=== PATIENT | male | born 1930 | race Caucasian/White ===

== ENCOUNTER 2016-08-16 12:51 | Emergency (ER) | payer MEDICARE, OTHER ==
[~2016-08-16] VITALS: Ht 188 cm; Wt 74.0 kg
[~2016-08-16 12:51] MED LIST: ADVA250A INH; ALBU17I INH; MONT5CHW2 CHEW; NEXI40CA PO; PROS5TAB2 PO; TAB-TAB; TAMS0.4C67 PO; WARF2.5 PO; ZOCO40TA PO
[2016-08-16 12:53] VITALS: BP 125/59; PULSE 72; RESP 16; TEMP 97.8; O2SAT 98
--- NOTE | 2016-08-16 14:02 | PD ---
HPI Chief Complaint: Fall Time Seen by Provider: 13:57 Travel History International Travel<30 days: No Contact w/Intl Traveler<30days: No Traveled to known affect area: No History of Present Illness HPI Patient is a 86-year-old male presenting to emergency for evaluation of head, neck, and left hip pain. Patient fell on the seventh floor just prior to arrival while he was visiting his . Patient states that he was carrying lunch and one hand and walking with his cane and the other when he tripped and fell. Patient states he fell onto his left hip hitting his head on her bed. He denies any loss of consciousness. He reports feeling dizzy after the fall. But denies any shortness of breath, chest pain, nausea, vomiting prior to or after the fall. He states the pain in his left hip is radiating down his left leg. He reports the pain as a 5 out of 10. Patient's past medical history is significant for atrial fibrillation, currently on Coumadin, pacemaker, asthma. PFSH Past Medical History Hx Anticoagulant Therapy: Yes (Coumadin) Arthritis: Yes Asthma: Yes Atrial Fibrillation: Yes (PACEMAKER, PLACED FOR THIS) Autoimmune Disease: No Cancer: Yes (skin) Chemotherapy: No Chest Pain: Yes Congestive Heart Failure: No COPD: No Diabetes: No Diminished Hearing: No Endocrine: No GERD: Yes Glaucoma: No Genitourinary: Yes (BLADDER RESECTION ) Hepatitis: No Hiatal Hernia: Yes Hypertension: No Immune Disorder: No Kidney Stones: No Neurologic: No Psychiatric: No Reproductive: No Myocardial Infarction: No Radiation Therapy: No Renal Failure: No Sickle Cell Disease: No Sleep Apnea: No Thyroid Disease: No Ulcer: No Past Surgical History Abdominal Surgery: Yes (umbilical hernia repair inquinal hernia repair) AICD: No Appendectomy: No Arteriovenous Shunt: No Cholecystectomy: No Ear Surgery: No Endocrine Surgery: No Eye Surgery: No Genitourinary Surgery: Yes (BLADDER RESECTION) Gynecologic Surgery: No Insulin Pump: No Joint Replacement: No Pacemaker: Yes Other Surgery: Yes Social History Alcohol Use: Yes (daily 3-4 oz) Tobacco Use: No Substance Use: No Allergies-Medications (Allergen,Severity, Reaction): Coded Allergies: Sulfa (Verified Allergy, Severe, RASH, 08/16/16) Aspirin (Verified Adverse Reaction, Severe, STIOMACH PAIN, 08/16/16) Morphine (Verified Adverse Reaction, Severe, Hallucinations, 08/16/16) Reported Meds & Prescriptions Reported Meds & Active Scripts Active Reported Proscar (Finasteride) 5 Mg Tab 5 Mg PO DAILY Flomax (Tamsulosin HCl) 0.4 Mg Cap 0.4 Mg PO DAILY Coumadin (Warfarin Sodium) 2.5 Mg Tab 2.5 Mg PO DAILY pt takes 2.5 mg daily except 5 mg once per week Zocor (Simvastatin) 40 Mg Tab 20 Mg PO HS Singulair (Montelukast Sodium) 5 Mg Chew 5 Mg CHEW HS Nexium (Esomeprazole) 40 Mg Cap 40 Mg PO DAILY Advair Diskus 250/50 (Salmeterol Xinafoate/Fluticasone) 250 Mcg/50 Mcg Inhp 1 Puff INH BID Multivitamin (Multivitamins) 1 Tab Tab Proventil Mdi (Albuterol Sulfate) 17 Gm Aero 2 Puff INH Q4-6HPRN Review of Systems Except as stated in HPI: all other systems reviewed are Neg HENT: No: Headaches, Lightheadedness Cardiovascular: No: Chest Pain or Discomfort Respiratory: No: Shortness of Breath Gastrointestinal: No: Nausea, Vomiting, Abdominal Pain Musculoskeletal: Positive: Myalgias, Pain Neurologic: Positive: Dizziness, No: Focal Abnormalities, Change in Mentation , Slurred Speech Physical Exam Narrative GENERAL: Well-developed, well-nourished, alert elderly gentleman. Resting comfortably in no acute distress. SKIN: Warm and dry. HEAD: Atraumatic. Normocephalic. EYES: Pupils equal and round. No scleral icterus. No injection or drainage. ENT: No nasal bleeding or discharge. Mucous membranes pink and moist. NECK: Trachea midline. No JVD. CARDIOVASCULAR: Irregularly irregular. No murmur appreciated. RESPIRATORY: No accessory muscle use. Clear to auscultation. Breath sounds equal bilaterally. GASTROINTESTINAL: Abdomen soft, non-tender, nondistended. Hepatic and splenic margins not palpable. MUSCULOSKELETAL: No obvious deformities. No clubbing. No cyanosis. No edema. NEUROLOGICAL: Awake and alert. No obvious cranial nerve deficits. Motor grossly within normal limits. Normal speech. PSYCHIATRIC: Appropriate mood and affect; insight and judgment normal. Data Data Last Documented VS Vital Signs Date Time Temp Pulse Resp B/P Pulse Ox O2 Delivery O2 Flow Rate FiO2 08/16/16 12:53 97.8 72 16 125/59 98 Orders Complete Blood Count With Diff (08/16/16 13:43) Basic Metabolic Panel (Bmp) (08/16/16 13:43) Act Partial Throm Time (Ptt) (08/16/16 13:43) Prothrombin Time / Inr (Pt) (08/16/16 13:43) Ct Brain W/O Iv Contrast(Rout) (08/16/16 ) Ct Cerv Spine W/O Contrast (08/16/16 ) Hip, Uni(Ap&Lat) W Ap Pelvis (08/16/16 ) Spine, Lumbar - Ltd (Ap & Lat) (08/16/16 ) Acetaminophen (Tylenol) (08/16/16 15:30) Collar [place] (08/16/16 ) Labs Laboratory Tests Test 08/16/16 14:45 White Blood Count 6.6 TH/MM3 Red Blood Count 3.73 MIL/MM3 Hemoglobin 12.1 GM/DL Hematocrit 34.6 % Mean Corpuscular Volume 92.6 FL Mean Corpuscular Hemoglobin 32.5 PG Mean Corpuscular Hemoglobin 35.1 % Concent Red Cell Distribution Width 15.3 % Platelet Count 207 TH/MM3 Mean Platelet Volume 8.4 FL Neutrophils (%) (Auto) 71.2 % Lymphocytes (%) (Auto) 16.1 % Monocytes (%) (Auto) 10.4 % Eosinophils (%) (Auto) 1.1 % Basophils (%) (Auto) 1.2 % Neutrophils # (Auto) 4.7 TH/MM3 Lymphocytes # (Auto) 1.1 TH/MM3 Monocytes # (Auto) 0.7 TH/MM3 Eosinophils # (Auto) 0.1 TH/MM3 Basophils # (Auto) 0.1 TH/MM3 CBC Comment DIFF FINAL Differential Comment Prothrombin Time 21.4 SEC Prothromb Time International 1.9 RATIO Ratio Activated Partial 34.7 SEC Thromboplast Time Sodium Level 139 MEQ/L Potassium Level 4.1 MEQ/L Chloride Level 103 MEQ/L Carbon Dioxide Level 27.1 MEQ/L Anion Gap 9 MEQ/L Blood Urea Nitrogen 34 MG/DL Creatinine 1.26 MG/DL Estimat Glomerular Filtration 54 ML/MIN Rate Random Glucose 89 MG/DL Calcium Level 9.5 MG/DL MDM Medical Decision Making Medical Screen Exam Complete: Yes Emergency Medical Condition: Yes Interpretation(s) Vital Signs Date Time Temp Pulse Resp B/P Pulse Ox O2 Delivery O2 Flow Rate FiO2 08/16/16 12:53 97.8 72 16 125/59 98 Differential Diagnosis Fracture versus dislocation versus contusion versus hemorrhage versus concussion versus other Narrative Course Patient is an 86-year-old male presenting to emergency Department for evaluation after fall. Patient is currently anticoagulated on Coumadin. Labs and imaging ordered and pending. Workup initiated triage, care patient will be transferred to a provider when a medical bed is available. Rachel Goldman Aug 16, 2016 14:02
--- NOTE | 2016-08-16 14:20 | RADRPT ---
EXAM DATE/TIME: 08/16/2016 14:01 [facility] COMPARISON: No previous studies available for comparison. INDICATIONS : Fall today. RADIATION DOSE: 35.57 CTDIvol (mGy) MEDICAL HISTORY : Cardiovascular disease. Hernia, hiatal. SURGICAL HISTORY : None. ENCOUNTER: Initial ACUITY: 1 day PAIN SCALE: 7/10 LOCATION: cranial TECHNIQUE: Multiple contiguous axial images were obtained of the head. Using automated exposure control and adj ustment of the mA and/or kV according to patient size, radiation dose was kept as low as reasonably a chievable to obtain optimal diagnostic quality images. FINDINGS: CEREBRUM: The ventricles are normal for age. No evidence of midline shift, mass lesion, hemorrhage or acute in farction. No extra-axial fluid collections are seen. POSTERIOR FOSSA: The cerebellum and brainstem are intact. The 4th ventricle is midline. The cerebellopontine angle i s unremarkable. EXTRACRANIAL: The visualized portion of the orbits is intact. SKULL: The calvaria is intact. No evidence of skull fracture. CONCLUSION: No acute intracranial disease. Per Vivar MD on August 16, 2016 at 14:17 Board Certified Radiologist. This report was verified electronically.
--- NOTE | 2016-08-16 14:46 | RADRPT ---
EXAM DATE/TIME: 08/16/2016 14:01 [facility] COMPARISON: No previous studies available for comparison. INDICATIONS : Fall today RADIATION DOSE: 21.60 CTDIvol (mGy) MEDICAL HISTORY : Cardiovascular disease. Hernia, hiatal. SURGICAL HISTORY : None. ENCOUNTER: Initial ACUITY: 1 day PAIN SCALE: 7/10 LOCATION: Neck TECHNIQUE: Volumetric scanning of the cervical spine was performed. Multiplanar reconstructions i n the sagittal, coronal and oblique axial planes were performed. Using automated exposure control a nd adjustment of the mA and/or kV according to patient size, radiation dose was kept as low as reason ably achievable to obtain optimal diagnostic quality images. FINDINGS: VERTEBRAE: Normal vertebral body height. ALIGNMENT: No evidence of subluxation. C2-C3: The bony spinal canal is normal in size. No evidence of disc bulge or herniation. The neura l foramina are bilaterally patent. There is mild facet hypertrophy. C3-C4: There is minimal asymmetric disc bulge being worse on the right with mild osteophytic ridging . There is facet uncovertebral hypertrophy being worse on the right causing some narrowing at the ri ght neural foramina. The left neural foramina appears intact. C4-C5: Disc space is narrowed. A significant impression on the thecal sac is not seen. There is mil d uncovertebral and facet hypertrophy. There is some narrowing at the neural foramina. C5-C6: Disc space is narrowed. There is a vacuum phenomenon. There is some mild posterior osteophyt ic ridging. There is uncovertebral hypertrophy particularly on the left. There is minimal narrowing of the left neural foramina. The right neural foramina appears intact. C6-C7: Disc space is narrowed. There is a vacuum phenomenon. A significant impression on the thecal sac is not seen. The neural foramina are grossly normal. C7-T1: The bony spinal canal is normal in size. No evidence of disc bulge or herniation. The neura l foramina are bilaterally patent. There is mild facet hypertrophy. CONCLUSION: Degenerative changes throughout the cervical spine. An acute bony abnormality is not seen. Raymond Mathew MD on August 16, 2016 at 14:27 Board Certified Radiologist. This report was verified electronically.
--- NOTE | 2016-08-16 14:49 | RADRPT ---
EXAM DATE/TIME: 08/16/2016 14:14 [facility] COMPARISON: No previous studies available for comparison. INDICATIONS : Fell today at the hospital MEDICAL HISTORY : None. SURGICAL HISTORY : None. ENCOUNTER: Initial ACUITY: 1 day PAIN SCORE: 6/10 LOCATION: Bilateral lumbar spine FINDINGS: Two view examination was performed. There are five non-rib bearing vertebral bodies. Mild degenerati ve changes. No fracture or subluxation. The pedicles are intact. Bony mineralization is normal. No fracture is identified. CONCLUSION: Mild degenerative changes without fracture. Per Vivar MD on August 16, 2016 at 14:47 Board Certified Radiologist. This report was verified electronically.
--- NOTE | 2016-08-16 14:50 | RADRPT ---
EXAM DATE/TIME: 08/16/2016 14:14 [facility] COMPARISON: No previous studies available for comparison. INDICATIONS : Fell today at the hospital. MEDICAL HISTORY : None. SURGICAL HISTORY : abdomen surgery for large diverticulum ENCOUNTER: Initial ACUITY: 1 day PAIN SCORE: 8/10 LOCATION: Left hip and pelvis FINDINGS: Examination of the left hip was performed with AP Pelvis. The primary and secondary trabecular patte rn of the femoral neck is intact. The hip joint is of normal width without significant sclerosis or bony hypertrophy. The acetabulum is grossly intact. Surgical clips left pelvis. CONCLUSION: No acute fracture. Per Vivar MD on August 16, 2016 at 14:48 Board Certified Radiologist. This report was verified electronically.
[2016-08-16 15:07] LABS: AUTOMATED NEUTROPHIL # 4.7 TH/MM3 (1.8-7.7); BASOPHIL # 0.1 TH/MM3 (0-0.2); BASOPHIL % 1.2 % (0.0-2.0); EOSINOPHIL # 0.1 TH/MM3 (0-0.4); EOSINOPHIL % 1.1 % (0.0-4.0); HEMATOCRIT 34.6 % (39.0-51.0); HEMO FLAGS DIFF FINAL; LYMPH % 16.1 % (9.0-44.0); LYMPHOCYTE # 1.1 TH/MM3 (1.0-4.8); MEAN CELL VOLUME 92.6 FL (80.0-100.0); MEAN CORPUSCULAR HEMOGLOBIN 32.5 PG (27.0-34.0); MEAN CORPUSCULAR HGB CONC 35.1 % (32.0-36.0); MONO % 10.4 % (0.0-8.0); NEUT % 71.2 % (16.0-70.0); PLATELET COUNT 207 TH/MM3 (150-450); RED BLOOD COUNT 3.73 MIL/MM3 (4.50-5.90); RED CELL DISTRIBUTION WIDTH 15.3 % (11.6-17.2); WHITE BLOOD COUNT 6.6 TH/MM3 (4.0-11.0)
[2016-08-16 15:29] LABS: APTT (PATIENT) 34.7 SEC (24.3-30.1); BICARBONATE 27.1 MEQ/L (21.0-32.0); INTERNATIONAL NORMALIZED RATIO 1.9 RATIO; POTASSIUM 4.1 MEQ/L (3.5-5.1); PROTHROMBIN TIME - PATIENT 21.4 SEC (9.8-11.6)
[2016-08-16] MEDS ORDERED: ACETAMINOPHEN 500 MG CPLT PO ONE (15:30)
--- NOTE | 2016-08-16 15:40 | PD ---
Data Data Last Documented VS Vital Signs Date Time Temp Pulse Resp B/P Pulse Ox O2 Delivery O2 Flow Rate FiO2 08/16/16 12:53 97.8 72 16 125/59 98 Orders Complete Blood Count With Diff (08/16/16 13:43) Basic Metabolic Panel (Bmp) (08/16/16 13:43) Act Partial Throm Time (Ptt) (08/16/16 13:43) Prothrombin Time / Inr (Pt) (08/16/16 13:43) Ct Brain W/O Iv Contrast(Rout) (08/16/16 ) Ct Cerv Spine W/O Contrast (08/16/16 ) Hip, Uni(Ap&Lat) W Ap Pelvis (08/16/16 ) Spine, Lumbar - Ltd (Ap & Lat) (08/16/16 ) Acetaminophen (Tylenol) (08/16/16 15:30) Labs Laboratory Tests Test 08/16/16 14:45 White Blood Count 6.6 TH/MM3 Red Blood Count 3.73 MIL/MM3 Hemoglobin 12.1 GM/DL Hematocrit 34.6 % Mean Corpuscular Volume 92.6 FL Mean Corpuscular Hemoglobin 32.5 PG Mean Corpuscular Hemoglobin 35.1 % Concent Red Cell Distribution Width 15.3 % Platelet Count 207 TH/MM3 Mean Platelet Volume 8.4 FL Neutrophils (%) (Auto) 71.2 % Lymphocytes (%) (Auto) 16.1 % Monocytes (%) (Auto) 10.4 % Eosinophils (%) (Auto) 1.1 % Basophils (%) (Auto) 1.2 % Neutrophils # (Auto) 4.7 TH/MM3 Lymphocytes # (Auto) 1.1 TH/MM3 Monocytes # (Auto) 0.7 TH/MM3 Eosinophils # (Auto) 0.1 TH/MM3 Basophils # (Auto) 0.1 TH/MM3 CBC Comment DIFF FINAL Differential Comment Prothrombin Time 21.4 SEC Prothromb Time International 1.9 RATIO Ratio Activated Partial 34.7 SEC Thromboplast Time Sodium Level 139 MEQ/L Potassium Level 4.1 MEQ/L Chloride Level 103 MEQ/L Carbon Dioxide Level 27.1 MEQ/L Anion Gap 9 MEQ/L Blood Urea Nitrogen 34 MG/DL Creatinine 1.26 MG/DL Estimat Glomerular Filtration 54 ML/MIN Rate Random Glucose 89 MG/DL Calcium Level 9.5 MG/DL [facility] Supervised Visit with TORSTEN: Yes Narrative Course I, Dr. Powers, have reviewed the advance practice practioner's documentation and am in agreement, met with the patient face to face, made the diagnosis, and the medical decision making was done by me. *My assessment and Findings: 86-year-old male here with complaint of pain after a trip and fall. Patient was visiting his who is impatient here. States he tripped, falling and landing on his buttock/left hip and then hit his head on the bed rail. No LOC. Patient was able to ambulate without any significant pain to the left hip. Concern is he takes Coumadin for history of atrial fibrillation. On exam, GCS 15. No evidence of external head trauma, no midline tenderness to palpation of the thoracic or lumbar spine on my evaluation. Rate which and left hip is full. CT of the head, neck and x-rays of the left hip, lumbar spine were negative. Laboratory workup unremarkable and patient was reassured and discharged. Given Tylenol for discomfort. Able to inflate without difficulty. Diagnosis Primary Impression: Contusion of left hip Qualified Code: S70.02XA - Contusion of left hip, initial encounter Additional Impressions: Closed head injury Qualified Code: S09.90XA - Closed head injury, initial encounter Fall Qualified Code: W19.XXXA - Fall, initial encounter Referrals: Primary Care Physician as needed Additional Instruction: Tylenol as needed for pain. Return to the emergency department for the warning signs discussed. Med/Other Pt SpecificInfo: No Change to Meds Disposition: 01 DISCHARGE HOME Condition: Stable Becky Powers MD Aug 16, 2016 15:40
== END 2016-08-16 16:10 | disposition home or self-care (01) ==
LOC: NEPE 12:51
DX: S70.02XA Contusion of left hip, initial encounter (principal); R42 Dizziness and giddiness; J45.909 Unspecified asthma, uncomplicated; I48.91 Unspecified atrial fibrillation; S09.90XA Unspecified injury of head, initial encounter; W01.190A Fall on same level from slipping, tripping and stumbling with subsequent striking against furniture, initial encounter; Y93.01 Activity, walking, marching and hiking; Y92.230 Patient room in hospital as the place of occurrence of the external cause; Z79.01 Long term (current) use of anticoagulants
CPT/HCPCS: 70450; 72100; 72125; 73502; 80048; 85025; 85610; 85730; 99284; L0150

== ENCOUNTER 2017-03-27 21:51 | Observation (INO) | payer MEDICARE, OTHER ==
[~2017-03-27] VITALS: Ht 188 cm; Wt 80.0 kg
[2017-03-27 22:02] VITALS: BP 226/95; PULSE 104; RESP 22; TEMP 99.5; O2SAT 96
[2017-03-27 22:08] VITALS: BP 159/76; PULSE 71; RESP 20; TEMP 97.7; O2SAT 100
--- NOTE | 2017-03-27 22:09 | PD ---
HPI Chief Complaint: Respiratory Distress Time Seen by Provider: 22:08 Travel History International Travel<30 days: No Contact w/Intl Traveler<30days: No Traveled to known affect area: No History of Present Illness HPI 86-year-old male with history of CAD, A. fib, pacemaker placement, asthma, presents to emergency department for evaluation. Patient states earlier this evening after dinner he had a fall. He states he has unsteady balance and while walking he became off balance and fell, landing on his buttocks. Did not strike his head or lose consciousness. He states since that incident he has had a chest discomfort, pressure, substernal in nature does not radiate anywhere. It has been accompanied by shortness of breath. Patient states he went home and tried to relax. He had to change his clothes because he was very diaphoretic following the fall. He continued to have shortness of breath. He contacted his son who then contacted [facility]. Patient was reported breathing 40 times per minute when [facility] arrived. Oxygen was placed in the patient states this helped alleviate his symptoms mildly but he continues to still feel shortness of breath. Denies any nausea or vomiting. Denies any focal deficits or weakness. He is having no pain. He has no other symptoms to report. PFSH Past Medical History Hx Anticoagulant Therapy: Yes (Coumadin) Arthritis: Yes Asthma: Yes Atrial Fibrillation: Yes (PACEMAKER, PLACED FOR THIS) Autoimmune Disease: No Cancer: Yes (skin) Chemotherapy: No Chest Pain: Yes Congestive Heart Failure: No COPD: No Diabetes: No Diminished Hearing: No Endocrine: No GERD: Yes Glaucoma: No Genitourinary: Yes (BLADDER RESECTION ) Hepatitis: No Hiatal Hernia: Yes Hypertension: No Immune Disorder: No Kidney Stones: No Neurologic: No Psychiatric: No Reproductive: No Myocardial Infarction: No Radiation Therapy: No Renal Failure: No Sickle Cell Disease: No Sleep Apnea: No Thyroid Disease: No Ulcer: No Past Surgical History Abdominal Surgery: Yes (umbilical hernia repair inquinal hernia repair) AICD: No Appendectomy: No Arteriovenous Shunt: No Cholecystectomy: No Ear Surgery: No Endocrine Surgery: No Eye Surgery: No Genitourinary Surgery: Yes (BLADDER RESECTION) Gynecologic Surgery: No Insulin Pump: No Joint Replacement: No Pacemaker: Yes Other Surgery: Yes Social History Alcohol Use: Yes (daily 3-4 oz) Tobacco Use: No Substance Use: No Allergies-Medications (Allergen,Severity, Reaction): Coded Allergies: Sulfa (Sulfonamide Antibiotics) (Verified Allergy, Severe, RASH, 03/27/17) aspirin (Verified Adverse Reaction, Severe, STIOMACH PAIN, 03/27/17) morphine (Verified Adverse Reaction, Severe, Hallucinations, 03/27/17) Reported Meds & Prescriptions Reported Meds & Active Scripts Active Reported Proscar (Finasteride) 5 Mg Tab 5 Mg PO DAILY Flomax (Tamsulosin HCl) 0.4 Mg Cap 0.4 Mg PO DAILY Coumadin (Warfarin Sodium) 2.5 Mg Tab 2.5 Mg PO DAILY pt takes 2.5 mg daily except 5 mg once per week Zocor (Simvastatin) 40 Mg Tab 20 Mg PO HS Singulair (Montelukast Sodium) 5 Mg Chew 5 Mg CHEW HS Nexium (Esomeprazole) 40 Mg Cap 40 Mg PO DAILY Advair Diskus 250/50 (Salmeterol Xinafoate/Fluticasone) 250 Mcg/50 Mcg Inhp 1 Puff INH BID Multivitamin (Multivitamins) 1 Tab Tab Proventil Mdi (Albuterol Sulfate) 17 Gm Aero 2 Puff INH Q4-6HPRN Review of Systems Except as stated in HPI: all other systems reviewed are Neg Physical Exam Narrative GENERAL: Well-nourished male patient, sitting up in bed, seemingly anxious, in no acute distress. SKIN: Focused skin assessment warm/dry. HEAD: Atraumatic. Normocephalic. EYES: Pupils equal and round. No scleral icterus. No injection or drainage. ENT: No nasal bleeding or discharge. Mucous membranes pink and moist. NECK: Trachea midline. No JVD. CARDIOVASCULAR: Regular rate and paced rhythm. No murmur appreciated. RESPIRATORY: Tachypneic. No accessory muscle use. Diminished bases, otherwise clear to auscultation. Breath sounds equal bilaterally. GASTROINTESTINAL: Abdomen soft, non-tender, nondistended. Hepatic and splenic margins not palpable. MUSCULOSKELETAL: No obvious deformities. No clubbing. No cyanosis. No edema. NEUROLOGICAL: Awake and alert. No obvious cranial nerve deficits. Motor grossly within normal limits. Normal speech. PSYCHIATRIC: Appropriate mood and affect; insight and judgment normal. Data Data Last Documented VS Vital Signs Date Time Temp Pulse Resp B/P (MAP) Pulse Ox O2 Delivery O2 Flow Rate FiO2 03/27/17 22:27 77 20 145/76 (99) 99 Nasal Cannula 2.00 139/74 (95) 03/27/17 22:08 97.7 Orders Orders Electrocardiogram (03/27/17 22:08) Basic Metabolic Panel (Bmp) (03/27/17 22:08) B-Type Natriuretic Peptide (03/27/17 22:08) Ckmb (Isoenzyme) Profile (03/27/17 22:08) Complete Blood Count With Diff (03/27/17:) D-Dimer (03/27/17 22:08) Magnesium (Mg) (03/27/17 22:08) Prothrombin Time / Inr (Pt) (03/27/17:08) Act Partial Throm Time (Ptt) (03/27/17:) Troponin I (03/27/17 22:08) Chest, Single Ap (03/27/17 22:08) Ecg Monitoring (03/27/17 22:08) Bilateral Bp Monitoring (03/27/17:08) Iv Access Insert/Monitor (03/27/17:) Oximetry (03/27/17 22:08) Oxygen Administration (03/27/17 22:08) Sodium Chloride 0.9% Flush (Ns Flush) (03/27/17 22:15) Sodium Chlorid 0.9% 500 Ml Inj (Ns 500 M (03/27/17 22:15) Hip, Uni(Ap&Lat) W Ap Pelvis (03/27/17 ) MDM Medical Decision Making Medical Screen Exam Complete: Yes Emergency Medical Condition: Yes Medical Record Reviewed: Yes Differential Diagnosis Asthma exacerbation versus ACS versus anginal equivalent versus PE versus anxiety Narrative Course 86-year-old male presents to the emergency department for evaluation of shortness of breath. Patient appears tachypneic. He is moderately anxious. EKG is with a paced rhythm, reviewed by my attending physician. Workup is initiated. 2300 Pt is signed out to my attending. She will assume care at this time. Condition: Stable Jessica Barksdale YOSELIN Mar 27, 2017 22:09
[2017-03-27] MEDS ORDERED: SODIUM CHLORIDE 0.9% FLUSH 10 ML FLUSH IVF PRN (22:15)
[2017-03-27] MEDS ORDERED: SODIUM CHLORID 0.9% 500 ML INJ 500 ML IV ONE (22:15)
[2017-03-27 22:27] VITALS: BP_SYST 139; BP_SYST 145; BP_DIAS 74; BP_DIAS 76; PULSE 77; RESP 20; O2SAT 99
--- NOTE | 2017-03-27 22:32 | RADRPT ---
EXAM DATE/TIME: 03/27/2017 22:12 [facility] COMPARISON: No previous studies available for comparison. INDICATIONS : Chest pain MEDICAL HISTORY : Cardiovascular disease. Hernia, hiatal. SURGICAL HISTORY : Pacemaker. ENCOUNTER: Initial ACUITY: 1 day PAIN SCORE: 0/10 LOCATION: chest FINDINGS: Pacemaker device is noted with control pack over the left chest. Lungs are focally clear. Heart size is upper limits of normal. Mediastinal contours are satisfactory for technique and projection. CONCLUSION: No acute disease. Raymond Uriostegui MD on March 27, 2017 at 22:30 Board Certified Radiologist. This report was verified electronically.
[2017-03-27 22:43] LABS: AUTOMATED NEUTROPHIL # 3.5 TH/MM3 (1.8-7.7); BASOPHIL # 0.1 TH/MM3 (0-0.2); BASOPHIL % 1.2 % (0.0-2.0); EOSINOPHIL # 0.1 TH/MM3 (0-0.4); EOSINOPHIL % 2.1 % (0.0-4.0); HEMATOCRIT 29.8 % (39.0-51.0); HEMO FLAGS DIFF FINAL; LYMPH % 30.1 % (9.0-44.0); LYMPHOCYTE # 1.8 TH/MM3 (1.0-4.8); MEAN CELL VOLUME 94.7 FL (80.0-100.0); MEAN CORPUSCULAR HEMOGLOBIN 33.7 PG (27.0-34.0); MEAN CORPUSCULAR HGB CONC 35.6 % (32.0-36.0); MONO % 9.9 % (0.0-8.0); NEUT % 56.7 % (16.0-70.0); PLATELET COUNT 211 TH/MM3 (150-450); RED BLOOD COUNT 3.14 MIL/MM3 (4.50-5.90); RED CELL DISTRIBUTION WIDTH 14.9 % (11.6-17.2); WHITE BLOOD COUNT 6.1 TH/MM3 (4.0-11.0)
[2017-03-27] MEDS ORDERED: LORazepam 2 MG/ML VIAL IV PUSH ONE (22:45)
[2017-03-27 23:00] LABS: ANION GAP 11 MEQ/L (5-15); BICARBONATE 21.4 MEQ/L (21.0-32.0); BLOOD UREA NITROGEN 33 MG/DL (7-18); CHLORIDE 106 MEQ/L (98-107); GLOMERULAR FILTRATION RATE 50 ML/MIN (>89); MAGNESIUM 1.9 MG/DL (1.5-2.5); POTASSIUM 3.7 MEQ/L (3.5-5.1); SODIUM (NA) 138 MEQ/L (136-145)
[2017-03-27 23:02] LABS: APTT (PATIENT) 26.1 SEC (24.3-30.1); INTERNATIONAL NORMALIZED RATIO 1.6 RATIO; PROTHROMBIN TIME - PATIENT 17.9 SEC (9.8-11.6)
[2017-03-27 23:04] LABS: CREATINE KINASE 236 U/L (39-308)
--- NOTE | 2017-03-27 23:04 | RADRPT ---
EXAM DATE/TIME: 03/27/2017 22:40 [facility] COMPARISON: No previous studies available for comparison. INDICATIONS : Right hip pain, fell MEDICAL HISTORY : Cardiovascular disease. Hernia, hiatal SURGICAL HISTORY : Pacemaker ENCOUNTER: Initial ACUITY: 1 day PAIN SCORE: 2/10 LOCATION: Right Hip FINDINGS: Examination of the right hip was performed with AP Pelvis. Mild degenerative changes of each hip. No fracture seen. Postsurgical changes left pelvis and lower abdomen on the right. The acetabulum is gr ossly intact. CONCLUSION: 1. Mild degenerative changes of the right hip without fracture. Per Vivar MD on March 27, 2017 at 23:02 Board Certified Radiologist. This report was verified electronically.
[2017-03-27 23:16] LABS: CKMB 9.7 NG/ML (0.5-3.6)
[2017-03-28] VITALS (7 sets, daily range): BP systolic 108–142; BP diastolic 61–71; PULSE 68–75; RESP 16–18; TEMP 97.6–98.3; O2SAT 97–99
--- NOTE | 2017-03-28 01:17 | PD ---
Data Data Last Documented VS Vital Signs Date Time Temp Pulse Resp B/P (MAP) Pulse Ox O2 Delivery O2 Flow Rate FiO2 03/28/17 01:00 68 18 142/71 (94) 99 Room Air 03/27/17 22:27 2.00 03/27/17 22:08 97.7 Orders Orders Electrocardiogram (03/27/17 22:08) Basic Metabolic Panel (Bmp) (03/27/17 22:08) B-Type Natriuretic Peptide (03/27/17 22:08) Ckmb (Isoenzyme) Profile (03/27/17 22:08) Complete Blood Count With Diff (03/27/17 22:08) D-Dimer (03/27/17 22:08) Magnesium (Mg) (03/27/17 22:08) Prothrombin Time / Inr (Pt) (03/27/17 22:08) Act Partial Throm Time (Ptt) (03/27/17 22:08) Troponin I (03/27/17 22:08) Chest, Single Ap (03/27/17 22:08) Ecg Monitoring (03/27/17 22:08) Bilateral Bp Monitoring (03/27/17 22:08) Iv Access Insert/Monitor (03/27/17 22:08) Oximetry (03/27/17 22:08) Oxygen Administration (03/27/17 22:08) Sodium Chloride 0.9% Flush (Ns Flush) (03/27/17 22:15) Sodium Chlorid 0.9% 500 Ml Inj (Ns 500 M (03/27/17 22:15) Hip, Uni(Ap&Lat) W Ap Pelvis (03/27/17 ) Lorazepam Inj (Ativan Inj) (03/27/17 22:45) CKMB (03/27/17 22:10) CKMB% (03/27/17 22:10) Ct Pulmonary Angiogram (03/27/17 23:46) Nitroglycerin 2% Oint (Nitroglycerin 2% (03/28/17 01:30) Iohexol 350 Inj (Omnipaque 350 Inj) (03/28/17 03:11) Admit Order (Ed Use Only) (03/28/17 03:31) Labs Laboratory Tests Test 03/27/17 22:10 White Blood Count 6.1 TH/MM3 Red Blood Count 3.14 MIL/MM3 Hemoglobin 10.6 GM/DL Hematocrit 29.8 % Mean Corpuscular Volume 94.7 FL Mean Corpuscular Hemoglobin 33.7 PG Mean Corpuscular Hemoglobin Concent 35.6 % Red Cell Distribution Width 14.9 % Platelet Count 211 TH/MM3 Mean Platelet Volume 8.7 FL Neutrophils (%) (Auto) 56.7 % Lymphocytes (%) (Auto) 30.1 % Monocytes (%) (Auto) 9.9 % Eosinophils (%) (Auto) 2.1 % Basophils (%) (Auto) 1.2 % Neutrophils # (Auto) 3.5 TH/MM3 Lymphocytes # (Auto) 1.8 TH/MM3 Monocytes # (Auto) 0.6 TH/MM3 Eosinophils # (Auto) 0.1 TH/MM3 Basophils # (Auto) 0.1 TH/MM3 CBC Comment DIFF FINAL Differential Comment Prothrombin Time 17.9 SEC Prothromb Time International Ratio 1.6 RATIO Activated Partial Thromboplast Time 26.1 SEC D-Dimer Quantitative (PE/DVT) 3.01 MG/L FEU Blood Urea Nitrogen 33 MG/DL Creatinine 1.34 MG/DL Random Glucose 93 MG/DL Calcium Level 9.4 MG/DL Magnesium Level 1.9 MG/DL Sodium Level 138 MEQ/L Potassium Level 3.7 MEQ/L Chloride Level 106 MEQ/L Carbon Dioxide Level 21.4 MEQ/L Anion Gap 11 MEQ/L Estimat Glomerular Filtration Rate 50 ML/MIN Total Creatine Kinase 236 U/L Creatine Kinase MB 9.7 NG/ML Troponin I 0.02 NG/ML B-Type Natriuretic Peptide 145 PG/ML [place] Medical Record Reviewed: Yes Supervised Visit with TORSTEN: Yes Interpretation(s) Last Impressions Myocardial Perfusion Scan Nuc Med 03/28/17 0000 Signed Impressions: Service Date/Time: Tuesday, March 28, 2017 12:51 - CONCLUSION: 1. No evidence of stress-induced ischemia. 2. Intact wall motion with a 61%% ejection fraction. RISK CATEGORY: Low (<1%% Annual Mortality Rate) Mayito Tellez MD CT Angiography 03/27/17 2346 Signed Impressions: Service Date/Time: Tuesday, March 28, 2017 03:10 - CONCLUSION: 1. No evidence for pulmonary embolism. 2. Minimal bibasilar patchy infiltrates. 3. Cardiomegaly minimal coronary artery calcifications. Per Vivar MD Chest X-Ray 03/27/17 2208 Signed Impressions: Service Date/Time: Monday, March 27, 2017 22:12 - CONCLUSION: No acute disease. Raymond Uriostegui MD Hip and Pelvis X-Ray 03/27/17 0000 Signed Impressions: Service Date/Time: Monday, March 27, 2017 22:40 - CONCLUSION: 1. Mild degenerative changes of the right hip without fracture. Per Vivar MD Differential Diagnosis Acute coronary syndrome, versus pulmonary embolism, versus COPD exacerbation, versus new-onset congestive heart failure Narrative Course I, Dr. Casarez, have reviewed the advance practice practitioner's documentation and am in agreement, met with the patient face to face, made the diagnosis, and the medical decision making was done by me. The patient was initially evaluated by Jessica. Please see her complete history and physical. *My assessment and Findings: The patient is an 86-year-old male who presents to [facility] emergency Department with a history of reported chest pain and shortness of breath that began earlier today. He During the course of the patients emergency department visit, the patients history, examination, and differential diagnosis were reviewed with the patient. The patient was placed on a tenant selector with oximetry and frequent blood pressure monitoring. The patient had IV access obtained and blood work sent for analysis. The patient was initially provided normal saline a 500 mL bolus, Ativan for anxiety, nitroglycerin 1 inch paste the chest wall. The patient was not provided aspirin due to his aspirin allergy. The patients laboratory studies were reviewed and remarkable for [white count of 6.1, hemoglobin 10.6, platelets 211 with 9.9 monocytes, basic metabolic profile is remarkable for BUN of 33, creatinine 1.34, CPK 236, troponin I 0.02, BNP 145, PT 17.9, INR 1.6, d-dimer 3.01. The CTA to rule out PE was ordered. Radiology studies were reviewed and remarkable for a chest x-ray and a pelvis/ hip x-ray that showed no acute abnormality. CTA to rule out PE showed no evidence of pulmonary embolism. The patients results were discussed with the patient, including the plan of care. I explained that further testing and/ or monitoring is indicated based on the patients history, examination, and/ or laboratory findings. Therefore, I recommended admission for additional evaluation. The patient expressed understanding and was agreeable with this plan. The patient was admitted to the hospital in stable condition and sent to a bed under the care of the chest pain center. Diagnosis Primary Impression: Atypical chest pain Additional Impression: Shortness of breath Admitting Information Admitting Physician Requests: Observation Condition: Stable Lula Casarez MD Mar 28, 2017 01:17
[2017-03-28] MEDS ORDERED: NITROGLYCERIN 2% OINT 1 GM PACKET TOPICAL ONE (01:30)
[2017-03-28] MEDS ORDERED: IOHEXOL 350 MG/ML 10 ML VIAL (for RAD DIAG) IVCONTRAST ONE (03:11)
--- NOTE | 2017-03-28 03:25 | RADRPT ---
EXAM DATE/TIME: 03/28/2017 03:10 [facility] COMPARISON: No previous studies available for comparison. INDICATIONS : Shortness of breath. IV CONTRAST: 70 cc Omnipaque 350 (iohexol) IV RADIATION DOSE: 23.38 CTDIvol (mGy) MEDICAL HISTORY : Cardiovascular disease. Hernia, hiatal. Gastroesophageal reflux disease. SURGICAL HISTORY : Pacemaker. ENCOUNTER: Initial ACUITY: 1 day PAIN SCALE: 0/10 LOCATION: Bilateral chest TECHNIQUE: Volumetric scanning of the chest was performed using a pulmonary embolism protocol MIP images were re constructed. Using automated exposure control and adjustment of the mA and/or kV according to patien t size, radiation dose was kept as low as reasonably achievable to obtain optimal diagnostic quality images. DICOM format image data is available electronically for review and comparison. Follow-up recommendations for detected pulmonary nodules are based at a minimum on nodule size and pa tient risk factors according to Fleischner Society Guidelines. FINDINGS: PULMONARY ARTERIES: No filling defects are seen in the pulmonary arteries through the segmental level. LUNGS: Minimal patchy densities lower lobes There is no pneumothorax . No concerning pulmonary nodule is vi sualized. PLEURAE: There is no pleural thickening or pleural effusion. MEDIASTINUM: There is good visualization of the great vessels of the middle mediastinum. No evidence of mediastin al or hilar adenopathy/mass. Cardiomegaly. Coronary artery calcifications. MUSCULOSKELETAL: Within normal limits for patient age. MISCELLANEOUS: The visualized upper abdominal organs demonstrate no acute abnormality. Cholecystectomy clips. CONCLUSION: 1. No evidence for pulmonary embolism. 2. Minimal bibasilar patchy infiltrates. 3. Cardiomegaly minimal coronary artery calcifications. Per Vivar MD on March 28, 2017 at 3:22 Board Certified Radiologist. This report was verified electronically.
[2017-03-28] MEDS ORDERED: SODIUM CHLORIDE 0.9% FLUSH 10 ML FLUSH IV FLUSH PRN (04:30)
[2017-03-28] MEDS ORDERED: ACETAMINOPHEN 500 MG CPLT PO PRN ×2 (04:30→10:00)
[2017-03-28 05:56] LABS: CREATINE KINASE 172 U/L (39-308)
[2017-03-28 06:10] LABS: CKMB 7.7 NG/ML (0.5-3.6)
--- NOTE | 2017-03-28 08:01 | HHI.HP ---
HPI Primary Care Physician Steven Milton DO Chief Complaint Chest pressure History of Present Illness 86-year-old male with history of A. fib, pacemaker, and asthma presents to emergency room for further evaluation of chest pressure. States after leaving a restaurant last evening he lost his footing and fell onto his buttocks. Denies loss of consciousness, near syncope, dizziness, or hitting his head. Reports falling 2 times this week. Proceeded home, changed his clothing ( raining out during his fall), and sat down to watch TV. Reports a gradual onset of shortness of breath, heart racing, dizziness, and substernal chest pressure. Onset 8pm. No radiation of pain. Duration one hour. No associated symptoms of nausea, vomiting, or diaphoresis. No known precipitating or relieving factors. His son called EMS. Since arrival to ED reports intermittent chest pressure lasting "a few minutes." Denies any current chest pressure. Review of Systems General: No fatigue,weakness, fever, chills, recent illness, or change in appetite. His a few months ago. Has been in his general state of health. Had pacemaker interrogated yesterday morning. HEENT: No BOOTH, no vision changes CV: As stated above. No current chest pain or pressure. History of afib, on warfarin, INR checks monthly with his PCP. Feeling of heart racing and dizziness has resolved. RESP: No SOB, cough, or recent URI. No home oxygen. History of asthma. GI: No nausea, vomiting, or bowel changes. No unintentional weight gain or weight loss. : No dysuria, urgency, or frequency EXT: No lower leg edema, no paraesthesias MS: No discomfort, change in ROM, injury, or trauma. Fell x2 this week onto buttocks. Reports "losing my footing." Ambulated with a walker. NEURO: No change in memory, LOC, motor/sensory deficits PSYCH: No anxiety or depression. Endorses recent situational stress after the of his . SKIN: No rashes, no concerning lesions Past Family Social History Allergies: Coded Allergies: Sulfa (Sulfonamide Antibiotics) (Verified Allergy, Severe, RASH, 03/27/17) aspirin (Verified Adverse Reaction, Severe, STIOMACH PAIN, 03/27/17) morphine (Verified Adverse Reaction, Severe, Hallucinations, 03/27/17) Past Medical History A. fib, asthma, arthritis, GERD Past Surgical History Umbilical hernia repair, inguinal Garcia repair, pacemaker placement, bladder resection Reported Medications Reported Meds & Active Scripts Active Reported Proscar (Finasteride) 5 Mg Tab 5 Mg PO DAILY Flomax (Tamsulosin HCl) 0.4 Mg Cap 0.4 Mg PO DAILY Coumadin (Warfarin Sodium) 2.5 Mg Tab 2.5 Mg PO DAILY pt takes 2.5 mg daily except 5 mg once per week Zocor (Simvastatin) 40 Mg Tab 20 Mg PO HS Singulair (Montelukast Sodium) 5 Mg Chew 5 Mg CHEW HS Nexium (Esomeprazole) 40 Mg Cap 40 Mg PO DAILY Advair Diskus 250/50 (Salmeterol Xinafoate/Fluticasone) 250 Mcg/50 Mcg Inhp 1 Puff INH BID Multivitamin (Multivitamins) 1 Tab Tab Proventil Mdi (Albuterol Sulfate) 17 Gm Aero 2 Puff INH Q4-6HPRN Active Ordered Medications Current Medications Medications (Trade) Dose Ordered Sig/Jose Antonio Route Start Time Stop Time Status Last Admin (NS Flush) 2 ml UNSCH PRN IVF 03/27/17 22:15 (NS Flush) 2 ml UNSCH PRN IV FLUSH 03/28/17 04:30 (NS Flush) 2 ml BID IV FLUSH 03/28/17 09:00 (Tylenol) 500 mg Q4H PRN PO 03/28/17 04:30 03/28/17 06:02 Social History No known coronary artery disease, hypertension, or diabetes. Known hyperlipidemia. Former smoker, quit 50 years ago. Endorses daily alcohol of 3-4 ounces daily. Denies any illegal drug use. Ambulates with a walker. Lives independently. Past Cardiac Testing 2010 SPECT (Dr. Galvez office)-fixed defect, normal LVH. Dr. Galvez also provided information patient has mild aortic stenosis and aortic insufficiency. Cardiac catheterization (Dr. Galicia)-Conclusions: 1. Angiographically minimal one vessel CAD in the right dominant system with systolic kinking of the mid to distal left anterior descending, no definite luminal obstruction however. 2. Normal LVSF, EF 55% with left ventricular end-diastolic pressure equal to 10. Physical Exam Vital Signs Vital Signs Date Time Temp Pulse Resp B/P (MAP) Pulse Ox O2 Delivery O2 Flow Rate FiO2 03/28/17 07:23 98.3 75 16 113/61 (78) 97 03/28/17 05:44 03/28/17 05:00 69 18 119/66 (83) 98 Nasal Cannula 2.00 03/28/17 04:39 98 Nasal Cannula 2.00 03/28/17 01:00 68 18 142/71 (94) 99 Room Air 03/27/17 22:27 77 20 145/76 (99) 99 Nasal Cannula 2.00 139/74 (95) 03/27/17 22:25 99 Nasal Cannula 2.00 03/27/17 22:08 97.7 71 20 159/76 (103) 100 Physical Exam GENERAL: Alert WN, WD, NAD, pleasant, elderly, male HEAD: NC, AT NECK: Supple, no masses, trachea midline CV: RRR, 3/6 systolic murmur, no rub, no gallop, no JVD, S1-S2 no S3-S4. RESP: Clear lungs throughout bilateral, no crackles, wheeze, rhonchi, symmetrical chest rise, nonlabored, able to speak in full sentences ABD: Soft, NT, ND, no masses, positive bowel tones EXT: Pulses +24, no dependent edema MS: Normal tone 4 extremities, nontender, no obvious deformities, full range of motion NEURO: CN II through CN XII grossly intact, motor strength 5/5 PSYCH: A+O 3, pleasant affect, appropriate speech, appropriate mood and affect , insight and judgment SKIN: Normal turgor, normal texture Laboratory Laboratory Tests Test 03/27/17 22:10 03/28/17 04:45 White Blood Count 6.1 Red Blood Count 3.14 Hemoglobin 10.6 Hematocrit 29.8 Mean Corpuscular Volume 94.7 Mean Corpuscular Hemoglobin 33.7 Mean Corpuscular Hemoglobin Concent 35.6 Red Cell Distribution Width 14.9 Platelet Count 211 Mean Platelet Volume 8.7 Neutrophils (%) (Auto) 56.7 Lymphocytes (%) (Auto) 30.1 Monocytes (%) (Auto) 9.9 Eosinophils (%) (Auto) 2.1 Basophils (%) (Auto) 1.2 Neutrophils # (Auto) 3.5 Lymphocytes # (Auto) 1.8 Monocytes # (Auto) 0.6 Eosinophils # (Auto) 0.1 Basophils # (Auto) 0.1 CBC Comment DIFF FINAL Differential Comment Prothrombin Time 17.9 Prothromb Time International Ratio 1.6 Activated Partial Thromboplast Time 26.1 D-Dimer Quantitative (PE/DVT) 3.01 Blood Urea Nitrogen 33 Creatinine 1.34 Random Glucose 93 Calcium Level 9.4 Magnesium Level 1.9 Sodium Level 138 Potassium Level 3.7 Chloride Level 106 Carbon Dioxide Level 21.4 Anion Gap 11 Estimat Glomerular Filtration Rate 50 Total Creatine Kinase 236 172 Creatine Kinase MB 9.7 7.7 Troponin I 0.02 0.02 B-Type Natriuretic Peptide 145 Result Diagram: 03/27/170 03/27/172209 Imaging Last Impressions CT Angiography 03/27/17 2346 Signed Impressions: Service Date/Time: Tuesday, March 28, 2017 03:10 - CONCLUSION: 1. No evidence for pulmonary embolism. 2. Minimal bibasilar patchy infiltrates. 3. Cardiomegaly minimal coronary artery calcifications. Per Vivar MD Chest X-Ray 03/27/172207 Signed Impressions: Service Date/Time: Monday, March 27, 2017 22:12 - CONCLUSION: No acute disease. Raymond Uriostegui MD Hip and Pelvis X-Ray 03/27/17 0000 Signed Impressions: Service Date/Time: Monday, March 27, 2017 22:40 - CONCLUSION: 1. Mild degenerative changes of the right hip without fracture. Per Vivar MD Course EKG Atrial paced Caprini VTE Risk Assessment Caprini VTE Risk Assessment: Mod/High Risk (score >= 2) Caprini Risk Assessment Model Point Value = 1 Point Value = 2 Point Value = 3 Point Value = 5 Age 41-60 Minor surgery BMI > 25 kg/m2 Swollen legs Varicose veins or History of unexplained or recurrent spontaneous Oral contraceptives or hormone replacement Sepsis (< 1 month) Serious lung disease, including pneumonia (< 1 month) Abnormal pulmonary function Acute myocardial infarction Congestive heart failure (< 1 month) History of inflammatory bowel disease Medical patient at bed rest Age 61-74 Arthroscopic surgery Major open surgery (> 45 min) Laparoscopic surgery (> 45 min) Malignancy Confined to bed (> 72 hours) Immobilizing plaster cast Central venous access Age >= 75 History of VTE Family history of VTE Factor V Leiden Prothrombin [id number] Lupus anticoagulant Anticardiolipin antibodies Elevated serum homocysteine Heparin-induced thrombocytopenia Other congenital or acquired thrombophilia Stroke (< 1 month) Elective arthroplasty Hip, pelvis, or leg fracture Acute spinal cord injury (< 1 month) Prophylaxis Regimen Total Risk Factor Score Risk Level Prophylaxis Regimen 0-1 Low Early ambulation 2 Moderate Order ONE of the following: *Sequential Compression Device (SCD) *Heparin 5000 units SQ BID 3-4 Higher Order ONE of the following medications: *Heparin 5000 units SQ TID *Enoxaparin/Lovenox 40 mg SQ daily (WT < 150 kg, CrCl > 30 mL/min) *Enoxaparin/Lovenox 30 mg SQ daily (WT < 150 kg, CrCl > 10-29 mL/min) *Enoxaparin/Lovenox 30 mg SQ BID (WT < 150 kg, CrCl > 30 mL/min) AND/OR *Sequential Compression Device (SCD) 5 or more Highest Order ONE of the following medications: *Heparin 5000 units SQ TID (Preferred with Epidurals) *Enoxaparin/Lovenox 40 mg SQ daily (WT < 150 kg, CrCl > 30 mL/min) *Enoxaparin/Lovenox 30 mg SQ daily (WT < 150 kg, CrCl > 10-29 mL/min) *Enoxaparin/Lovenox 30 mg SQ BID (WT < 150 kg, CrCl > 30 mL/min) AND *Sequential Compression Device (SCD) Assessment and Plan Assessment and Plan #1 Chest pain-admitted chest pain center. Rule out with 3 sets of EKGs and cardiac enzymes. Seen and evaluated by Dr. Joan Pope. Will call Dr. Galvez to discuss plan of care, interrogate pacemaker, and most likely proceed with a chemical stress test. Both patient and his son are agreeable to pain of care. Naturally, if further testing unremarkable will discharge later this afternoon. #2 AFib-Subtherapeutic INR-warfarin 5 mg today, interrogate pacemaker, notified of INR of 1.6, patient states he will update PCP who manages his INR level #3 Asthma-continue Singulair, albuterol and Advair Diskus #4 GERD-continue Nexium #5 Hyperlipidemia-continue simvastatin 10:[address] Galvez. Agrees to proceed with interrogation of pacemaker and SPECT nuclear. Kendra Taylor Mar 28, 2017 08:01
[2017-03-28] MEDS ORDERED: NITROGLYCERIN 0.4 MG SL 25 TABS/BTL SL PRN (08:15)
[2017-03-28] MEDS ORDERED: ONDANSETRON HCL 4 MG/2 ML VIAL IV PUSH PRN (08:15)
[2017-03-28] MEDS ORDERED: SODIUM CHLORIDE 0.9% FLUSH 10 ML FLUSH IV FLUSH SCH (09:00)
[2017-03-28] MEDS ORDERED: WARF-23 PO ×2 (10:22→11:59)
[2017-03-28] MEDS ORDERED: WARFARIN SOD 5 MG TAB PO ONE (10:45)
[2017-03-28 11:29] LABS: CREATINE KINASE 152 U/L (39-308)
[2017-03-28 11:51] LABS: CKMB 7.1 NG/ML (0.5-3.6)
[2017-03-28] MEDS ORDERED: LEXA10TA PO (11:59)
[2017-03-28] MEDS ORDERED: FINA5TAB2 PO (11:59)
[2017-03-28] MEDS ORDERED: HYDR12.57 PO (11:59)
[2017-03-28] MEDS ORDERED: ADVA250A INH (11:59)
[2017-03-28] MEDS ORDERED: WARF-18 PO (11:59)
--- NOTE | 2017-03-28 12:54 | EKG ---
Date Performed: 03/27/2017 Time Performed: 21:57:47 PTAGE: 86 years EKG: ELECTRONIC VENTRICULAR PACEMAKER ABNORMAL RHYTHM ECG Since PREVIOUS TRACING , no significant change noted DOCTOR: Joan Pope Interpretating Date/Time 03/28/2017 12:52:41
--- NOTE | 2017-03-28 12:55 | EKG ---
Date Performed: 03/28/2017 Time Performed: 04:48:08 PTAGE: 86 years EKG: ELECTRONIC VENTRICULAR PACEMAKER Since PREVIOUS TRACING , no significant change noted PREVIOUS TRACIN05/15/2008 15.34 DOCTOR: Joan Pope Interpretating Date/Time 03/28/2017 12:54:29
--- NOTE | 2017-03-28 12:56 | EKG ---
Date Performed: 03/28/2017 Time Performed: 07:32:13 PTAGE: 86 years EKG: ELECTRONIC VENTRICULAR PACEMAKER ABNORMAL RHYTHM ECG Since PREVIOUS TRACING , no significant change noted PREVIOUS TRACIN03/28/2017 04.48 DOCTOR: Joan Pope Interpretating Date/Time 03/28/2017 12:56:03
[2017-03-28] MEDS ORDERED: REGADENOSON INJ 0.4 MG/5 ML SYR ONE (13:27)
--- NOTE | 2017-03-28 15:24 | RADRPT ---
EXAM DATE/TIME: 03/28/2017 12:51 [facility] COMPARISON: No previous studies available for comparison. INDICATIONS : Substernal chest pain with dypsnea. Angina. Coronary artery disease. DOSE: 25.9 mCi Tc99m Myoview at stress. 8.3 mCi Tc99m Myoview at rest. 0.4 mg Lexiscan STRESS SYMPTOMS: Short of breath. EJECTION FRACTION: 61% MEDICAL HISTORY : Gastroesophageal reflux disease. Atrial fibrillation and asthma. SURGICAL HISTORY : Pacemaker. Bladder resection. ENCOUNTER: Initial ACUITY: 1 day PAIN SCALE: 2/10 LOCATION: Substernal chest TECHNIQUE: The patient underwent pharmacologic stress with infusion of prescribed dose. Continuous ECG tracing was monitored during stress. Gated SPECT imaging was performed after stress and conventional SPECT i maging was performed at rest. The examination was performed on a SPECT/CT scanner, both attenuation and non-corrected datasets were reviewed. FINDINGS: DISTRIBUTION: The maximum perfused segment at stress is in the lateral wall. There is a prominent amount of subdia phragmatic bowel uptake on the stress images. PERFUSION STUDY: The pattern of perfusion at stress is within normal limits. No evidence of redistribution.. GATED STUDY: There is intact wall motion and thickening without hypokinetic or dyskinetic segments. CONCLUSION: 1. No evidence of stress-induced ischemia. 2. Intact wall motion with a 61% ejection fraction. RISK CATEGORY: Low (<1% Annual Mortality Rate) Mayito Tellez MD on March 28, 2017 at 15:21 Board Certified Radiologist. This report was verified electronically.
--- NOTE | 2017-03-28 15:45 | HHI.DCPOC ---
Discharge Care Plan Diagnosis: (1) Atypical chest pain (2) Subtherapeutic international normalized ratio (INR) (3) Fall Goals to Promote Your Health * To prevent worsening of your condition and complications * To maintain your health at the optimal level Directions to Meet Your Goals Take your medications as prescribed Follow your dietary instruction Follow activity as directed Keep your appointments as scheduled Take your immunizations and boosters as scheduled If your symptoms worsen call your PCP, if no PCP go to Urgent Care Center or Emergency Room Smoking is Dangerous to Your Health. Avoid second hand smoke Call the 24-hour hour crisis hotline for domestic abuse at Kendra Taylor Mar 28, 2017 15:45
--- NOTE | 2017-03-29 06:36 | TR ---
Date Performed: 03/28/2017 Time Performed: 13:39:23 DOCTOR: Joan Pope DRUG LIST: CLINICAL HISTORY: REASON FOR TEST: Angina REASON FOR ENDING: OBSERVATION: CONCLUSION: Lexiscan stress test was performed under standard four minute protocol. Radionucl[place] e was injected one minute prior to ending the test. No electrocardiographic abormalities were present to suggest ischemia. Nuclear imaging and interpretation are pending. COMMENTS:
== END 2017-03-28 16:33 | disposition home or self-care (01) ==
LOC: NEPE 21:51 → NEDA 03-28 03:33 → NEPHCDU 03-28 05:33
PROVIDERS: ADMIT Internal Medicine Cardiovascular Disease; ATTEND Internal Medicine Cardiovascular Disease
DX: R07.89 Other chest pain (principal); I48.91 Unspecified atrial fibrillation; I35.2 Nonrheumatic aortic (valve) stenosis with insufficiency; E78.5 Hyperlipidemia, unspecified; K21.9 Gastro-esophageal reflux disease without esophagitis; J45.909 Unspecified asthma, uncomplicated; F41.9 Anxiety disorder, unspecified; Z79.01 Long term (current) use of anticoagulants; Z95.0 Presence of cardiac pacemaker; Z88.6 Allergy status to analgesic agent; Z87.891 Personal history of nicotine dependence; W19.XXXA Unspecified fall, initial encounter
CPT/HCPCS: 71010; 71275; 73502; 76937; 78452; 80048; 82550; 82552; 83735; 83880; 84484; 85025; 85379; 85610; 85730; 93005; 93017; 96374; 96375; 99285; A9502; G0378; J2060; J2405; J2785; J7040; Q9967

== ENCOUNTER 2017-08-01 09:59 | Emergency (ER) | payer MEDICARE, OTHER ==
[~2017-08-01] VITALS: Ht 182.9 cm; Wt 80.0 kg
[~2017-08-01 09:59] MED LIST changes: -ALBU17I INH; +BUTA1CAP PO; +CHOL1000 PO; +FINA5TAB2 PO; +HYDR12.57 PO; +LEXA10TA PO; -MONT5CHW2 CHEW; -NEXI40CA PO; -PROS5TAB2 PO; -TAB-TAB; -TAMS0.4C67 PO; +WARF-18 PO; +WARF-23 PO; -WARF2.5 PO; -ZOCO40TA PO
[2017-08-01 10:18] VITALS: BP 110/59; PULSE 65; RESP 20; O2SAT 100
[2017-08-01 10:32] VITALS: BP 135/62; PULSE 65; RESP 18; O2SAT 100
[2017-08-01] MEDS ORDERED: SODIUM CHLOR 0.9% 1000 ML INJ 1,000 ML IV SCH (10:45)
[2017-08-01 10:54] VITALS: RESP 18; O2SAT 99
--- NOTE | 2017-08-01 10:56 | PD ---
HPI Chief Complaint: Chest Pain Time Seen by Provider: 10:33 Travel History International Travel<30 days: No Contact w/Intl Traveler<30days: No Traveled to known affect area: No History of Present Illness HPI 87-year-old male complaint of chest pain, shortness of breath, generalized malaise and weakness. Patient states that he was admitted a month ago with generalized malaise and weakness and headache. The workup was negative. Patient states that the weakness is worse this morning. Patient states that he fell yesterday and has abrasion to the right knee. Patient denies any other injury. Patient states that he has mild pain to the anterior aspect of the right knee. Patient denies any headache. Patient states that the chest pain is substernal and left-sided chest pain aching pain without radiation. Patient denies any palpitation. Patient denies any nausea vomiting diaphoresis. Patient denies any fever chills cough and congestion. Patient denies abdominal pain. Patient denies any dysuria frequency. Patient has severe chronic back pain. Patient is going to pain clinic. Patient has history of atrial fibrillation and on Coumadin. Patient also has history of COPD, hypertension and hyperlipidemia. Patient had pacemaker placement. PFSH Past Medical History Hx Anticoagulant Therapy: Yes (Coumadin) Arthritis: Yes Asthma: Yes Atrial Fibrillation: Yes (PACEMAKER, PLACED FOR THIS) Autoimmune Disease: No Blood Disorders: Yes (COUMADIN) Depression: Yes Heart Rhythm Problems: Yes (pacemaker, coumadin for a-fib) Cancer: Yes (skin removed surgically ) Cardiac Catheterization: Yes Cardiovascular Problems: Yes High Cholesterol: Yes Chemotherapy: No Chest Pain: Yes Congestive Heart Failure: No COPD: Yes Diabetes: No Diminished Hearing: Yes (hearing aids) Endocrine: No Gastrointestinal Disorders: Yes (GERD) GERD: Yes Glaucoma: No Genitourinary: Yes (BLADDER RESECTION ) Hepatitis: No Hiatal Hernia: Yes Heparin Induced Thrombocytopen: No Hypertension: No Immune Disorder: No Inguinal Hernia: Yes Implanted Vascular Access Dvce: Yes Kidney Stones: No Medical other: Yes (enlarged prostate arthritis) Musculoskeletal: Yes (weakness) Neurologic: No Psychiatric: No Reproductive: No Respiratory: Yes Immunizations Current: Yes Myocardial Infarction: No Radiation Therapy: No Renal Failure: No Sickle Cell Disease: No Sleep Apnea: No Thyroid Disease: No Ulcer: No ?: Not Past Surgical History Abdominal Surgery: Yes (umbilical hernia repair inquinal hernia repair) AICD: No Appendectomy: No Arteriovenous Shunt: No Body Medical Devices: pacemaker medtronic Cardiac Surgery: Yes (pacemaker) Cholecystectomy: No Coronary Artery Bypass Graft: No Ear Surgery: No Endocrine Surgery: No Eye Surgery: No Genitourinary Surgery: Yes (Bladder surgery ) Gynecologic Surgery: No Insulin Pump: No Joint Replacement: No Neurologic Surgery: No Pacemaker: Yes Thoracic Surgery: Yes (pacemaker ) Other Surgery: Yes (Inguinal Hernia, cholecys, bladder reconstruction) Social History Alcohol Use: Yes (3-4 glasses per day) Tobacco Use: No Substance Use: No Allergies-Medications (Allergen,Severity, Reaction): Coded Allergies: Sulfa (Sulfonamide Antibiotics) (Verified Allergy, Severe, RASH, 03/27/17) aspirin (Verified Adverse Reaction, Severe, STIOMACH PAIN, 03/27/17) morphine (Verified Adverse Reaction, Severe, Hallucinations, 03/27/17) Reported Meds & Prescriptions Reported Meds & Active Scripts Active Gnp Vitamin D3 Extra Stre (Cholecalciferol) 1,000 Unit Tab 1,000 Units PO DAILY Reported Finasteride 5 Mg Tab 5 Mg PO DAILY Do not crush. Advair Diskus Inh (Fluticasone-Salmeterol Inh) 250-50 Mcg/Blist Aer 1 Puff INH BID Rinse mouth after use. Hydrochlorothiazide 12.5 Mg Cap 12.5 Mg PO DAILY Lexapro (Escitalopram Oxalate) 10 Mg Tab 10 Mg PO DAILY Warfarin 5 Mg Tab 5 Mg PO TUFR Warfarin 2.5 Mg Tab 2.5 Mg PO MOWETHSASU Review of Systems General / Constitutional: No: Fever Eyes: No: Visual changes HENT: No: Headaches Cardiovascular: Positive: Chest Pain or Discomfort Respiratory: Positive: Shortness of Breath Gastrointestinal: No: Abdominal Pain Genitourinary: No: Dysuria Musculoskeletal: No: Pain Skin: No Rash Neurologic: No: Weakness Psychiatric: No: Depression Endocrine: No: Polydipsia Hematologic/Lymphatic: No: Easy Bruising Physical Exam Narrative GENERAL: Well-nourished, well-developed patient. SKIN: Focused skin assessment warm/dry. HEAD: Normocephalic. EYES: No scleral icterus. No injection or drainage. NECK: Supple, trachea midline. No JVD or lymphadenopathy. CARDIOVASCULAR: Regular rate and rhythm without murmurs, gallops, or rubs. RESPIRATORY: Breath sounds equal bilaterally. No accessory muscle use. GASTROINTESTINAL: Abdomen soft, non-tender, nondistended. MUSCULOSKELETAL: No cyanosis, or edema. Patient has skin abrasion prepatellar area of the right knee. Full range of motion of the right knee. Knee joint stable. No effusion noted. BACK: Nontender without obvious deformity. No CVA tenderness. Neurologic exam: Patient is awake and alert oriented 3. Patient moves all extremities well. No obvious focal neurological deficit. Data Data Last Documented VS Vital Signs Date Time Temp Pulse Resp B/P (MAP) Pulse Ox O2 Delivery O2 Flow Rate FiO2 08/01/17 10:54 18 99 Nasal Cannula 2.00 08/01/17 10:34 65 Orders Orders Electrocardiogram (08/01/17 10:42) Complete Blood Count With Diff (08/01/17 10:42) Comprehensive Metabolic Panel (08/01/17 10:42) Creatine Kinase (Cpk) (08/01/17 10:42) Troponin I (08/01/17 10:42) Prothrombin Time / Inr (Pt) (08/01/17 10:42) Act Partial Throm Time (Ptt) (08/01/17 10:42) Urinalysis - C+S If Indicated (08/01/17 10:42) Thyroid Stimulating Hormone (08/01/17 10:42) Chest, Single Ap (08/01/17 10:42) Iv Access Insert/Monitor (08/01/17 10:42) Ecg Monitoring (08/01/17 10:42) Oximetry (08/01/17 10:42) Sodium Chlor 0.9% 1000 Ml Inj (Ns 1000 M (08/01/17 10:45) Ed Discharge Order (08/01/17 13:00) Labs Laboratory Tests Test 08/01/17 10:12 08/01/17 10:52 Urine Color YELLOW Urine Turbidity CLEAR Urine pH 6.5 Urine Specific [place] 1.013 Urine Protein NEG mg/dL Urine Glucose (UA) NEG mg/dL Urine Ketones NEG mg/dL Urine Occult Blood NEG Urine Nitrite NEG Urine Bilirubin NEG Urine Urobilinogen 2.0 MG/DL Urine Leukocyte Esterase NEG Urine RBC LESS THAN 1 /hpf Urine WBC LESS THAN 1 /hpf Urine Mucus FEW /lpf Microscopic Urinalysis Comment CULT NOT INDICATED White Blood Count 7.7 TH/MM3 Red Blood Count 3.15 MIL/MM3 Hemoglobin 10.8 GM/DL Hematocrit 29.6 % Mean Corpuscular Volume 94.1 FL Mean Corpuscular Hemoglobin 34.3 PG Mean Corpuscular Hemoglobin Concent 36.4 % Red Cell Distribution Width 14.8 % Platelet Count 222 TH/MM3 Mean Platelet Volume 8.0 FL Neutrophils (%) (Auto) 80.0 % Lymphocytes (%) (Auto) 8.9 % Monocytes (%) (Auto) 8.7 % Eosinophils (%) (Auto) 1.7 % Basophils (%) (Auto) 0.7 % Neutrophils # (Auto) 6.2 TH/MM3 Lymphocytes # (Auto) 0.7 TH/MM3 Monocytes # (Auto) 0.7 TH/MM3 Eosinophils # (Auto) 0.1 TH/MM3 Basophils # (Auto) 0.1 TH/MM3 CBC Comment AUTO DIFF Differential Comment AUTO DIFF CONFIRMED Prothrombin Time 13.0 SEC Prothromb Time International Ratio 1.3 RATIO Activated Partial Thromboplast Time 29.9 SEC Blood Urea Nitrogen 24 MG/DL Creatinine 1.14 MG/DL Random Glucose 129 MG/DL Total Protein 6.8 GM/DL Albumin 3.6 GM/DL Calcium Level 9.4 MG/DL Alkaline Phosphatase 73 U/L Aspartate Amino Transf (AST/SGOT) 27 U/L Alanine Aminotransferase (ALT/SGPT) 30 U/L Total Bilirubin 1.3 MG/DL Sodium Level 133 MEQ/L Potassium Level 3.7 MEQ/L Chloride Level 98 MEQ/L Carbon Dioxide Level 26.6 MEQ/L Anion Gap 8 MEQ/L Estimat Glomerular Filtration Rate 61 ML/MIN Total Creatine Kinase 113 U/L Troponin I LESS THAN 0.02 NG/ML Thyroid Stimulating Hormone 3rd Gen 1.700 uIU/ML [facility] Medical Decision Making Medical Screen Exam Complete: Yes Emergency Medical Condition: Yes Interpretation(s) 12:33 PM. EKG showed pacer rhythm. CBC hemoglobin 10.8 hematocrit 29.6. 80 neutrophil. Sodium 133. BUN 24. GFR 61. Cardiac enzymes are normal. UA is negative. Differential Diagnosis Differential diagnosis including musculoskeletal, angina, OR, PE, pneumothorax, electrolyte abnormality, dehydration, pneumonia, UTI, sepsis. Narrative Course 87-year-old male with chest pain. Patient also complains of worsening of generalized malaise and weakness. I spoke with milk pickup driver Dr. Zain Casarez. Advised the patient to follow with Dr. Galvez. Return if worse. Diagnosis Primary Impression: CHEST PAIN, UNSPECIFIED Additional Impression: Weakness Patient Instructions: General Instructions Additional Instructions: Continue with medications. Follow-up with personal physician and milk pickup driver. Return if worse. Med/Other Pt SpecificInfo: No Change to Meds Disposition: 01 DISCHARGE HOME Condition: Stable Michele Benton MD Aug 01, 2017 10:56
[2017-08-01 11:08] LABS: AUTOMATED NEUTROPHIL # 6.2 TH/MM3 (1.8-7.7); BASOPHIL # 0.1 TH/MM3 (0-0.2); BASOPHIL % 0.7 % (0.0-2.0); EOSINOPHIL # 0.1 TH/MM3 (0-0.4); EOSINOPHIL % 1.7 % (0.0-4.0); HEMATOCRIT 29.6 % (39.0-51.0); HEMOGLOBIN 10.8 GM/DL (13.0-17.0); LYMPH % 8.9 % (9.0-44.0); LYMPHOCYTE # 0.7 TH/MM3 (1.0-4.8); MEAN CELL VOLUME 94.1 FL (80.0-100.0); MEAN CORPUSCULAR HEMOGLOBIN 34.3 PG (27.0-34.0); MONO % 8.7 % (0.0-8.0); MONOCYTE # 0.7 TH/MM3 (0-0.9); PLATELET COUNT 222 TH/MM3 (150-450); RED BLOOD COUNT 3.15 MIL/MM3 (4.50-5.90); RED CELL DISTRIBUTION WIDTH 14.8 % (11.6-17.2); WHITE BLOOD COUNT 7.7 TH/MM3 (4.0-11.0)
[2017-08-01 11:09] LABS: MEAN CORPUSCULAR HGB CONC 36.4 % (32.0-36.0)
[2017-08-01 11:13] LABS: BILIRUBIN, URINE NEG (NEG); BLOOD, URINE NEG (NEG); GLUCOSE,URINE NEG (NEG); KETONE, URINE NEG (NEG); MUCUS URINE FEW /lpf (OCC); NITRITE,URINE NEG (NEG); PH, URINE 6.5 (5.0-8.5); URINE COLOR YELLOW (YELLW/STRAW); URINE LEUKOCYTE ESTERASE NEG (NEG)
[2017-08-01 11:17] LABS: INTERNATIONAL NORMALIZED RATIO 1.3 RATIO
[2017-08-01 11:34] LABS: ALBUMIN 3.6 GM/DL (3.4-5.0); ALT (GPT) 30 U/L (12-78); AST (GOT) 27 U/L (15-37); BICARBONATE 26.6 MEQ/L (21.0-32.0); BLOOD UREA NITROGEN 24 MG/DL (7-18); CALCIUM 9.4 MG/DL (8.5-10.1); CHLORIDE 98 MEQ/L (98-107); CREATININE 1.14 MG/DL (0.60-1.30); GLOMERULAR FILTRATION RATE 61 ML/MIN (>89); GLUCOSE,RANDOM 129 MG/DL (74-106); SODIUM (NA) 133 MEQ/L (136-145)
[2017-08-01 11:44] LABS: ALKALINE PHOSPHATASE 73 U/L (45-117); TOTAL BILIRUBIN ADULT 1.3 MG/DL (0.2-1.0); TOTAL PROTEIN 6.8 GM/DL (6.4-8.2); TROPONIN I LESS THAN 0.02 NG/ML (0.02-0.05)
--- NOTE | 2017-08-01 12:11 | RADRPT ---
EXAM DATE/TIME: 08/01/2017 11:01 [facility] COMPARISON: CHEST SINGLE AP, July 05, 2017, 20:58. INDICATIONS : Chest pain, short of breath, general weakness for 4 days MEDICAL HISTORY : Chronic obstructive pulmonary disease. A-fib, asthma SURGICAL HISTORY : Pacemaker. ENCOUNTER: Initial ACUITY: 4 - 6 days PAIN SCORE: 3/10 LOCATION: Bilateral chest FINDINGS: Heart is mildly enlarged. Single lead pacemaker remains in good position. There is mild interstitial vascular prominence without evidence of consolidating airspace disease or pulmonary edema. There are no pleural effusions. CONCLUSION: Cardiomegaly with mild interstitial vascular prominence but no other findings of significant congesti on. No evidence of consolidating airspace disease. Pacemaker Kenny Mares MD on August 01, 2017 at 12:08 Board Certified Radiologist. This report was verified electronically.
--- NOTE | 2017-08-01 21:52 | EKG ---
Date Performed: 08/01/2017 Time Performed: 10:23:54 PTAGE: 87 years EKG: ELECTRONIC VENTRICULAR PACEMAKER ABNORMAL RHYTHM ECG PREVIOUS TRACING : 07/06/2017 04.19 Since the prior tracing, there has been no significant gibbons cherie DOCTOR: Afsaneh Almazan Interpretating Date/Time 08/01/2017 21:50:00
== END 2017-08-01 13:45 | disposition home or self-care (01) ==
LOC: NEPC 09:59
DX: R07.9 Chest pain, unspecified (principal); R53.1 Weakness; R53.81 Other malaise; R06.02 Shortness of breath; R51 Headache; M54.9 Dorsalgia, unspecified; G89.29 Other chronic pain; I48.91 Unspecified atrial fibrillation; R94.31 Abnormal electrocardiogram [ECG] [EKG]
CPT/HCPCS: 71045; 80053; 81001; 82550; 84443; 84484; 85025; 85610; 85730; 93005; 99284; J7030

== ENCOUNTER 2017-08-10 08:03 | Day surgery (SDC) | payer MEDICARE, OTHER ==
[~2017-08-10] VITALS: Ht 188 cm; Wt 77.5 kg
[~2017-08-10 08:03] MED LIST changes: -BUTA1CAP PO
[2017-08-10 09:07] LABS: AUTOMATED NEUTROPHIL # 4.2 TH/MM3 (1.8-7.7); BASOPHIL % 0.8 % (0.0-2.0); EOSINOPHIL # 0.1 TH/MM3 (0-0.4); EOSINOPHIL % 1.2 % (0.0-4.0); HEMOGLOBIN 10.6 GM/DL (13.0-17.0); LYMPH % 12.8 % (9.0-44.0); LYMPHOCYTE # 0.7 TH/MM3 (1.0-4.8); MEAN CELL VOLUME 93.4 FL (80.0-100.0); MEAN CORPUSCULAR HEMOGLOBIN 32.9 PG (27.0-34.0); MEAN CORPUSCULAR HGB CONC 35.2 % (32.0-36.0); MEAN PLATELET VOLUME 7.4 FL (7.0-11.0); MONO % 10.6 % (0.0-8.0); MONOCYTE # 0.6 TH/MM3 (0-0.9); NEUT % 74.6 % (16.0-70.0); PLATELET COUNT 232 TH/MM3 (150-450); RED BLOOD COUNT 3.21 MIL/MM3 (4.50-5.90); RED CELL DISTRIBUTION WIDTH 14.6 % (11.6-17.2); WHITE BLOOD COUNT 5.7 TH/MM3 (4.0-11.0)
[2017-08-10 09:16] LABS: INTERNATIONAL NORMALIZED RATIO 1.7 RATIO; PROTHROMBIN TIME - PATIENT 17.4 SEC (9.8-11.6)
[2017-08-10 09:28] LABS: BICARBONATE 26.4 MEQ/L (21.0-32.0); CREATININE 1.1 MG/DL (0.60-1.30)
[2017-08-10] MEDS ORDERED: NS 1000 ML IV SCH (09:45)
[2017-08-10] MEDS ORDERED: CHLORHEXIDINE GLUCONATE 2 % 1 PACK (2 CLOTHS) TOPICAL SCH (09:45)
[2017-08-10] MEDS ORDERED: POVIDONE IODINE 5% (ANTISEPSIS KIT) 4 APPLICATIONS EACH NARE SCH (09:45)
[2017-08-10] MEDS ORDERED: LORazepam 1 MG TAB SL SCH (09:45)
[2017-08-10] MEDS ORDERED: MUPIROCIN 2% OINT 1 APPLIC/GM SYR NASAL SCH (09:45)
[2017-08-10] MEDS ORDERED: ceFAZolin 2 GM PREMIX 50 ML IV SCH (09:45)
[2017-08-10 09:55] VITALS: BP 147/75; PULSE 65; RESP 16; TEMP 98.2; O2SAT 98
[2017-08-10] MEDS ORDERED: SIMV10TA PO (10:03)
[2017-08-10] MEDS ORDERED: FERR28TA PO (10:03)
[2017-08-10] MEDS ORDERED: GLYCOPYRROLATE 1 MG/5 ML SYRINGE IV PUSH ONE (12:00)
[2017-08-10] MEDS ORDERED: PROPOFOL 200 MG/20 ML AMP IV ONE (12:00)
--- NOTE | 2017-08-10 13:40 | EKG ---
Date Performed: 08/10/2017 Time Performed: 09:15:18 PTAGE: 87 years EKG: Ventricular pacing. Pacemaker rhythm - no further analysis Abnormal ECG PREVIOUS TRACING : 08/01/2017 10.23 No significant change from previous tracing noted. DOCTOR: Tommy Bernal Interpretating Date/Time 08/10/2017 13:39:15
[2017-08-10] MEDS ORDERED: VANCOMYCIN 500 MG VIAL ONE (14:14)
[2017-08-10] MEDS ORDERED: LIDOCAINE HCL 2% 50 ML VIAL ONE (14:15)
[2017-08-10] MEDS ORDERED: FAMOTIDINE 20 MG/2 ML VIAL ONE (14:27)
[2017-08-10] MEDS ORDERED: KETAMINE HCL 500 MG/10 ML VIAL ONE (14:47)
[2017-08-10] MEDS ORDERED: HYDR-3288 PO (15:23)
[2017-08-10] MEDS ORDERED: CEPH-460 PO (15:23)
--- NOTE | 2017-08-10 15:24 | CATHPROC ---
[employer] HIS Report Study Information Study Number Admission Scheduled Start Study Start [id number] Aug 10 2017 8:03AM 08/10/2017 Aug 10 2017 2:24PM [facility] Cardiac Pacer/ICD Admit Source Facility Department Other [facility] - Client Partner Physician and Clinical Staff Initial Zahra Escudero Top Closer Tomeka Vega,CORPORATE TUTOR TECH2 Other Anesthesia, EMBLEM FUSER TENDER Recorder Juan Carlos ROBERTS, Nikki Eisenberg RCIS Equipment Time Veneer Manufacturer Description Size Mfg Part Number Used/Scraped DERMABOND, ADHESIVE SKIN [id number] 14:42 CORDIS/PACER * Used GLUE MINI *[id number] 14:42 MEDLINE INDUSTRIES SUTURE, STRIP PLUS 1/2" * Used *[id number] 14:42 MEDLINE PACER JOYCE, LIMB * 2530 *[id number] Used [id number] 14:42 MEDLINE PACER PACK, PACER CUSTOM * Used *[id number] SUTURE, 0 ETHIBOND [CT1] (CX21D), 8pk SUTURE, 2-0 VICRYL [CT1] ([id number]) SUTURE, 2-0 VICRYL [CT1] ([id number]) [id number] 14:42 [employer],WARM AIR CCL * Used *[id number] [facility] PAD, ELECTROSURGICAL 14:42 * [id number] *[id number] Used SURGICAL GROUNDING ORANGE [id number] 15:03 VITATRON MEDTRONIC PACEMAKER, ADAPTA ADSR01 VVIR Used *[id number] 14:42 [employer] PONCE. / * Used *[id number] History: Allergies Allergy Reaction Sulfa ASA Morphine Medication Medication Total Dose (Bolus/Oral) Medication Total Dosage/Unit 2% XYLOCAINE 50 mL Medications (Bolus/Oral) Medication Time Given Dosage/Unit Administered By Reason 2% XYLOCAINE 08/10/2017 2:58:11 PM 50 mL Zahra Bonilla 50 mL 2% XYLOCAINE given by Zahra Bonilla in Left shoulder via Subcutaneous. Medication (Drip) Medication Time Given Dosage/Unit Concentration/Unit Diluent (ml) Solution ANCEF 08/10/2017 2:38:33 PM 2 g 2 g ANCEF given in lab by Anesthesia, EMBLEM FUSER TENDER via Peripheral IV. Ordered by Zahra Bonilla. VANCOMYCIN DRIP 08/10/2017 2:38:10 PM 1 g 1 g VANCOMYCIN DRIP given in lab by Anesthesia, EMBLEM FUSER TENDER via Peripheral IV. Ordered by Zahra Bonilla. Chronological Log Time Study Chronological Log 14:25:10 Patient Name, D.O.B, / Armband Verified By R.N. 14:25:51 Patient arrived via Bed. 14:26:10 Consent signed by the physician and the patient and verified by the Client Partner staff. 14:26:21 History and physical on the chart or being dictated. 14:27:59 Patient has been NPO for More than 6Hrs. 14:30:30 2% CHLORHEXIDINE GLUCONATE WASH AND NASAL SWIPE DONE PRIOR TO PROCEDURE. 14:30:37 Candelario Prominences Protected 14:30:49 Anesthesia at bedside. Assumes care of patient. 14:30:54 MD arrived. 14:35:20 Patient Warmer Placed on the Table. 14:35:28 Disposable Defibrillator Pads Placed On Patient. 14:38:10 1 g VANCOMYCIN DRIP given in lab by Anesthesia, EMBLEM FUSER TENDER via Peripheral IV. Ordered by Zahra Bonilla. 14:38:33 2 g ANCEF given in lab by Anesthesia, EMBLEM FUSER TENDER via Peripheral IV. Ordered by Zahra Bonilla. 14:41:16 Skin Breakdown-Large scab noted left knee 14:42:51 A # 22 IV was noted in the Hand (right). Grade = 0 14:43:38 A # 20 IV was noted in the Forearm (right). Grade = 0 14:44:03 Table restraints applied according to hospital policy 14:44:07 Left Upper Chest Prepped Times Two. First Sponge And Instrument Count Done 14:50:43 Hypo's: 1 hypo's, Sponges: 20sponges, Bovie/scratch:1 bovie/scratch1 Sutures: 2, Blades: 1, Instruments: 26 Time Out. Correct patient, procedure, procedure equipment, site and side verified with physici an present. Time 14:57:52 concurred by MD, individual staff and EMBLEM FUSER TENDER. Time Out #2 - Consents verified, patient in correct position, all results are labled and displ ayed, safety precautions 14:58:04 taken, antibiotics administered. Time out concurred by MD, individual staff and EMBLEM FUSER TENDER in proced ure 14:58:07 Case Start 14:58:11 50 mL 2% XYLOCAINE given by Zahra Bonilla in Left shoulder via Subcutaneous. 14:58:30 Surgical Incision Made.. pocket opened 14:59:15 A device was explanted. 15:00:39 Pocket flushed with antibiotic solution 15:02:39 A PACEMAKER, ADAPTA ADSR01 VVIR was connected and placed in the pocket. 15:03:49 The pocket was closed. Second Sponge And Instrument Count Done by Zahra Bonilla. 15:03:51 Hypo's: 1hypo's, Sponges:20 sponges, Bovie/scratch:1 bovie/scratch1 Sutures:2, Blades: 1, 15:03:58 Implant Procedure was performed. 15:04:03 A PPM Removal . (Single) 15:04:28 A PPM Implant . (Single) First Sponge And Instrument Count Done by Tomeka Vega, CORPORATE TUTOR TECH2. 15:07:43 Hypo's:1 hypo's, Sponges: 20 sponges, Bovie/scratch:1 bovie/scratch 1 Sutures: 2, Blades: 1, Instruments:26 15:08:19 Case End 15:09:35 Steri-strips and a sterile dressing applied to site. Pressure dressing applied 15:10:26 DOCU called. Spoke to Roberto 15:15:55 No case complications noted. 15:16:01 Bedside Report will be given. 15:16:03 Implantable Device card placed in patient's chart. 15:23:28 Patient moved to [facility] End Study - Contrast Media Used In Study Contrast Total Opened (mL) Total Used (mL) Total Wasted (mL) Unspecified 0 0 0 End Study - Radiation Exposure Fluoro Time (minutes) 0.1 End Study - Sponge/Needle Count Sponge Count Pre Sponge Count Post Needle Count Pre Needle Count Post Procedure Procedure Procedure Procedure 20 20 1 1 End Study - Patient Disposition Complications Transferred To Interventional Outcome No Client Partner Holding successful
[2017-08-10] MEDS ORDERED: ONDANSETRON HCL 4 MG/2 ML VIAL IV PUSH PRN (15:30)
[2017-08-10] MEDS ORDERED: SODIUM CHLORIDE 0.9% FLUSH 10 ML FLUSH IV FLUSH PRN (15:30)
--- NOTE | 2017-08-10 15:36 | MP ---
cc: Zahra Bonilla MD, Craig DO DATE OF OPERATION: 08/10/2017 PROCEDURE PERFORMED: Single chamber permanent pacemaker removal. Single chamber permanent pacemaker replacement. INDICATIONS: Mr. Miller is an 87-year-old gentleman with AV block pacemaker dependent, generator end-of-life referred for generator replacement. The risks, the nature and the benefit of the procedure are clearly stated to him. The risks include pneumothorax, cardiac perforation, stroke, need for open heart surgery and even . The patient understood and agreed to proceed. PROCEDURE: After written informed consent was obtained, the patient was brought to the EP Lab where he was evaluated by anesthesiologist. Once sedation verified, the left infraclavicular area was anesthetized with 2% Xylocaine. Using a #11 blade scalpel, a 2 cm incision was made over the existing generator. Dissection was taken down to the deep fascial layer using Bovie cautery and blunt dissection. Once exposed, the generator was removed from the pocket. Scar tissue was removed around the lead. The pocket was expanded. A pocket revision was performed. Then the lead was disconnected from the generator and connected to the new generator and placed into the pocket. Previous to that, the pocket was copiously irrigated using antibiotic solution. At that point, I did proceed with wound closure. The deep fascial layer was approximated using #2-0 Vicryl suture in a continuous fashion. The subcutaneous layer was approximated using #2-0 Vicryl suture in a continuous fashion. The subcuticular layer was approximated using #2-0 Vicryl suture in a continuous fashion. Dermabond adhesive was applied to the wound followed by a sterile pressure dressing. There was no complication. The patient tolerated the procedure. Blood loss, minimal. 1. Expanded hardware: The explanted permanent pacemaker is a Medtronic model #ADSR03, serial #[id number]. 2. Implanted hardware: The implanted permanent pacemaker is a Medtronic model #ADSR01, serial #[id number]. 3. Threshold: The right ventricular pacing threshold in the bipolar mode was 0.75 volts at 0.4 milliseconds. Lead impedance 345 ohms. R-wave could not be measured, the patient is pacemaker dependent. 4. Setting: The device is set in a VVIR 70 upper rate limit 120 beats per minute. CONCLUSION: Successful permanent pacemaker removal, permanent pacemaker replacement. COMMENT AND RECOMMENDATION: The patient is going to be transferred to the recovery room. He will be monitored and when stable can be discharged home. MD ANNA Ann/SHEKHAR , 03:20 PM , 03:35 PM
[2017-08-10] MEDS ORDERED: SODIUM CHLORIDE 0.9% FLUSH 10 ML FLUSH IV FLUSH SCH (21:00)
--- NOTE | 2017-08-10 23:53 | EKG ---
Date Performed: 08/10/2017 Time Performed: 15:57:30 PTAGE: 87 years EKG: Ventricular pacing. Pacemaker rhythm - no further analysis Abnormal ECG PREVIOUS TRACING : 08/10/2017 09.15 Since the prior tracing, there has been no significant gibbons DOCTOR: Richard Hobbs Interpretating Date/Time 08/10/2017 23:52:40
== END 2017-08-10 17:00 | disposition home or self-care (01) ==
LOC: HDIC 08:03 → HDOC 08:03
PROVIDERS: ATTEND Internal Medicine Interventional Cardiology
DX: Z45.010 Encounter for checking and testing of cardiac pacemaker pulse generator [battery] (principal); I44.30 Unspecified atrioventricular block; R94.31 Abnormal electrocardiogram [ECG] [EKG]; I48.91 Unspecified atrial fibrillation; R06.00 Dyspnea, unspecified; Z79.01 Long term (current) use of anticoagulants; Z01.818 Encounter for other preprocedural examination; Z01.810 Encounter for preprocedural cardiovascular examination
CPT/HCPCS: 00400; 33227; 80048; 85025; 85610; 85730; 86850; 86900; 86901; 93005; C1786; J0690; J3370

== ENCOUNTER 2017-08-14 15:41 | Emergency (ER) | payer MEDICARE, OTHER ==
[~2017-08-14] VITALS: Ht 188 cm; Wt 77.3 kg
[~2017-08-14 15:41] MED LIST changes: +CEPH-460 PO; -CHOL1000 PO; +FERR28TA PO; +HYDR-3288 PO; +SIMV10TA PO; -WARF-23 PO
[2017-08-14 15:55] VITALS: BP 127/59; PULSE 70; RESP 18; TEMP 98.4; O2SAT 99
--- NOTE | 2017-08-14 16:56 | RADRPT ---
EXAM DATE/TIME: 08/14/2017 16:29 [facility] COMPARISON: No previous studies available for comparison. INDICATIONS : Lower back pain after fall today. MEDICAL HISTORY : Chronic obstructive pulmonary disease. Cardiovascular disease. Skin cancer. SURGICAL HISTORY : Pacemaker. Hernia repair. Bladder repair. ENCOUNTER: Initial ACUITY: 1 day PAIN SCORE: 10/10 LOCATION: Bilateral lower back. FINDINGS: Numerous surgical clips overlie the abdomen and pelvis. Nonobstructive bowel gas pattern. There is mo derate disc space narrowing throughout the lumbar spine with disc space narrowing most pronounced at L5-S1, and plate sclerosis and mild multilevel osteophyte formation present. Moderate facet hypertrop hy L5-S1. No compression deformities. Bone density is diminished. CONCLUSION: No acute disease. Steven Jackson MD on August 14, 2017 at 16:52 Board Certified Radiologist. This report was verified electronically.
--- NOTE | 2017-08-14 17:01 | RADRPT ---
EXAM DATE/TIME: 08/14/2017 16:27 [facility] COMPARISON: No previous studies available for comparison. INDICATIONS : Upper back pain after fall. MEDICAL HISTORY : Chronic obstructive pulmonary disease. SURGICAL HISTORY : Pacemaker. Hernia repair. Bladder repair. ENCOUNTER: Initial ACUITY: 1 day PAIN SCORE: 10/10 LOCATION: Upper back. FINDINGS: Bone density is decreased. There is mild disc space narrowing and osteophytosis. No fractures. CONCLUSION: No acute disease. Steven Jackson MD on August 14, 2017 at 16:59 Board Certified Radiologist. This report was verified electronically.
--- NOTE | 2017-08-14 17:02 | RADRPT ---
EXAM DATE/TIME: 08/14/2017 16:31 [facility] COMPARISON: No previous studies available for comparison. INDICATIONS : Right knee pain after fall 2 weeks ago. MEDICAL HISTORY : Chronic obstructive pulmonary disease. Cardiovascular disease. Skin cancer. SURGICAL HISTORY : Pacemaker. Hernia repair. Bladder repair. ENCOUNTER: Initial ACUITY: 2 weeks PAIN SCORE: 6/10 LOCATION: Right knee. FINDINGS: Mild osteoarthritis is noted. No fracture or dislocation. No significant effusion. Bone density is de creased. CONCLUSION: No acute disease. Steven Jackson MD on August 14, 2017 at 17:00 Board Certified Radiologist. This report was verified electronically.
--- NOTE | 2017-08-14 17:15 | RADRPT ---
EXAM DATE/TIME: 08/14/2017 16:59 [facility] COMPARISON: CT BRAIN W/O CONTRAST, July 05, 2017, 21:13. INDICATIONS : Trauma. Fall. RADIATION DOSE: 56.35 CTDIvol (mGy) MEDICAL HISTORY : Cardiovascular disease. Carcinoma, bladder. SURGICAL HISTORY : Pacemaker. Bladder resection ENCOUNTER: Initial ACUITY: 1 day PAIN SCALE: 5/10 LOCATION: cranial TECHNIQUE: Multiple contiguous axial images were obtained of the head. Using automated exposure control and adj ustment of the mA and/or kV according to patient size, radiation dose was kept as low as reasonably a chievable to obtain optimal diagnostic quality images. DICOM format image data is available electro nically for review and comparison. FINDINGS: There is mild atrophy. No hemorrhage, acute infarct, or mass. Ventricles and cisterns are of normal s ize and configuration. No fractures. CONCLUSION: No acute disease. Steven Jackson MD on August 14, 2017 at 17:13 Board Certified Radiologist. This report was verified electronically.
--- NOTE | 2017-08-14 17:19 | RADRPT ---
EXAM DATE/TIME: 08/14/2017 16:18 [facility] COMPARISON: CHEST SINGLE AP, August 01, 2017, 11:01. INDICATIONS : Upper back pain after fall. MEDICAL HISTORY : Chronic obstructive pulmonary disease. Cardiovascular disease. Skin cancer. SURGICAL HISTORY : Pacemaker. Hernia repair. Bladder repair. ENCOUNTER: Initial ACUITY: 1 day PAIN SCORE: 10/10 LOCATION: Bilateral chest FINDINGS: PA and lateral views of the chest demonstrate the lungs to be symmetrically aerated without evidence of mass, infiltrate or effusion. The cardiomediastinal contours are unremarkable. Osseous structure s are intact. Single lead pacer from a left subclavian transvenous approach noted. CONCLUSION: No acute disease. Steven Jackson MD on August 14, 2017 at 17:17 Board Certified Radiologist. This report was verified electronically.
--- NOTE | 2017-08-14 17:34 | RADRPT ---
EXAM DATE/TIME: 08/14/2017 16:59 [place] COMPARISON: CT BRAIN W/O CONTRAST, July 05, 2017, 21:13. INDICATIONS : Trauma. Fall. RADIATION DOSE: 31.78 CTDIvol (mGy) MEDICAL HISTORY : Cardiovascular disease. Carcinoma, bladder. SURGICAL HISTORY : Pacemaker. Bladder resection ENCOUNTER: Initial ACUITY: 1 day PAIN SCALE: 0/10 LOCATION: neck TECHNIQUE: Volumetric scanning of the cervical spine was performed. Multiplanar reconstructions in the sagittal, coronal and oblique axial planes were performed. Using automated exposure control and adjustment o f the mA and/or kV according to patient size, radiation dose was kept as low as reasonably achievable to obtain optimal diagnostic quality images. DICOM format image data is available electronically f or review and comparison. FINDINGS: Thin section axial imaging of the cervical spine was performed. Sagittal and coronal imaging demonstrate adequate alignment of the vertebral bodies. The examination demonstrates degenerative changes in the atlantodens joint and throughout the lower cervical spine. No acute fracture is seen. C1/2: There are moderate degenerative changes in the atlantodens joint. C2/3: There is mild facet arthritis bilaterally. The thecal space and neural foramina are adequate. C3/4: There is a degenerated disc with central and right-sided disc bulge. There is fairly diffuse osteophy tic ridging from the vertebral endplates. There is osteophytic spur and disc projecting into the late ral recess and base of the foramina on the right. There is at least moderate foraminal narrowing on t he right. The foramina on the left is adequate. C4/5: There is a degenerated disc with a small broad-based disc bulge and diffuse osteophytic ridging. Ther e is uncovertebral osteophyte encroaching upon the lateral recess and base of the foramina bilaterall y. There is moderate facet arthritis bilaterally. C5/6: There is a degenerated disc with diffuse osteophytic ridging and a small broad-based disc bulge. This effaces the ventral thecal sac. There is uncovertebral osteophyte encroaching upon the lateral reces s and foramina bilaterally. C6/7: There is a degenerated disc. There is mild facet arthritis bilaterally. The thecal space and foramina are adequate. C7/T1: The thecal space is adequate. The neural foramina are adequate. No significant abnormality is identif ied. CONCLUSION: 1. Degenerative changes in the cervical spine as listed above. 2. No acute cervical spine fracture is identified. Eduardo Jeff MD on August 14, 2017 at 17:29 Board Certified Radiologist. This report was verified electronically.
--- NOTE | 2017-08-14 17:41 | PD ---
HPI Chief Complaint: Fall Time Seen by Provider: 17:30 Travel History International Travel<30 days: No Contact w/Intl Traveler<30days: No Traveled to known affect area: No History of Present Illness HPI 87-year-old male with history of A. fib on Coumadin here for evaluation after a mechanical trip and fall that occurred at around 10:00 AM today. Patient reports that he turned to the side and fell to the ground. He struck his head against the wall. He did not lose consciousness. He is not bleeding from anywhere. He now complains of some neck discomfort and right knee pain. Pain is mild, worse with movements. He also recently had his pacemaker replaced 4 days ago. PFSH Past Medical History Hx Anticoagulant Therapy: Yes (Coumadin) Arthritis: Yes Asthma: Yes Atrial Fibrillation: Yes (PACEMAKER, PLACED FOR THIS) Autoimmune Disease: No Blood Disorders: Yes (COUMADIN) Depression: Yes Heart Rhythm Problems: Yes (pacemaker, coumadin for a-fib) Cancer: Yes (Squamous and Basal) Cardiac Catheterization: Yes Cardiovascular Problems: Yes (, medtronic PM) High Cholesterol: Yes Chemotherapy: No Chest Pain: Yes Congestive Heart Failure: No COPD: Yes Diabetes: No Diminished Hearing: Yes (hearing aids) Endocrine: No Gastrointestinal Disorders: Yes (GERD) GERD: Yes Glaucoma: No Genitourinary: Yes (BLADDER RESECTION ) Hepatitis: No Hiatal Hernia: Yes Heparin Induced Thrombocytopen: No Hypertension: No Immune Disorder: No Inguinal Hernia: Yes Implanted Vascular Access Dvce: Yes Kidney Stones: No Medical other: Yes (enlarged prostate arthritis) Musculoskeletal: Yes (weakness) Neurologic: No Psychiatric: No Reproductive: No Respiratory: Yes (COPD) Immunizations Current: Yes Myocardial Infarction: No Radiation Therapy: No Renal Failure: No Sickle Cell Disease: No Sleep Apnea: No Thyroid Disease: No Ulcer: No Past Surgical History Abdominal Surgery: Yes (umbilical hernia repair inquinal hernia repair) AICD: No Appendectomy: No Arteriovenous Shunt: No Body Medical Devices: pacemaker medtronic Cardiac Surgery: Yes (pacemaker) Cholecystectomy: Yes Coronary Artery Bypass Graft: No Ear Surgery: No Endocrine Surgery: No Eye Surgery: No Genitourinary Surgery: Yes (Bladder surgery ) Gynecologic Surgery: No Insulin Pump: No Joint Replacement: No Neurologic Surgery: No Pacemaker: Yes Thoracic Surgery: Yes (pacemaker ) Other Surgery: Yes (Inguinal Hernia, cholecys, bladder reconstruction) Social History Alcohol Use: Yes (1 drink a day ) Tobacco Use: No Substance Use: No Allergies-Medications (Allergen,Severity, Reaction): Coded Allergies: Sulfa (Sulfonamide Antibiotics) (Verified Allergy, Severe, RASH, 08/14/17) aspirin (Verified Adverse Reaction, Severe, STIOMACH PAIN, 08/14/17) morphine (Verified Adverse Reaction, Severe, Hallucinations, 08/14/17) Reported Meds & Prescriptions Reported Meds & Active Scripts Active [place] (Hydrocodone-Acetaminophen) 7.5-325 mg Tab 1 Tab PO Q6H PRN Keflex (Cephalexin) 500 Mg Cap 500 Mg PO TID Reported Simvastatin 10 Mg Tab 10 Mg PO DAILY Iron (Ferrous Gluconate) 256 Mg (28 Mg Iron) Tab 325 Mg PO DAILY Finasteride 5 Mg Tab 5 Mg PO DAILY Do not crush. Advair Diskus Inh (Fluticasone-Salmeterol Inh) 250-50 Mcg/Blist Aer 1 Puff INH BID Rinse mouth after use. Hydrochlorothiazide 12.5 Mg Cap 12.5 Mg PO DAILY Lexapro (Escitalopram Oxalate) 10 Mg Tab 10 Mg PO DAILY Warfarin 2.5 Mg Tab 2.5 Mg PO MOWETHSASU Review of Systems Except as stated in HPI: all other systems reviewed are Neg Physical Exam Narrative GENERAL: Well-developed, well-nourished, awake, alert, GCS 15, no apparent distress. SKIN: Focused skin assessment warm/dry. No lacerations, abrasions, or ecchymosis. Left anterior chest wall with Steri-Strips in place at site of pacemaker replacement that are clean, dry, intact, no warmth erythema. HEAD: Atraumatic. Normocephalic. EYES: Pupils equal and round. No scleral icterus. No injection or drainage. ENT: No nasal bleeding or discharge. Mucous membranes pink and moist. NECK: Trachea midline. No JVD. No midline cervical spine step-off or tenderness. CARDIOVASCULAR: Regular rate and rhythm. No murmur appreciated. RESPIRATORY: No accessory muscle use. Clear to auscultation. Breath sounds equal bilaterally. GASTROINTESTINAL: Abdomen soft, non-tender, nondistended. Hepatic and splenic margins not palpable. MUSCULOSKELETAL: No obvious deformities. No clubbing. No cyanosis. No edema. No midline thoracic spine or lumbar spine tenderness or step-off. NEUROLOGICAL: Awake and alert. No obvious cranial nerve deficits. Motor grossly within normal limits. Normal speech. PSYCHIATRIC: Appropriate mood and affect; insight and judgment normal. Data Data Last Documented VS Vital Signs Date Time Temp Pulse Resp B/P (MAP) Pulse Ox O2 Delivery O2 Flow Rate FiO2 08/14/17 17:27 Room Air 08/14/17 15:55 98.4 70 18 127/59 (81) [address] Brain W/O Iv Contrast(Rout) (08/14/17 ) Ct Cerv Spine W/O Contrast (08/14/17 ) Spine, Lumbar - Ltd (Ap & Lat) (08/14/17 ) Spine, Thoracic-Ap/Lat/Sw(3vw) (08/14/17 ) Chest, Pa & Lat (08/14/17 ) Knee, Complete (4vws) (08/14/17 ) [facility] Medical Decision Making Medical Screen Exam Complete: Yes Emergency Medical Condition: Yes Medical Record Reviewed: Yes Differential Diagnosis Mechanical fall, closed head injury, intracranial trauma, cervical spine injury , vertebral injury, right knee injury Narrative Course Vital signs reviewed. CT head: No acute disease. CT cervical spine: Degenerative changes without acute fracture. Thoracic spine x-ray: No acute disease. Lumbar spine x-ray: No acute disease. Right knee x-ray: No acute disease. Chest x-ray: No acute disease. The patient was made aware of all findings. He is resting comfortably. He is here with 1 of his friends who will drive him home. He is stable for discharge home with outpatient follow-up with his [facility] physician this week. He was advised on when to return to the emergency department. He verbalizes understanding and agreement with plan. Diagnosis Primary Impression: Fall Qualified Codes: W19.XXXA - Unspecified fall, initial encounter Additional Impression: Closed head injury Qualified Codes: S09.90XA - Unspecified injury of head, initial encounter Referrals: Primary Care Physician 3 days Additional Instructions: Follow-up with your primary care physician this week. Return to the emergency department for worsening symptoms or any other concerns. Disposition: 01 DISCHARGE HOME Condition: Stable Sen Tabares MD Aug 14, 2017 17:41
== END 2017-08-14 18:49 | disposition home or self-care (01) ==
LOC: NEPD 15:41
DX: S09.90XA Unspecified injury of head, initial encounter (principal); M54.2 Cervicalgia; M25.561 Pain in right knee; I48.91 Unspecified atrial fibrillation; M50.30 Other cervical disc degeneration, unspecified cervical region; J44.9 Chronic obstructive pulmonary disease, unspecified; J45.909 Unspecified asthma, uncomplicated; M19.90 Unspecified osteoarthritis, unspecified site; W01.198A Fall on same level from slipping, tripping and stumbling with subsequent striking against other object, initial encounter
CPT/HCPCS: 70450; 71046; 72072; 72100; 72125; 73564

== ENCOUNTER 2018-06-07 10:12 | Inpatient (IN) ==
--- NOTE | 2018-06-07 11:13 | ED ---
HPI General Chief Complaint: Extremity Injury, Lower Stated Complaint: Knee pain Time Seen by Provider: 06/07/18 10:59 Source: patient and RN notes reviewed Limitations: no limitations History of Present Illness HPI Narrative: 87-year-old male presents to the emergency department for evaluation after a fall yesterday which he injured his right knee. Patient states he fell, lost his balance, getting off the toilet. He states he landed on his right knee. He is adamant that he had no head injury or LOC. He denies any new neck pain or back pain. No chest pain or abdominal pain. No vomiting. No hip pain or pelvic pain. Current pain in the right knee is 10/10. He states he has had trouble ambulating since the fall. Reports history of knee pain, but never had surgery in the before. Patient is on Coumadin. He is adamant he did not hit his head. He denies any headache. No dizziness. No visual changes. Moderate severity. MD complaint: Reports knee injury Onset (ago): day(s) (1) Injury: Right: knee Type of Injury: Reports blunt Place: Reports home Severity: moderate Severity scale (1-10): 10 Relieving factors: immobilization Exacerbating factors: weight bearing, movement and palpation Context: Reports fall Associated symptoms: Reports swelling and unable to bear weight Other symptoms: Reports none; Denies loss of consciousness, chest pain, diaphoresis, SOB, nausea/vomiting, seizure, syncope and confusion Related Data Home Medications Medication Instructions Recorded Confirmed atorvastatin 20 mg PO DAILY 06/07/18 06/07/18 cholecalciferol (vitamin D3) 1,000 unit PO DAILY 06/07/18 06/07/18 [Vitamin D3] escitalopram oxalate 10 mg PO DAILY 06/07/18 06/07/18 finasteride 5 mg PO DAILY 06/07/18 06/07/18 fluticasone-salmeterol [Advair 1 inh INHALATION Q12H 06/07/18 06/07/18 Diskus] hydrochlorothiazide 12.5 mg PO DAILY 06/07/18 06/07/18 sulfamethoxazole-trimethoprim 1 tab PO BID 06/07/18 06/07/18 [Bactrim] warfarin 3 mg PO QTUTHSA 06/07/18 06/07/18 warfarin 5 mg PO Q OTHER DAY 06/07/18 06/07/18 Allergies Allergy/AdvReac Type Severity Reaction Status Date / Time Sulfa (Sulfonamide Allergy Severe RASH Verified 06/07/18 10:24 Antibiotics) aspirin AdvReac Severe STIOMACH Verified 06/07/18 10:24 PAIN morphine AdvReac Severe Hallucinati Verified 06/07/18 10:24 ons Review of Systems ROS: all other systems reviewed are negative [facility] Medical History Medical History FH: cholecystectomy (Acute) UTI (urinary tract infection) (Acute) Afib (Acute) BPH (benign prostatic hyperplasia) (Acute) Depression (Acute) Pacemaker (Acute) Surgical History Surgical History H/O hernia repair (Acute) Hx of appendectomy (Acute) Hx of colonoscopy (Acute) Social History Social History Substance History: No History of Abuse Smoking Status: Former smoker How Often Do You Have a Drink Containing Alcohol: Never Recent Travel in [facility] within the Last 8 Weeks: No Recent Out of Country Travel within the Last 8 Weeks: No Immunization History Tetanus Immunization: >5 Years Exam Narrative Exam Narrative: GENERAL: Well-nourished, well-developed male patient, afebrile. SKIN: Focused skin assessment warm/dry. No lacerations or abrasions. ENT: Mucosa pink and moist. No erythema or exudates. No uvular edema. No uvular , palatal, or tonsillar deviation. Airway patent. Nasal turbinates appear normal without nasal blood, purulent drainage or septal hematoma. Bilateral tympanic membranes clear without erythema or perforation. HEAD: Normocephalic. Atraumatic EYES: No scleral icterus. No injection or drainage. NECK: Supple, trachea midline. No JVD or lymphadenopathy. CARDIOVASCULAR: Regular rate and rhythm without gallops, or rubs. Systolic murmur noted RESPIRATORY: Breath sounds equal bilaterally. No accessory muscle use. Lung sounds are clear to auscultation GASTROINTESTINAL: Abdomen soft, non-tender, nondistended. MUSCULOSKELETAL: No cyanosis. Patient has swelling to the right anterior knee with tenderness to palpation over the right medial knee. BACK: Nontender without obvious deformity. No CVA tenderness. No midline spinal tenderness. Course Initial Documented Vital Signs Pulse Rate 84 06/07/18 10:16 Respiratory Rate 18 06/07/18 10:16 Blood Pressure 132/98 H 06/07/18 10:16 Pulse Oximetry 95 06/07/18 10:16 Last Documented Vital Signs Pulse Rate 68 06/07/18 11:50 Respiratory Rate 18 06/07/18 11:50 Blood Pressure 127/66 06/07/18 11:50 Pulse Oximetry 98 06/07/18 11:50 Medical Decision Making MDM Narrative Medical decision making narrative: 87-year-old male presents to the emergency department for evaluation of right knee injury that occurred yesterday afternoon after he lost his balance and fell. He denies any other injury. IV access obtained. CBC, BMP, PT/INR ordered and pending. X-ray of the right knee is ordered and pending. Patient is given [place] 5/325 mg p.o. for pain. CBC shows no acute abnormality. BMP shows hyponatremia of 123. PT/INR is 47.0/ 4.7. X-ray of the right knee shows moderate sized suprapatellar effusion, no acute fracture. Patient is given 1 L normal saline IV bolus. EKG is ordered and pending. Patient will be admitted for hyponatremia. He verbalizes agreement. Upon further questioning, he does state he has been slightly weaker than normal. Dr. Rodriguez accepted admission. Medical Screen Exam Complete: Yes Emergency Medical Condition: Yes Differential Diagnosis Differential Diagnosis: Fracture versus dislocation versus contusion versus sprain Medical Records Medical records reviewed: Yes I reviewed the patient's medical records. Lab Data Result diagrams: 06/07/18 11:11 06/07/18 11:11 Lab Results 06/07/18 06/07/18 06/07/18 Range/Units 11:11 11:11 11:40 WBC 8.1 (4.0-11.0) th/mm3 RBC 3.51 L (4.50-5.90) mil/mm3 Hgb 11.8 L (13.0-17.0) gm/dL Hct 33.1 L (39.0-51.0) % MCV 94.4 (80.0-100.0) fL MCH 33.7 (27.0-34.0) pg MCHC 35.7 (32.0-36.0) % RDW 15.7 (11.6-17.2) % Plt Count 209 (150-450) th/mm3 MPV 8.0 (7.0-11.0) fL Neut % (Auto) 82.9 H (16.0-70.0) % Lymph % (Auto) 7.6 L (9.0-44.0) % [place] % (Auto) 8.7 H (0.0-8.0) % Eos % (Auto) 0.3 (0.0-4.0) % Baso % (Auto) 0.5 (0.0-2.0) % Neut # (Auto) 6.7 (1.8-7.7) th/mm3 Lymph # (Auto) 0.6 L (1.0-4.8) th/mm3 [place] # (Auto) 0.7 (0.0-0.9) th/mm3 Eos # (Auto) 0.0 (0.0-0.4) th/mm3 Baso # (Auto) 0.0 (0.0-0.2) th/mm3 WBC Differential . Differential Comment Auto diff final PT 47.0 H (9.8-11.6) sec INR 4.7 Ratio Sodium 123 L* (136-145) meq/L Potassium 4.2 (3.5-5.1) meq/L Chloride 86 L (98-107) meq/L Carbon Dioxide 28.6 (21.0-32.0) meq/L Anion Gap 8 (5-15) meq/L BUN 16 (7-18) mg/dL Creatinine 0.70 (0.60-1.30) mg/dL Estimated GFR Greater than 89 (>89) mL/min Random Glucose 81 (74-106) mg/dL Calcium 9.1 (8.5-10.1) mg/dL Imaging Data Radiologist's impression: Knee X-Ray 06/07/18 11:08 CONCLUSION: 1. Moderate sized suprapatellar effusion. 2. No acute fracture. Discharge Plan Discharge Disposition Patient Disposition: ED Admit(ED Internal Use Only) Discharge Order Discharge Orders: ED Use Only Admit Order (Routine); Ordered 06/07/18 Ordered By: Cele Coleman Discharge Details Diagnosis: Acute hyponatremia Physicians Team ED Provider: Sam Walker ED Midlevel Provider: Cele Coleman Primary Care Provider: Steven Milton Rxs /Orders / Referrals /Forms Prescriptions: No Action atorvastatin 40 mg Tablet 20 mg PO DAILY RF: 0 fluticasone-salmeterol [Advair Diskus] 250-50 mcg/dose Blister With Device 1 inh INHALATION Q12H RF: 0 sulfamethoxazole-trimethoprim [Bactrim] 400-80 mg Tablet 1 tab PO BID RF: 0 warfarin 3 mg Tablet 3 mg PO QTUTHSA RF: 0 warfarin 5 mg Tablet 5 mg PO Q OTHER DAY RF: 0 finasteride 5 mg Tablet 5 mg PO DAILY RF: 0 cholecalciferol (vitamin D3) [Vitamin D3] 1,000 unit Capsule 1,000 unit PO DAILY RF: 0 escitalopram oxalate 10 mg Tablet 10 mg PO DAILY RF: 0 hydrochlorothiazide 12.5 mg Tablet 12.5 mg PO DAILY RF: 0 Status ED Status: Admitted Observation Patient
[2018-06-07 11:26] LABS: Baso % (Auto) 0.5 % (0.0-2.0); Eos % (Auto) 0.3 % (0.0-4.0); Hematocrit 33.1 % (39.0-51.0); Hemoglobin 11.8 gm/dL (13.0-17.0); Lymph # (Auto) 0.6 th/mm3 (1.0-4.8); Lymph % (Auto) 7.6 % (9.0-44.0); Mean Corpuscular HGB Conc 35.7 % (32.0-36.0); Mean Corpuscular Hemoglobin 33.7 pg (27.0-34.0); Mean Corpuscular Volume 94.4 fL (80.0-100.0); Mono # (Auto) 0.7 th/mm3 (0.0-0.9); Mono % (Auto) 8.7 % (0.0-8.0); Neut # (Auto) 6.7 th/mm3 (1.8-7.7); Neut % (Auto) 82.9 % (16.0-70.0); Platelet Count 209 th/mm3 (150-450); Red Blood Count 3.51 mil/mm3 (4.50-5.90); Red Cell Distribution Width 15.7 % (11.6-17.2); White Blood Count 8.1 th/mm3 (4.0-11.0)
[2018-06-07 11:47] LABS: Anion Gap 8 meq/L (5-15); Blood Urea Nitrogen 16 mg/dL (7-18); Calcium 9.1 mg/dL (8.5-10.1); Carbon Dioxide 28.6 meq/L (21.0-32.0); Chloride 86 meq/L (98-107); Glomerular Filtration Rate Greater Than 89 mL/min (>89); Glucose,Random 81 mg/dL (74-106)
[2018-06-07 11:51] LABS: Potassium 4.2 meq/L (3.5-5.1); Sodium 123 meq/L (136-145)
[2018-06-07] MEDS ORDERED: Sod Chloride 0.9% Inj 1,000 ML IV.SIG ONE (11:55)
[2018-06-07 12:23] LABS: INR 4.7 Ratio
--- NOTE | 2018-06-07 12:32 | XR ---
EXAM DATE: 06/07/2018 12:23 PM EST AGE/SEX: 87 years / Male INDICATIONS: Patient fell on right knee. CLINICAL DATA: This is the patient's initial encounter. Patient reports that signs and symptoms have been present for 1 day and indicates a pain score of 10/10. MEDICAL/SURGICAL HISTORY: Cardiovascular disease. Pacemaker. [place] [facility] [place]4VWS[place]/14/2017. . FINDINGS: Bony structures are intact and in normal alignment. Joints are intact without dislocation . 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 Osseous density is normal. Moderate sized suprapatellar effusion. Soft tissues are unremarkable. No radiopaque foreign bodies seen. CONCLUSION: 1. Moderate sized suprapatellar effusion. 2. No acute fracture. Electronically signed by: Deon Silva MD Board Certified Radiologist 06/07/2018 12:31 PM EST
[2018-06-07] MEDS ORDERED: Non-Formulary Drug (Fluticasone-Salmeterol [Advair Diskus] 1 INH) INHALATION SCH (16:45)
[2018-06-07] MEDS ORDERED: Morphine Inj 4 MG/ML Vial ONE (16:49)
--- NOTE | 2018-06-07 17:14 | P.HP ---
History of Present Illness Primary Care Physician: Steven Milton DO History of Present Illness: 87-year-old white male being admitted for hyponatremia. Patient was in his usual state of health until yesterday as he was try to get off the toilet he fell as he was trying to get up off of it, misplaced his foot. He denies experiencing lightheadedness or chest pain surrounding the incident. Landed on his right knee. Has been taking Tylenol every 4 hours to no avail. Due to the persistent pain decided to come in today. Reports having worsening pain with weightbearing, had to call 911 to be transported to the hospital today. Patient reports having a history of arthritis in both knees, used to get steroid shots in the right knee but says he was told it was [id number] arthritis which would not respond to steroids. Denies having any arthroplasties or fracture repairs. In the emergency department plain film was obtained of the right knee which showed a prepatellar effusion, patient's INR was 4.7, has a history of A. fib for which he takes warfarin. Also has a pacemaker as well. 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 Ramos. Patient noted to have a sodium of 123 in the emergency department, chronically his sodium fluctuates from 130-136. Apparently takes hydrochlorthiazide is at home blood pressure medication. ER nurse also noted that the patient had trouble urinating, bladder scan demonstrated 800 cc, had a Barnett placed. Inpatient Certification: I certify that the inpatient services were ordered in accordance with Medicare regulations governing the order. This includes certification that hospital inpatient services are reasonable and necessary and in the case of services not specified as inpatient-only under 42 CFR 419.22(n), that they are appropriately provided as inpatient services in accordance to with the 2-midnight benchmark under 43 CFR 412.3(e) Estimated Total Length of Stay (Days): 2 Plans for Post Hospital Care: Not yet determined Review of Systems All other systems reviewed negative except as stated in HPI PMFSH - History History Provided By: Patient - Medical History Medical History: Medical History (Last Reviewed 06/07/18 @ 17:13 by Arnie Rodriguez MD) FH: cholecystectomy UTI (urinary tract infection) Afib BPH (benign prostatic hyperplasia) Depression Pacemaker - Surgical History Surgical History: Surgical History (Last Reviewed 06/07/18 @ 17:13 by Arnie Rodriguez MD) H/O hernia repair Hx of appendectomy Hx of colonoscopy - Family History Family History: Family History (Last Updated 06/07/18 @ 17:14 by Arnie Rodriguez MD) Other HTN (hypertension) - Social History I have reviewed the patient's Social History: Yes - Tobacco History Smoking Status: Former smoker - Alcohol History How Often Do You Have a Drink Containing Alcohol: Never - Substance Use History Substance History: No History of Abuse - Travel History Recent Travel in the [place] Within the Last 8 Weeks: No Recent Travel Out of the Country Within the Last 8 Weeks: No - Immunization History Tetanus Immunization: >5 Years Medications and Allergies Active Medications: Active Medications Hydrocodone Bitart/Acetaminophen ([place] 5/325) 1 tab PO Q8H PRN PRN Reason: pain Atorvastatin Calcium (Lipitor) 20 mg PO DAILY ARIS Escitalopram Oxalate (Lexapro) 10 mg PO DAILY ARIS Finasteride (Proscar) 5 mg PO DAILY ARIS Morphine Sulfate (Morphine Inj) 2 mg IV.PUSH ONCE ONE Stop: 06/07/18 16:50 Non-Formulary Medication (Fluticasone-Salmeterol [Advair Diskus]) 1 inh INHALATION Q12H ARIS Sodium Chloride (Ns Flush) 2 ml IV.FLUSH BID ARIS Sodium Chloride (Ns Flush) 2 ml IV.FLUSH UNSCH PRN PRN Reason: FLUSH AFTER USING IV ACCESS Tamsulosin HCl (Flomax) 0.4 mg PO HS ARIS Vitamin D (Vitamin D3) 1,000 unit PO DAILY ARIS Allergies Allergy/AdvReac Type Severity Reaction Status Date / Time Sulfa (Sulfonamide Allergy Severe RASH Verified 06/07/18 10:24 Antibiotics) aspirin AdvReac Severe STIOMACH Verified 06/07/18 10:24 PAIN morphine AdvReac Severe Hallucinati Verified 06/07/18 10:24 ons Home Medications Medication Instructions Recorded Confirmed Type atorvastatin 20 mg PO DAILY 06/07/18 06/07/18 History cholecalciferol (vitamin D3) 1,000 unit PO DAILY 06/07/18 06/07/18 History [Vitamin D3] escitalopram oxalate 10 mg PO DAILY 06/07/18 06/07/18 History finasteride 5 mg PO DAILY 06/07/18 06/07/18 History fluticasone-salmeterol [Advair 1 inh INHALATION Q12H 06/07/18 06/07/18 History Diskus] hydrochlorothiazide 12.5 mg PO DAILY 06/07/18 06/07/18 History sulfamethoxazole-trimethoprim 1 tab PO BID 06/07/18 06/07/18 History [Bactrim] warfarin 3 mg PO QTUTHSA 06/07/18 06/07/18 History warfarin 5 mg PO Q OTHER DAY 06/07/18 06/07/18 History Exam Vital signs: Vital Signs 06/07/18 10:16 06/07/18 11:50 06/07/18 13:40 Pulse Rate 84 68 73 Respiratory Rate 18 18 18 Blood Pressure 132/98 H 127/66 163/73 H Pulse Oximetry 95 98 97 Intake & Output 06/06/18 06/07/18 06/07/18 18:59 06:59 18:59 Intake Total 1000 / 1000 Output Total 800 / 800 Balance 200 / 200 Weight 70.307 kg Intake: IV 1000 / 1000 NS Inj 1,000 ML @ Wide Open IV. 1000 / 1000 SIG BOLUS ONE Rx#:[id number] Output: Urine 100 / 100 Urine Amount (Catheter) 700 / 700 Indwelling Urethral Catheter 700 / 700 Narrative: VS: afebrile GENERAL: Lying in bed, mild distress secondary to pain SKIN: Has multiple bruises over his left forearm, a very faint bruising noted over his right infrapatellar region, both feet are cool EYES: No scleral icterus. No injection or drainage. ENT: Normocephalic, atraumatic CARDIOVASCULAR: Regular rate and rhythm. no murmurs RESPIRATORY: No accessory muscle use. Clear to auscultation. Breath sounds equal bilaterally. GASTROINTESTINAL: Abdomen soft, non-tender, nondistended. MUSCULOSKELETAL: palpable intact patella with a suprapatellar effusion palpated , no erythema noted or meagan ecchymosis noted; has palpable sounds pedis pulse on the right foot, has pain elicited up through his right lower extremity upon passive dorsiflexion, has intact sensation to light finger touch over the plantar aspect and dorsal aspect of his foot, neurovascularly intact Patient is able to demonstrate lateral right hip rotation with some pain elicited in the knee joint, also was able to demonstrate right hip flexion partially limited with pain elicited in the knee joint, there is no leg length discrepancy noted Has delayed cap refill about 2-3 seconds noted on bilateral feet Mod pain elicited on right knee flexion NEUROLOGICAL: Awake and alert. No obvious cranial nerve deficits. No facial droop nor slurred speech noted. PSYCHIATRIC: Appropriate mood and affect; insight and judgment normal. Results - Labs CBC & Chem 7: 06/07/18 11:11 06/08/18 05:58 Labs: Laboratory Results - last 24 hr 06/07/18 06/07/18 06/07/18 11:11 11:11 11:11 WBC 8.1 RBC 3.51 L Hgb 11.8 L Hct 33.1 L MCV 94.4 MCH 33.7 MCHC 35.7 RDW 15.7 Plt Count 209 MPV 8.0 Neut % (Auto) 82.9 H Lymph % (Auto) 7.6 L [place] % (Auto) 8.7 H Eos % (Auto) 0.3 Baso % (Auto) 0.5 Neut # (Auto) 6.7 Lymph # (Auto) 0.6 L [place] # (Auto) 0.7 Eos # (Auto) 0.0 Baso # (Auto) 0.0 WBC Differential . Differential Comment Auto diff final PT INR Sodium 123 L* Potassium 4.2 Chloride 86 L Carbon Dioxide 28.6 Anion Gap 8 BUN 16 Creatinine 0.70 Estimated GFR Greater than 89 Random Glucose 81 Calcium 9.1 TSH 1.210 06/07/18 11:40 WBC RBC Hgb Hct MCV MCH MCHC RDW Plt Count MPV Neut % (Auto) Lymph % (Auto) [place] % (Auto) Eos % (Auto) Baso % (Auto) Neut # (Auto) Lymph # (Auto) [place] # (Auto) Eos # (Auto) Baso # (Auto) WBC Differential Differential Comment PT 47.0 H INR 4.7 Sodium Potassium Chloride Carbon Dioxide Anion Gap BUN Creatinine Estimated GFR Random Glucose Calcium TSH - Imaging Impressions Knee X-Ray 06/07/18 11:08 CONCLUSION: 1. Moderate sized suprapatellar effusion. 2. No acute fracture. Caprini VTE Risk Assessment Caprini VTE Risk Assessment: Moderate/High Risk (score >= 2) Caprini Risk Assessment Model: Point Value = 1 Point Value = 2 Point Value = 3 Point Value = 5 Age 41-60 Minor surgery BMI > 25 kg/m2 Swollen legs Varicose veins or History of unexplained or recurrent spontaneous Oral contraceptives or hormone replacement Sepsis (< 1 month) Serious lung disease, including pneumonia (< 1 month) Abnormal pulmonary function Acute myocardial infarction Congestive heart failure (< 1 month) History of inflammatory bowel disease Medical patient at bed rest Age 61-74 Arthroscopic surgery Major open surgery (> 45 min) Laparoscopic surgery (> 45 min) Malignancy Confined to bed (> 72 hours) Immobilizing plaster cast Central venous access Age >= 75 History of VTE Family history of VTE Factor V Leiden Prothrombin [id number] Lupus anticoagulant Anticardiolipin antibodies Elevated serum homocysteine Heparin-induced thrombocytopenia Other congenital or acquired thrombophilia Stroke (< 1 month) Elective arthroplasty Hip, pelvis, or leg fracture Acute spinal cord injury (< 1 month) Prophylaxis Regimen: Total Risk Factor Score Risk Level Prophylaxis Regimen 0-1 Low Early ambulation 2 Moderate Order ONE of the following: *Sequential Compression Device (SCD) *Heparin 5000 units SQ BID 3-4 Higher Order ONE of the following medications: *Heparin 5000 units SQ TID *Enoxaparin/Lovenox 40 mg SQ daily (WT < 150 kg, CrCl > 30 mL/min) *Enoxaparin/Lovenox 30 mg SQ daily (WT < 150 kg, CrCl > 10-29 mL/min) *Enoxaparin/Lovenox 30 mg SQ BID (WT < 150 kg, CrCl > 30 mL/min) AND/OR *Sequential Compression Device (SCD) 5 or more Highest Order ONE of the following medications: *Heparin 5000 units SQ TID (Preferred with Epidurals) *Enoxaparin/Lovenox 40 mg SQ daily (WT < 150 kg, CrCl > 30 mL/min) *Enoxaparin/Lovenox 30 mg SQ daily (WT < 150 kg, CrCl > 10-29 mL/min) *Enoxaparin/Lovenox 30 mg SQ BID (WT < 150 kg, CrCl > 30 mL/min) AND *Sequential Compression Device (SCD) Assessment and Plan - Plan 79-year-old white male being admitted for hyponatremia and intractable right knee pain Hyponatremia Possibly secondary to dehydration and/or medication side effect -check TSH Hold home Hydrocort thiazide Status post IV bolus, recheck BMP tonight and in a.m., may administer IV fluids as appropriate Intractable right knee pain Secondary to contusion injury with effusion compounded with supratherapeutic INR -Ice pack, morphine, [place] is warranted R Foot pain and thigh pain Could be pain radiating but will obtain ankle and femur x-rays to rule out any other fractures -no Clinical evidence of cold foot or neurovascular compromise, has intact pulses A. fib Currently in normal sinus rhythm at this time, will hold warfarin given supratherapeutic INR, may recheck INR 1-2 days BPH Finasteride, Flomax -Likely has suffered an acute stretch injury, maintain Barnett for now Recent UTI Patient was placed on Bactrim although he claims to be allergic to sulfa drugs , does not know the adverse reaction from sulfa drugs We will repeat UA and will hold off antibiotics if appears unremarkable Continue home lexapro, lipitor, Vit D Supratherapeutic on warfarin After indicated to having SCD on right lower extremity secondary to injury
[2018-06-07 17:56] LABS: Bacteria,Urine Occasional /hpf; Bilirubin,Urine Negative (Negative); Clarity,Urine Clear (Clear); Color,Urine Yellow (Yellw/Straw); Glucose,Urine (UA) Negative (Negative); Hyaline Casts,Urine 3 /lpf (0-3); Leukocyte Esterase,Urine Negative (Negative); Mucus,Urine Few /lpf (Occasional); Nitrite,Urine Negative (Negative); Specific Gravity,Urine 1.018 (1.002-1.035); Squamous Epithelial Cell,Urine <1 /hpf (0-5); Urobilinogen,Urine 4 or Greater mg/dL (Less than 2)
--- NOTE | 2018-06-07 18:05 | XR ---
EXAM DATE: 06/07/2018 6:01 PM EST AGE/SEX: 87 years / Male INDICATIONS: Patient fell on right leg today and unable to bear weight. CLINICAL DATA: This is the patient's initial encounter. Patient reports that signs and symptoms have been present for 1 day and indicates a pain score of 9/10. MEDICAL/SURGICAL HISTORY: Cardiovascular disease. Pacemaker. COMPARISON: No prior exams available for comparison. FINDINGS: Bony structures are intact and in normal alignment. Joints are intact without dislocation or signifi cant arthropathy. Osseous density is reduced. Soft tissues are unremarkable. No radiopaque foreign bodies seen. CONCLUSION: No evidence of recent bony injury. Electronically signed by: Mayito Jessica MD Board Certified Radiologist 06/07/2018 6:04 PM EST
--- NOTE | 2018-06-07 18:12 | XR ---
EXAM DATE: 06/07/2018 6:03 PM EST AGE/SEX: 87 years / Male INDICATIONS: Patient fell on right leg today and unable to bear weight. CLINICAL DATA: This is the patient's initial encounter. Patient reports that signs and symptoms have been present for 1 day and indicates a pain score of 9/10. MEDICAL/SURGICAL HISTORY: Cardiovascular disease. Pacemaker. [place] [facility] [place] 4[place]07/2018. . FINDINGS: Bony structures are intact and in normal alignment. Osseous density is reduced. Soft tissues are unre markable. No radiopaque foreign bodies seen. See the knee x-ray report separately. CONCLUSION: No evidence of recent bony injury. Electronically signed by: Mayito Jessica MD Board Certified Radiologist 06/07/2018 6:11 PM EST
[2018-06-07] MEDS ORDERED: Morphine Inj 4 MG/ML Vial IV.PUSH ONE ×2 (18:30)
[2018-06-07 19:31] LABS: Anion Gap 8 meq/L (5-15); Blood Urea Nitrogen 16 mg/dL (7-18); Carbon Dioxide 28.4 meq/L (21.0-32.0); Chloride 88 meq/L (98-107); Glomerular Filtration Rate Greater Than 89 mL/min (>89); Glucose,Random 80 mg/dL (74-106); Potassium 4.2 meq/L (3.5-5.1)
[2018-06-07 19:34] LABS: Sodium 124 meq/L (136-145)
[2018-06-07] MEDS: Sod Chloride 0.9% Inj 1,000 ML IV.CONT SCH (21:22)
[2018-06-07] MEDS: Budesonide-Formoterol 160/4.5 MCG 6 GM Inhaler INH SCH (21:22)
[2018-06-08 06:35] LABS: INR 5.7 Ratio
[2018-06-08 06:58] LABS: Anion Gap 6 meq/L (5-15); Blood Urea Nitrogen 21 mg/dL (7-18); Calcium 9.2 mg/dL (8.5-10.1); Chloride 88 meq/L (98-107); Glomerular Filtration Rate Greater Than 89 mL/min (>89); Glucose,Random 77 mg/dL (74-106); Potassium 4.2 meq/L (3.5-5.1); Sodium 125 meq/L (136-145)
[2018-06-08] MEDS: Budesonide-Formoterol 160/4.5 MCG 6 GM Inhaler INH SCH ×2 (08:00→20:27)
[2018-06-08] MEDS: Escitalopram 10 MG Tablet PO SCH (08:02)
[2018-06-08] MEDS: Finasteride 5 MG Tablet PO SCH (08:02)
--- NOTE | 2018-06-08 14:32 | P.PNIM ---
Subjective Interval history: 87-year-old white male being admitted for hyponatremia. Patient was in his usual state of health until yesterday as he was try to get off the toilet he fell as he was trying to get up off of it, misplaced his foot. He denies experiencing lightheadedness or chest pain surrounding the incident. Landed on his right knee. Has been taking Tylenol every 4 hours to no avail. Due to the persistent pain decided to come in today. Reports having worsening pain with weightbearing, had to call 911 to be transported to the hospital today. Patient reports having a history of arthritis in both knees, used to get steroid shots in the right knee but says he was told it was [id number]-[id number] arthritis which would not respond to steroids. Denies having any arthroplasties or fracture repairs. In the emergency department plain film was obtained of the right knee which showed a prepatellar effusion, patient's INR was 4.7, has a history of A. fib for which he takes warfarin. Also has a pacemaker as well. 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 Patient noted to have a sodium of 123 in the emergency department, chronically his sodium fluctuates from 130-136. Apparently takes hydrochlorothiazide at home blood pressure medication. ER nurse also noted that the patient had trouble urinating, bladder scan demonstrated 800 cc, had a Barnett placed. 1-4 patient still has elevated INR Sodium has not improved much only up to 125 We will get a.m. labs We will get physical therapy and occupational therapy to eval and treat We will continue to hold Coumadin/warfarin as well as hydrochlorothiazide Physical Exam Vital signs: Vital Signs 06/07/18 18:23 06/07/18 19:24 06/07/18 22:08 Temperature 99.3 F Pulse Rate 70 81 79 Respiratory Rate 18 18 18 Blood Pressure 147/70 H 138/82 140/76 Pulse Oximetry 98 95 96 06/07/18 22:17 06/07/18 22:48 06/08/18 00:08 Temperature Pulse Rate 80 69 Respiratory Rate 16 Blood Pressure Pulse Oximetry 06/08/18 00:11 06/08/18 05:20 06/08/18 06:13 Temperature 98.8 F 98.7 F Pulse Rate 77 79 Respiratory Rate 18 18 16 Blood Pressure 111/60 109/52 L Pulse Oximetry 95 97 06/08/18 07:43 06/08/18 09:00 Temperature 98.1 F Pulse Rate 88 71 Respiratory Rate 22 Blood Pressure 110/57 L Pulse Oximetry 94 L Intake & Output 06/07/18 06/08/18 06/08/18 18:59 06:59 18:59 Intake Total 1000 / 1000 200 / 200 Output Total 800 / 800 300 / 300 Balance 200 / 200 -100 / -100 Weight 70.307 kg 70 kg Intake: IV 1000 / 1000 NS Inj 1,000 ML @ Wide Open IV. 1000 / 1000 SIG BOLUS ONE Rx#:[id number] Oral 200 / 200 Output: Urine 100 / 100 Urine Amount (Catheter) 700 / 700 300 / 300 Indwelling Urethral Catheter 700 / 700 300 / 300 Other: Date of Last Bowel Movement 06/07/18 Weight On Admission 70 kg Narrative: VS: afebrile GENERAL: Lying in bed, mild distress secondary to pain SKIN: Has multiple bruises over his left forearm, a very faint bruising noted over his right infrapatellar region, both feet are cool EYES: No scleral icterus. No injection or drainage. ENT: Normocephalic, atraumatic CARDIOVASCULAR: IRRegular rate and rhythm. no murmurs S1-S2 no S3 or S4 RESPIRATORY: No accessory muscle use. Clear to auscultation. Breath sounds equal bilaterally. GASTROINTESTINAL: Abdomen soft, non-tender, nondistended. MUSCULOSKELETAL: palpable intact patella with a suprapatellar effusion palpated , no erythema noted or meagan ecchymosis noted; has palpable sounds pedis pulse on the right foot, has pain elicited up through his right lower extremity upon passive dorsiflexion, has intact sensation to light finger touch over the plantar aspect and dorsal aspect of his foot, neurovascularly intact Patient is able to demonstrate lateral right hip rotation with some pain elicited in the knee joint, also was able to demonstrate right hip flexion partially limited with pain elicited in the knee joint, there is no leg length discrepancy noted Has delayed cap refill about 2-3 seconds noted on bilateral feet Mod pain elicited on right knee flexion NEUROLOGICAL: Awake and alert. No obvious cranial nerve deficits. No facial droop nor slurred speech noted. PSYCHIATRIC: Appropriate mood and affect; insight and judgment normal. - Urinary Catheter Management Indwelling Urethral Catheter Cath placed during this visit: yes Reason for continuing: Acute urinary retention Insertion date: 06/07/18 Insertion time: 14:45 Results - Labs CBC & Chem 7: 06/07/18 11:11 06/08/18 05:58 Laboratory Results - last 24 hr 06/07/18 06/07/18 06/08/18 17:25 18:48 05:58 PT INR Sodium 124 L* 125 L Potassium 4.2 4.2 Chloride 88 L 88 L Carbon Dioxide 28.4 31.0 Anion Gap 8 6 BUN 16 21 H Creatinine 0.66 0.73 Estimated GFR Greater than 89 Greater than 89 Random Glucose 80 77 Calcium 9.0 9.2 Urine Color Yellow Urine Clarity Clear Urine pH 6.0 Ur Specific [place] 1.018 Urine Protein 30 H Urine Glucose (UA) Negative Urine Ketones 20 Urine Occult Blood Moderate H Urine Nitrate Negative Urine Bilirubin Negative Urine Urobilinogen 4 or greater Ur Leukocyte Esterase Negative Urine RBC 119 H Urine WBC 1 Ur Squamous Epith Cells <1 Urine Bacteria Occasional H Hyaline Casts 3 Urine Mucus Few H Micro UA Comment Cath-culture ind Ur Microscopic Review Not Reportable Urine Culture Comments Cath-cult indicated 06/08/18 05:58 PT 57.0 H D INR 5.7 Sodium Potassium Chloride Carbon Dioxide Anion Gap BUN Creatinine Estimated GFR Random Glucose Calcium Urine Color Urine Clarity Urine pH Ur Specific [place] Urine Protein Urine Glucose (UA) Urine Ketones Urine Occult Blood Urine Nitrate Urine Bilirubin Urine Urobilinogen Ur Leukocyte Esterase Urine RBC Urine WBC Ur Squamous Epith Cells Urine Bacteria Hyaline Casts Urine Mucus Micro UA Comment Ur Microscopic Review Urine Culture Comments Microbiology 06/07/18 17:25 Catheterized Urine Urine Culture - Preliminary No growth in 24 hours - Imaging Impressions Ankle X-Ray 06/07/18 00:00 CONCLUSION: No evidence of recent bony injury. Femur X-Ray 06/07/18 00:00 CONCLUSION: No evidence of recent bony injury. - Procedures None Assessment and Plan - Plan 87-year-old white male being admitted for hyponatremia and intractable right knee pain Hyponatremia Possibly secondary to dehydration and/or medication side effect -check TSH Hold home HCTZ Status post IV bolus, recheck BMP tonight and in a.m., may administer IV fluids as appropriate Intractable right knee pain Secondary to contusion injury with effusion compounded with supratherapeutic INR -Ice pack, morphine, [place] is warranted R Foot pain and thigh pain Could be pain radiating but will obtain ankle and femur x-rays to rule out any other fractures -no Clinical evidence of cold foot or neurovascular compromise, has intact pulses A. fib Currently in normal sinus rhythm at this time, will hold warfarin given supratherapeutic INR, may recheck INR 1-2 days BPH Finasteride, Flomax -Likely has suffered an acute stretch injury, maintain Barnett for now Continue Barnett catheter as needed Recent UTI Patient was placed on Bactrim although he claims to be allergic to sulfa drugs , does not know the adverse reaction from sulfa drugs We will repeat UA and will hold off antibiotics if appears unremarkable Continue home lexapro for depression anxiety, Continue Lipitor for hypercholesterolemia, Vit D daily Supratherapeutic on warfarin After indicated to having SCD on right lower extremity secondary to injury SP FALL WILL GET PT AND OT TO EVAL AND TREAT No need for DVT prophylaxis with the supratherapeutic INR GI prophylaxis AM LABS Code Status: FULL CODE Discussed Condition With: RN AND PT AND CM Discharge Planning: WHEN PAIN CONTROLLED AND INR IS CLOSE TO THE THERAPEUTIC RANGE
[2018-06-08] MEDS ORDERED: Senna/Docusate Sodium 8.6/50 MG Tablet PO PRN (14:59)
[2018-06-08] MEDS ORDERED: Aluminum/Magnesium/Simethacone Susp 30 ML UDC PO PRN (14:59)
[2018-06-08] MEDS ORDERED: Acetaminophen 325 MG Tablet PO PRN (14:59)
[2018-06-08] MEDS ORDERED: Docusate Sodium 100 MG Capsule PO PRN (14:59)
[2018-06-08] MEDS: Sod Chloride 0.9% Inj 1,000 ML IV.CONT SCH (20:23)
[2018-06-09 08:37] LABS: Albumin 2.9 g/dL (3.4-5.0); Anion Gap 6 meq/L (5-15); Aspartate Aminotransferase 28 U/L (15-37); Blood Urea Nitrogen 28 mg/dL (7-18); Carbon Dioxide 28.3 meq/L (21.0-32.0); Chloride 91 meq/L (98-107); Glomerular Filtration Rate Greater Than 89 mL/min (>89); Glucose,Random 88 mg/dL (74-106); Magnesium 1.7 mg/dL (1.5-2.5); Potassium 4.1 meq/L (3.5-5.1); Sodium 125 meq/L (136-145)
[2018-06-09 08:47] LABS: Alanine Aminotransferase 26 U/L (12-78); Alkaline Phosphatase 61 U/L (45-117); Free T4 (Free Thyroxine) 1.29 ng/dL (0.76-1.46); Phosphorus 2.2 mg/dL (2.5-4.9)
[2018-06-09 08:54] LABS: Baso % (Auto) 0.2 % (0.0-2.0); Hematocrit 26.1 % (39.0-51.0); Hemoglobin 9.2 gm/dL (13.0-17.0); Lymph # (Auto) 0.4 th/mm3 (1.0-4.8); Lymph % (Auto) 5.6 % (9.0-44.0); Mean Corpuscular HGB Conc 35.4 % (32.0-36.0); Mean Corpuscular Hemoglobin 33.5 pg (27.0-34.0); Mean Corpuscular Volume 94.5 fL (80.0-100.0); Mean Platelet Volume 8.4 fL (7.0-11.0); Mono # (Auto) 0.8 th/mm3 (0.0-0.9); Mono % (Auto) 10.6 % (0.0-8.0); Neut # (Auto) 6.6 th/mm3 (1.8-7.7); Neut % (Auto) 83.6 % (16.0-70.0); Platelet Count 147 th/mm3 (150-450); Red Blood Count 2.76 mil/mm3 (4.50-5.90); Red Cell Distribution Width 15.3 % (11.6-17.2); White Blood Count 7.9 th/mm3 (4.0-11.0)
[2018-06-09] MEDS: Escitalopram 10 MG Tablet PO SCH (09:48)
[2018-06-09] MEDS: Finasteride 5 MG Tablet PO SCH (09:49)
[2018-06-09] MEDS: Budesonide-Formoterol 160/4.5 MCG 6 GM Inhaler INH SCH ×2 (09:50→20:57)
--- NOTE | 2018-06-09 12:10 | P.PNIM ---
Subjective Interval history: 87-year-old white male being admitted for hyponatremia. Patient was in his usual state of health until yesterday as he was try to get off the toilet he fell as he was trying to get up off of it, misplaced his foot. He denies experiencing lightheadedness or chest pain surrounding the incident. Landed on his right knee. Has been taking Tylenol every 4 hours to no avail. Due to the persistent pain decided to come in today. Reports having worsening pain with weightbearing, had to call 911 to be transported to the hospital today. Patient reports having a history of arthritis in both knees, used to get steroid shots in the right knee but says he was told it was [id number] arthritis which would not respond to steroids. Denies having any arthroplasties or fracture repairs. In the emergency department plain film was obtained of the right knee which showed a prepatellar effusion, patient's INR was 4.7, has a history of A. fib for which he takes warfarin. Also has a pacemaker as well. 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 Patient noted to have a sodium of 123 in the emergency department, chronically his sodium fluctuates from 130-136. Apparently takes hydrochlorothiazide at home blood pressure medication. ER nurse also noted that the patient had trouble urinating, bladder scan demonstrated 800 cc, had a Barnett placed. 1-4 patient still has elevated INR Sodium has not improved much only up to 125 We will get a.m. labs We will get physical therapy and occupational therapy to eval and treat We will continue to hold Coumadin/warfarin as well as hydrochlorothiazide 1-5 SODIUM STILL LOWER WILL START ON NACL TABS TID AM LABS RELOAD COUMADIN 3MG PO DAILY DW RN AND PT MAY NEED SNF AT [place] STILL COMPLAINING OF PAIN IN RIGHT HIP AREA WILL GET CT OF PELVIS Physical Exam Vital signs: Vital Signs 06/08/18 16:00 06/08/18 20:00 06/09/18 00:48 Temperature 99.8 F H 99 F Pulse Rate 79 80 82 Respiratory Rate 18 16 Blood Pressure 94/68 L 101/53 L Pulse Oximetry 95 99 06/09/18 04:00 06/09/18 08:00 Temperature 98.6 F 97.9 F Pulse Rate 70 89 Respiratory Rate 16 17 Blood Pressure 100/54 L 112/69 Pulse Oximetry 95 95 Intake & Output 06/08/18 06/09/18 06/09/18 18:59 06:59 18:59 Intake Total 880 / 880 1000 / 1000 Output Total 250 / 250 Balance 630 / 630 1000 / 1000 Weight 71.2 kg Intake: IV 1000 / 1000 NS Inj 1,000 ML @ 42 mls/hr IV. 1000 / 1000 CONT .[id number] [facility] Rx#:[id number] Oral 880 / 880 Output: Urine Amount (Catheter) 250 / 250 Indwelling Urethral Catheter 250 / 250 Other: Date of Last Bowel Movement 06/07/18 06/07/18 Narrative: VS: afebrile GENERAL: Lying in bed, mild distress secondary to pain SKIN: Has multiple bruises over his left forearm, a very faint bruising noted over his right infrapatellar region, both feet are cool EYES: No scleral icterus. No injection or drainage. ENT: Normocephalic, atraumatic CARDIOVASCULAR: IRRegular rate and rhythm. no murmurs S1-S2 no S3 or S4 RESPIRATORY: No accessory muscle use. Clear to auscultation. Breath sounds equal bilaterally. GASTROINTESTINAL: Abdomen soft, non-tender, nondistended. MUSCULOSKELETAL: palpable intact patella with a suprapatellar effusion palpated , no erythema noted or meagan ecchymosis noted; has palpable sounds pedis pulse on the right foot, has pain elicited up through his right lower extremity upon passive dorsiflexion, has intact sensation to light finger touch over the plantar aspect and dorsal aspect of his foot, neurovascularly intact Patient is able to demonstrate lateral right hip rotation with some pain elicited in the knee joint, also was able to demonstrate right hip flexion partially limited with pain elicited in the knee joint, there is no leg length discrepancy noted Has delayed cap refill about 2-3 seconds noted on bilateral feet Mod pain elicited on right knee flexion NEUROLOGICAL: Awake and alert. No obvious cranial nerve deficits. No facial droop nor slurred speech noted. PSYCHIATRIC: Appropriate mood and affect; insight and judgment normal. - Urinary Catheter Management Indwelling Urethral Catheter Cath placed during this visit: yes Reason for continuing: Acute urinary retention Insertion date: 06/07/18 Insertion time: 14:45 Results - Labs CBC & Chem 7: 06/09/18 06:35 06/09/18 06:35 Laboratory Results - last 24 hr 06/09/18 06/09/18 06/09/18 06:35 06:35 06:35 WBC 7.9 RBC 2.76 L Hgb 9.2 L D Hct 26.1 L MCV 94.5 MCH 33.5 MCHC 35.4 RDW 15.3 Plt Count 147 L MPV 8.4 Neut % (Auto) 83.6 H Lymph % (Auto) 5.6 L [place] % (Auto) 10.6 H Eos % (Auto) 0.0 Baso % (Auto) 0.2 Neut # (Auto) 6.6 Lymph # (Auto) 0.4 L [place] # (Auto) 0.8 Eos # (Auto) 0.0 Baso # (Auto) 0.0 WBC Differential . Differential Comment Auto diff final PT 30.0 H D INR 3.0 Sodium 125 L Potassium 4.1 Chloride 91 L Carbon Dioxide 28.3 Anion Gap 6 BUN 28 H Creatinine 0.67 Estimated GFR Greater than 89 Random Glucose 88 Calcium 9.0 Phosphorus 2.2 L Magnesium 1.7 Total Bilirubin 1.0 AST 28 ALT 26 Alkaline Phosphatase 61 Total Protein 6.0 L Albumin 2.9 L TSH 1.750 Free T4 1.29 Microbiology 06/07/18 17:25 Catheterized Urine Urine Culture - Preliminary No growth in 24 hours - Imaging ITS Impressions Ankle X-Ray 06/07/18 00:00 CONCLUSION: No evidence of recent bony injury. Femur X-Ray 06/07/18 00:00 CONCLUSION: No evidence of recent bony injury. Knee X-Ray 06/07/18 11:08 CONCLUSION: 1. Moderate sized suprapatellar effusion. 2. No acute fracture. - Procedures None Assessment and Plan - Plan 87-year-old white male being admitted for hyponatremia and intractable right knee pain Hyponatremia Possibly secondary to dehydration and/or medication side effect -check TSH Hold home HCTZ Status post IV bolus, recheck BMP tonight and in a.m., may administer IV fluids as appropriate Intractable right knee pain Secondary to contusion injury with effusion compounded with supratherapeutic INR -Ice pack, morphine, [place] is warranted R Foot pain and thigh pain Could be pain radiating but will obtain ankle and femur x-rays to rule out any other fractures -no Clinical evidence of cold foot or neurovascular compromise, has intact pulses WILL GET CT OF PELVIS DUE TO PAIN ON RIGHT SIDE A. fib Currently in normal sinus rhythm at this time, will RESTART warfarin check INR DAILY BPH Finasteride, Flomax -Likely has suffered an acute stretch injury, maintain Barnett for now Continue Barnett catheter as needed Recent UTI Patient was placed on Bactrim although he claims to be allergic to sulfa drugs , does not know the adverse reaction from sulfa drugs We will repeat UA and will hold off antibiotics if appears unremarkable Continue home lexapro for depression anxiety, Continue Lipitor for hypercholesterolemia, Vit D daily Supratherapeutic on warfarin- IMPROVED- WILL RESTART COUMADIN TODAY AT 3MG After indicated to having SCD on right lower extremity secondary to injury SP FALL WILL GET PT AND OT TO EVAL AND TREAT GI prophylaxis AM LABS Code Status: FULL CODE Discussed Condition With: RN AND PT Discharge Planning: WHEN PAIN CONTROLLED AND INR IS CLOSE TO THE THERAPEUTIC RANGE
[2018-06-09] MEDS: Sodium Chloride 1 GM Tablet PO SCH ×2 (12:21→17:32)
[2018-06-09 12:48] LABS: Hemoglobin A1c 5.2 % (4.3-6.0)
--- NOTE | 2018-06-09 20:22 | CT ---
EXAM DATE: 06/09/2018 8:07 PM EST AGE/SEX: 87 years / Male INDICATIONS: Right hip pain from fall yesterday. CLINICAL DATA: This is the patient's initial encounter. Patient reports that signs and symptoms have been present for 1 day and indicates a pain score of 10/10. MEDICAL/SURGICAL HISTORY: Cardiovascular disease. Cholecystectomy. Appendectomy. RADIATION DOSE: 31.86 CTDI (mGy) COMPARISON: [facility] [place] PELVIS W [place]AST, 03/11/2018. . TECHNIQUE: Multiple contiguous axial images were acquired using a multirow detector CT scanner withou t contrast and after intravenous administration of 95 ml Omnipaque 350 (iohexol) nonionic water-solu ble contrast as a single exam dose. Multiplanar reconstruction was performed in the sagittal and cor onal planes. Using automated exposure control and adjustment of the mA and/or kV according to patien t size, radiation dose was kept as low as reasonably achievable to obtain optimal diagnostic quality images. DICOM format image data is available electronically for review and comparison. FINDINGS: Small bilateral hip osteophytes. Minimal bilateral hip narrowing. No evidence of fracture. Bone alignment within normal limits. All of the visualized muscles are withi n normal limits. Barnett catheter in place. Air is seen within the urinary bladder. Diffuse urinary bladder wall thicken ing. No evidence of bowel dilatation. No enlarged lymph nodes. No free air or free fluid. CONCLUSION: 1. No evidence of fracture. 2. Minimal osteoarthritic findings of the hips. 3. Collapsed urinary bladder with Barnett catheter in place. Diffuse nonspecific urinary bladder wall thickening. Electronically signed by: Nakul Morris MD Board Certified Radiologist 06/09/2018 8:20 PM EST
[2018-06-09] MEDS: Sod Chloride 0.9% Inj 1,000 ML IV.CONT SCH (20:51)
[2018-06-10 05:47] LABS: Baso % (Auto) 0.2 % (0.0-2.0); Eos % (Auto) 0.1 % (0.0-4.0); Hematocrit 27.1 % (39.0-51.0); Hemoglobin 9.1 gm/dL (13.0-17.0); Lymph # (Auto) 0.3 th/mm3 (1.0-4.8); Lymph % (Auto) 3.6 % (9.0-44.0); Mean Corpuscular HGB Conc 33.8 % (32.0-36.0); Mean Corpuscular Volume 94.8 fL (80.0-100.0); Mean Platelet Volume 8.1 fL (7.0-11.0); Mono # (Auto) 0.5 th/mm3 (0.0-0.9); Mono % (Auto) 5.9 % (0.0-8.0); Neut # (Auto) 8.2 th/mm3 (1.8-7.7); Neut % (Auto) 90.2 % (16.0-70.0); Platelet Count 162 th/mm3 (150-450); Red Blood Count 2.86 mil/mm3 (4.50-5.90); Red Cell Distribution Width 15.8 % (11.6-17.2); White Blood Count 9.1 th/mm3 (4.0-11.0)
[2018-06-10 05:52] LABS: Prothrombin Time 20.7 sec (9.8-11.6)
[2018-06-10 06:09] LABS: Albumin 2.9 g/dL (3.4-5.0); Anion Gap 8 meq/L (5-15); Aspartate Aminotransferase 31 U/L (15-37); Blood Urea Nitrogen 30 mg/dL (7-18); Calcium 9.3 mg/dL (8.5-10.1); Carbon Dioxide 27.3 meq/L (21.0-32.0); Chloride 91 meq/L (98-107); Glomerular Filtration Rate Greater Than 89 mL/min (>89); Glucose,Random 99 mg/dL (74-106); Magnesium 1.7 mg/dL (1.5-2.5); Potassium 4.1 meq/L (3.5-5.1); Sodium 126 meq/L (136-145)
[2018-06-10 06:10] LABS: Alanine Aminotransferase 29 U/L (12-78)
[2018-06-10 06:13] LABS: Alkaline Phosphatase 85 U/L (45-117); Phosphorus 2.3 mg/dL (2.5-4.9); Total Protein 6.3 g/dL (6.4-8.2)
[2018-06-10] MEDS: Sodium Chloride 1 GM Tablet PO SCH ×3 (09:50→17:31)
[2018-06-10] MEDS: Escitalopram 10 MG Tablet PO SCH (09:51)
[2018-06-10] MEDS: Finasteride 5 MG Tablet PO SCH (09:51)
--- NOTE | 2018-06-10 09:51 | P.PN ---
Subjective Interval history: Follow up for hyponatremia, knee pain/effusion. The patient is seen with family at bedside. The patient reports continued generalized weakness and fatigue. He reports continued diffuse right knee pain with radiation into the thigh and down to the ankle. He also reports very limited ROM of the right knee. He states he is hardly able to bear any weight on the right leg. He also reports some lightheadedness, worse upon standing. He does not recall any history of hyponatremia. He reports a long history of anemia, has been evaluated as outpatient. He states he was on iron supplement at some point but it didn't help. He states his stool has been negative for blood on multiple checks. He states his doctor will not allow him to have a colonoscopy due to frailty/age. The patient reports he currently lives on the independent living side of [facility]. He uses a motorized scooter to get around, however lately he hasn't even been able to get himself out of bed. He states his goal is to get his strength back and become more independent again. He would like to look into possibly going to [facility], and would be open to other short term rehab facilities. He denies any other medical complaints. Discussed with family and RN. Physical Exam Vital signs: Vital Signs 06/09/18 12:00 06/09/18 16:00 06/09/18 20:00 Temperature 97.8 F 98.0 F 98 F Pulse Rate 73 72 77 Respiratory Rate 16 14 18 Blood Pressure 99/64 L 121/74 148/80 H Pulse Oximetry 94 L 97 95 06/10/18 00:00 06/10/18 03:55 06/10/18 04:00 Temperature 98.2 F 97.7 F Pulse Rate 72 75 83 Respiratory Rate 17 17 Blood Pressure 134/74 154/78 H Pulse Oximetry 93 L 93 L 06/10/18 08:00 Temperature 99.0 F Pulse Rate 80 Respiratory Rate 13 Blood Pressure 161/92 H Pulse Oximetry 93 L Intake & Output 06/09/18 06/10/18 06/10/18 18:59 06:59 18:59 Intake Total 480 / 480 1240 / 1240 Output Total 600 / 600 1200 / 1200 Balance -120 / -120 40 / 40 Weight 70 kg Intake: IV 1000 / 1000 NS Inj 1,000 ML @ 42 mls/hr IV. 1000 / 1000 CONT .[id number] [facility] Rx#:[id number] Oral 480 / 480 240 / 240 Output: Urine 600 / 600 1200 / 1200 Other: Date of Last Bowel Movement 06/07/18 Narrative: GENERAL: Well developed pleasant elderly male patient in NAD. SKIN: Warm and dry. HEENT: Atraumatic. Normocephalic. Pupils equal and round. Mucous membranes pink and moist. CARDIOVASCULAR: Irregular rate and rhythm. 2/6 systolic murmur noted. RESPIRATORY: No accessory muscle use. Clear to auscultation. Breath sounds equal bilaterally. GASTROINTESTINAL: Abdomen soft, non-tender, nondistended. Hepatic and splenic margins not palpable. MUSCULOSKELETAL: No obvious deformities. Right knee with diffuse edema and effusion worse over the suprapatellar region, no overlying warmth/erythema, diffusely tender to palpation with limited ROM. Distal RLE neurovascularly intact with 2+ pedal pulses. NEUROLOGICAL: Awake and alert. No obvious cranial nerve deficits. Motor grossly within normal limits. 5/5 strength BUE. 3/5 strength RLE secondary to pain, with right foot drop. 4/5 strength LLE. Normal speech. PSYCHIATRIC: Appropriate mood and affect; insight and judgment normal. - Urinary Catheter Management Indwelling Urethral Catheter Cath placed during this visit: yes Reason for continuing: Acute urinary retention Insertion date: 06/07/18 Insertion time: 14:45 Results - Labs CBC & Chem 7: 06/10/18 04:47 06/10/18 04:47 Laboratory Results - last 24 hr 06/09/18 06/10/18 06/10/18 06:35 04:47 04:47 WBC 9.1 RBC 2.86 L Hgb 9.1 L Hct 27.1 L MCV 94.8 MCH 32.0 MCHC 33.8 RDW 15.8 Plt Count 162 MPV 8.1 Neut % (Auto) 90.2 H Lymph % (Auto) 3.6 L [place] % (Auto) 5.9 Eos % (Auto) 0.1 Baso % (Auto) 0.2 Neut # (Auto) 8.2 H Lymph # (Auto) 0.3 L [place] # (Auto) 0.5 Eos # (Auto) 0.0 Baso # (Auto) 0.0 WBC Differential . Differential Comment Auto diff final PT 20.7 H INR 2.0 Sodium Potassium Chloride Carbon Dioxide Anion Gap BUN Creatinine Estimated GFR Random Glucose Hemoglobin A1c 5.2 Calcium Phosphorus Magnesium Total Bilirubin AST ALT Alkaline Phosphatase Total Protein Albumin 06/10/18 04:47 WBC RBC Hgb Hct MCV MCH MCHC RDW Plt Count MPV Neut % (Auto) Lymph % (Auto) [place] % (Auto) Eos % (Auto) Baso % (Auto) Neut # (Auto) Lymph # (Auto) [place] # (Auto) Eos # (Auto) Baso # (Auto) WBC Differential Differential Comment PT INR Sodium 126 L Potassium 4.1 Chloride 91 L Carbon Dioxide 27.3 Anion Gap 8 BUN 30 H Creatinine 0.63 Estimated GFR Greater than 89 Random Glucose 99 Hemoglobin A1c Calcium 9.3 Phosphorus 2.3 L Magnesium 1.7 Total Bilirubin 1.1 H AST 31 ALT 29 Alkaline Phosphatase 85 Total Protein 6.3 L Albumin 2.9 L Microbiology 06/07/18 17:25 Catheterized Urine Urine Culture - Final No growth in 48 hours - Imaging Impressions Hip CT 06/09/18 00:00 CONCLUSION: 1. No evidence of fracture. 2. Minimal osteoarthritic findings of the hips. 3. Collapsed urinary bladder with Barnett catheter in place. Diffuse nonspecific urinary bladder wall thickening. - Procedures None Assessment and Plan - Plan 87-year-old white male being admitted for hyponatremia and intractable right knee pain Acute Symptomatic Hyponatremia Possibly secondary to dehydration and/or medication side effect -TSH/T4 wnl Holding home HCTZ Status post IV bolus, now on IVF with NS @ 42cc/hr -Continue NaCl tablets 1gm tid -Continue to monitor BMP Intractable right knee pain with effusion -Secondary to contusion injury with effusion, compounded with supratherapeutic INR -Knee xray shows Moderate sized suprapatellar effusion. -Ice pack, morphine, [place] prn -PT consult, recommends rehab -Consider CT of R knee if no improvement -Also consider trial of steroids -Of note, patient had adverse reaction with [place], became very confused, and does not recall 1.5 days of hospitalization -patient to continue tylenol prn for now, will consider Ultracet if pain still uncontrolled R Foot pain and thigh pain -Suspect pain radiating but will obtain ankle and femur x-rays to rule out any other fractures -Ankle xray unremarkable, femur xray unremarkable, and Hip CT unremarkable except minimal osteoarthritic findings of the hips -no clinical evidence of neurovascular compromise, pulses intact -Continue PT/OT, recommending rehab A. 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 PT recommending rehab. The patient is interested in [facility]. Case management to assist with discharge planning.
[2018-06-10] MEDS: Budesonide-Formoterol 160/4.5 MCG 6 GM Inhaler INH SCH ×2 (09:52→22:15)
[2018-06-10] MEDS ORDERED: Warfarin Consult Pharmacy OTHER PRN (10:19)
[2018-06-10] MEDS: Polyethylene Glycol 3350 17 GM Packet PO SCH (12:33)
[2018-06-10 13:16] LABS: % Iron Saturation 8.8 % (20-50); Folate 11.3 ng/mL (3.1-17.5)
[2018-06-10] MEDS ORDERED: traMADol/Acetaminophen 37.5/325 MG Tablet PO PRN (16:54)
[2018-06-10] MEDS: Sod Chloride 0.9% Inj 1,000 ML IV.CONT SCH (22:15)
[2018-06-11 05:18] LABS: ABG Base Excess 2.3 mmol/L (-2-2); ABG PCO2 54 mmHg (38-42); ABG PO2 84 mmHg (61-120)
--- NOTE | 2018-06-11 05:59 | XR ---
EXAM DATE: 06/11/2018 5:44 AM EST AGE/SEX: 87 years / Male INDICATIONS: Short of breath, evaluate infiltrate CLINICAL DATA: This is the patient's subsequent encounter. Patient reports that signs and symptoms h ave been present for 3 days and indicates a pain score of 0/10. MEDICAL/SURGICAL HISTORY: Cardiovascular disease. Pacemaker. COMPARISON: No prior exams available for comparison. FINDINGS: A single AP view of the chest demonstrates bibasilar pulmonary consolidations. Small bilateral pleura l effusions left larger than right. Mild cardiomegaly. Pulmonary vascular engorgement noted. Left-brandin ed pacing device. CONCLUSION: Radiographic pattern suggesting bibasilar intra-alveolar pulmonary edema with small effusions. Electronically signed by: Mayito Jessica MD Board Certified Radiologist 06/11/2018 5:58 AM EST
[2018-06-11 06:43] LABS: Baso % (Auto) 0.3 % (0.0-2.0); Hematocrit 26.2 % (39.0-51.0); Lymph # (Auto) 0.2 th/mm3 (1.0-4.8); Lymph % (Auto) 1.8 % (9.0-44.0); Mean Corpuscular HGB Conc 34.3 % (32.0-36.0); Mean Corpuscular Hemoglobin 32.8 pg (27.0-34.0); Mean Corpuscular Volume 95.7 fL (80.0-100.0); Mean Platelet Volume 7.9 fL (7.0-11.0); Mono # (Auto) 0.6 th/mm3 (0.0-0.9); Neut # (Auto) 8.8 th/mm3 (1.8-7.7); Neut % (Auto) 91.9 % (16.0-70.0); Platelet Count 181 th/mm3 (150-450); Red Blood Count 2.74 mil/mm3 (4.50-5.90); Red Cell Distribution Width 15.8 % (11.6-17.2); White Blood Count 9.6 th/mm3 (4.0-11.0)
[2018-06-11 06:50] LABS: INR 2.6 Ratio; Prothrombin Time 25.9 sec (9.8-11.6)
[2018-06-11 07:08] LABS: Anion Gap 5 meq/L (5-15); Blood Urea Nitrogen 31 mg/dL (7-18); Carbon Dioxide 28.8 meq/L (21.0-32.0); Chloride 94 meq/L (98-107); Glomerular Filtration Rate Greater Than 89 mL/min (>89); Glucose,Random 137 mg/dL (74-106); Potassium 3.9 meq/L (3.5-5.1); Sodium 128 meq/L (136-145)
[2018-06-11] MEDS: Escitalopram 10 MG Tablet PO SCH (08:47)
[2018-06-11] MEDS: Budesonide-Formoterol 160/4.5 MCG 6 GM Inhaler INH SCH ×2 (08:48→22:14)
[2018-06-11] MEDS: Sodium Chloride 1 GM Tablet PO SCH ×3 (08:48→17:57)
[2018-06-11] MEDS: Polyethylene Glycol 3350 17 GM Packet PO SCH (08:48)
[2018-06-11] MEDS: Finasteride 5 MG Tablet PO SCH (08:48)
--- NOTE | 2018-06-11 11:20 | P.PNIM ---
Subjective Interval history: Follow-up respiratory distress. Patient states he is breathing better currently on 2 L. Patient received fluid bolus and started on IV hydration secondary to hyponatremia. He is lethargic but easily arousable oriented to person only. He insists he is in the basement. He is following simple commands. Seen with son. Physical Exam Vital signs: Last Vital Signs Temp 98.8 F 06/11/18 08:00 Pulse 75 06/11/18 09:00 Resp 22 06/11/18 08:00 BP 141/81 H 06/11/18 08:00 Pulse Ox 97 06/11/18 08:00 Intake & Output 06/09/18 06/10/18 06/11/18 06/12/18 06:59 06:59 06:59 06:59 Intake Total 1880 / 1880 1720 / 1720 1700 / 1700 Output Total 250 / 250 1800 / 1800 1100 / 1100 Balance 1630 / 1630 -80 / -80 600 / 600 Weight 71.2 kg 70 kg 70.8 kg Narrative: GENERAL: Well developed pleasant elderly male patient in [facility]. Patient taken off BiPAP currently on room air 92% SKIN: Warm and dry. CARDIOVASCULAR: Irregular rate and rhythm. 2/6 systolic murmur noted. RESPIRATORY: No accessory muscle use. Clear to auscultation. Breath sounds equal bilaterally. GASTROINTESTINAL: Abdomen soft, non-tender, nondistended. Hepatic and splenic margins not palpable. MUSCULOSKELETAL: No obvious deformities. Right knee with diffuse edema and effusion worse over the suprapatellar region, no overlying warmth/erythema, diffusely tender to palpation with limited ROM. Distal RLE neurovascularly intact with 2+ pedal pulses. NEUROLOGICAL: Lethargic easily arousable oriented to person only. No obvious cranial nerve deficits. Motor grossly within normal limits. 5/5 strength BUE. 3 /5 strength RLE secondary to pain, with right foot drop. 4/5 strength LLE. Normal speech. Urinary Catheter Management Indwelling Urethral Catheter: Cath placed during this visit: yes Urethral indwelling: Yes Reason for continuing: Decision to DC catheter Insertion date: 06/07/18 Insertion time: 14:45 Results Labs CBC & Chem 7: 06/11/18 06:30 06/11/18 06:30 Imaging Imaging: ITS Impressions Ankle X-Ray 06/07/18 00:00 CONCLUSION: No evidence of recent bony injury. Femur X-Ray 06/07/18 00:00 CONCLUSION: No evidence of recent bony injury. Knee X-Ray 06/07/18 11:08 CONCLUSION: 1. Moderate sized suprapatellar effusion. 2. No acute fracture. Hip CT 06/09/18 00:00 CONCLUSION: 1. No evidence of fracture. 2. Minimal osteoarthritic findings of the hips. 3. Collapsed urinary bladder with Barnett catheter in place. Diffuse nonspecific urinary bladder wall thickening. Chest X-Ray 06/11/18 05:04 CONCLUSION: Radiographic pattern suggesting bibasilar intra-alveolar pulmonary edema with small effusions. Procedures Procedures: None Assessment and Plan Plan 87-year-old white male being admitted for hyponatremia and intractable right knee pain Acute Symptomatic Hyponatremia Possibly secondary to dehydration and/or medication side effect -TSH/T4 wnl Holding home HCTZ Status post IV bolus, on IVF with NS @ 42cc/hr which has been discontinued secondary to respiratory distress with chest x-ray showing edema -Continue NaCl tablets 1gm tid -Continue to monitor BMP Encephalopathy secondary to meds versus hyponatremia versus hypercarbia versus constipation versus urinary retention versus hypophosphatemia. Improving we will continue to monitor off BiPAP. Consider head CT Respiratory distress secondary to edema. Discontinue IV hydration. Diuresis as needed. Obtain 2D echo Mildly elevated troponin secondary to respiratory distress/edema and encephalopathy. Denies chest pain. EKG with ventricular pacing. States he had negative stress tests few months ago. Intractable right knee pain with effusion -Secondary to contusion injury with effusion, compounded with supratherapeutic INR -Knee xray shows Moderate sized suprapatellar effusion. -Ice pack, morphine, [place] prn -PT consult, recommends rehab -CT of R knee -Also consider trial of steroids -Of note, patient had adverse reaction with [place], became very confused, and does not recall 1.5 days of hospitalization -patient to continue tylenol prn for now R Foot pain and thigh pain -Suspect radiculopathy -Ankle xray unremarkable, femur xray unremarkable, and Hip CT unremarkable except minimal osteoarthritic findings of the hips -no clinical evidence of neurovascular compromise, pulses intact -Continue PT/OT, recommending rehab A. fib, with supratherapeutic INR 5.7 -INR improved, continue patient's coumadin with pharmacy consult -Monitor daily INR BPH with urinary retention -Continue Finasteride, Flomax -Discontinue Barnett catheter and monitor Recent UTI -Patient was placed on Bactrim although he claims to be allergic to sulfa drugs , does not know the adverse reaction from sulfa drugs -Repeat UA negative for WBCs/leuks, will hold off on any further antibiotics follow-up urine culture Depression/Anxiety -Continue home lexapro Hypercholesterolemia -Continue Lipitor Vit D Deficiency -Continue cholecalciferol daily Chronic Normocytic Anemia -patient reports chronic hx of anemia, has been evaluated with negative hemoccults, previously on iron supplement with no improvement -Noted iron studies, ferritin, folate, B12 -monitor CBC Constipation -patient reports no BM in 4 days, although states he has chronic hx of constipation -give Miralax daily -monitor for BM DVT Prophylaxis: on Coumadin Discharge Planning: Continue to treat hyponatremia and knee pain. PT recommending rehab. The patient is interested in [facility]. Case management to assist with discharge planning. Progress Note: Quality VTE Deep Vein Thrombosis/Pulmonary Embolism Present on Admission: No
[2018-06-11] MEDS ORDERED: Acetaminophen 325 MG Tablet PO PRN (11:46)
[2018-06-11 13:51] LABS: Anion Gap 7 meq/L (5-15); Blood Urea Nitrogen 31 mg/dL (7-18); Calcium 9.5 mg/dL (8.5-10.1); Carbon Dioxide 29.4 meq/L (21.0-32.0); Chloride 95 meq/L (98-107); Glomerular Filtration Rate Greater Than 89 mL/min (>89); Glucose,Random 121 mg/dL (74-106); Potassium 4.1 meq/L (3.5-5.1); Sodium 131 meq/L (136-145)
--- NOTE | 2018-06-11 17:08 | ECHRPT ---
Indication: cardiomyopathy CONCLUSIONS The left ventricular systolic function is normal with an estimated ejection fraction in the range of 60-65%. Mild concentric left ventricular hypertrophy. No regional wall motion abnormalities are present. Trace mitral valve regurgitation. Trace aortic valve regurgitation. There is trace tricuspid valve regurgitation. A moderate left sided pleural effusion is noted. BP: / HR: Rhythm: MEASUREMENTS (Male / Female) Normal Values Technical Quality: 2D ECHO LV Diastolic Diameter PLAX 3.8 cm 4.2 - 5.9 / 3.9 - 5.3 cm LV Systolic Diameter PLAX 2.3 cm IVS Diastolic Thickness 1.4 cm 0.6 - 1.0 / 0.6 - 0.9 cm LVPW Diastolic Thickness 1.5 cm 0.6 - 1.0 / 0.6 - 0.9 cm LV Relative Wall Thickness 0.8 RV Internal Dim ED PLAX 3.0 cm LVOT Diameter 2.1 cm Aortic Root Diameter 2.7 cm LA Systolic Diameter LX 4.8 cm 3.0 - 4.0 / 2.7 - 3.8 cm M-MODE Aortic Root Diameter MM 2.6 cm LA Systolic Diameter MM 5.7 cm LA Ao Ratio MM 2.2 AV Cusp Separation MM 1.7 cm DOPPLER AV Peak Velocity 141.0 cm/s AV Peak Gradient 8.0 mmHg AV Mean Gradient 3.0 mmHg AV Velocity Time Integral 26.3 cm LVOT Peak Velocity 140.0 cm/s LVOT Peak Gradient 7.8 mmHg LVOT Velocity Time Integral 28.6 cm AV Area Cont Eq vti 3.8 cm AV Area Cont Eq pk 3.4 cm Mitral E Point Velocity 136.0 cm/s LV E' Lateral Velocity 9.7 cm/s Mitral E to LV E' Lateral Ratio 14.1 LV E' Septal Velocity 7.6 cm/s Mitral E to LV E' Septal Ratio 17.9 TR Peak Velocity 198.0 cm/s TR Peak Gradient 15.7 mmHg Right Atrial Pressure 10.0 mmHg Pulmonary Artery Systolic Pressu 25.7 mmHg Right Ventricular Systolic Press 25.7 mmHg PV Peak Velocity 128.0 cm/s PV Peak Gradient 6.6 mmHg FINDINGS LEFT VENTRICLE Normal left ventricular size. Mild concentric left ventricular hypertrophy. The left ventricular systolic function is normal with an estimated ejection fraction in the range of 60-65%. No regional wall motion abnormalities are present. RIGHT VENTRICLE Grossly normal LEFT ATRIUM The left atrial size is [id number] dilated. RIGHT ATRIUM The right atrial size is normal. ATRIAL SEPTUM Normal atrial septal thickness. AORTA The aortic root and proximal ascending aorta are normal in size on limited imaging. MITRAL VALVE Structurally normal mitral valve. Moderate mitral annular calcification. No mitral valve stenosis. Trace mitral valve regurgitation. AORTIC VALVE Diffuse calcification of the aortic valve. Trileaflet aortic valve. No aortic valve stenosis. Trace aortic valve regurgitation. TRICUSPID VALVE Grossly normal No tricuspid valve stenosis. There is trace tricuspid valve regurgitation. PERICARDIUM A moderate left sided pleural effusion is noted. Richard Hobbs DO (Electronically Signed) Final Date:11 June 2018 17:07
[2018-06-11 17:32] LABS: ABG Base Excess 2.8 mmol/L (-2-2); ABG PCO2 80 mmHg (38-42); ABG PO2 80 mmHG (61-120)
[2018-06-11 18:21] LABS: Anion Gap 5 meq/L (5-15); Blood Urea Nitrogen 34 mg/dL (7-18); Calcium 9.8 mg/dL (8.5-10.1); Carbon Dioxide 30.6 meq/L (21.0-32.0); Chloride 94 meq/L (98-107); Glomerular Filtration Rate Greater Than 89 mL/min (>89); Glucose,Random 151 mg/dL (74-106); Potassium 4.3 meq/L (3.5-5.1); Sodium 130 meq/L (136-145)
--- NOTE | 2018-06-11 20:54 | MB ---
cc: Hector Woody MD DATE: 06/11/2018 REQUESTING PHYSICIAN: Helio Finley MD REASON FOR CONSULTATION: Respiratory failure. HISTORY OF PRESENT ILLNESS: Mr. Miller is an 87-year-old male with history of atrial fibrillation, pacemaker placement. He lives in an independent living facility at [facility], but he was having some help, and family was planning to put him to assisted living facility. He came to the hospital after a fall when he misplaced and hit his foot. He had extreme pain in the knee, and he has prepatellar effusion. The patient admitted to the hospital. He was found to have hyponatremia. The patient this morning became more short of breath. He had a blood gas done, which shows that his pH is 7.20, pCO2 of 80, pO2 of 80, bicarbonate of 30 on BiPAP. The patient's son and [id number] are at the bedside. They have decided to make him DNR. They do not want him to be intubated. If he does not improve overnight, then they will consider hospice. PAST MEDICAL HISTORY: Significant for history of COPD, atrial fibrillation, history of hyponatremia, cholecystectomy, UTI, BPH, depression after his 's . MEDICATIONS: 1. He is taking milk of magnesia. 2. DuoNeb nebulizer treatment. 3. Lipitor 20 mg a day. 4. Symbicort 160/4.5 two puffs twice a day. 5. Proscar 5 mg. 6. Lexapro 10 mg. 7. Zofran p.r.n. 6. Coumadin 2.5 mg a day. ALLERGIES: HE IS ALLERGIC TO SULFA, ASPIRIN, MORPHINE. SOCIAL HISTORY: He is a , has history of smoking in the past. FAMILY HISTORY: He has 2 children, 1 son is at the bedside. Other one lives in [place]. REVIEW OF SYSTEMS: As per his son, he has been going downhill, was feeling depressed, and has lost the will to live, and he has expressed not to be prolonged. PHYSICAL EXAMINATION: GENERAL: Elderly male. He is on BiPAP and obtunded. VITAL SIGNS: His blood pressure is 148/84, heart rate 72, respirations 32, temperature 97.8. HEENT: Pupils reactive to light. NECK: Supple. JVP not raised. CHEST: Bilaterally equal air entry. Few rhonchi. HEART: S1, S2 normal. ABDOMEN: Soft, nondistended. Bowel sounds are present. EXTREMITIES: No edema. LABORATORY DATA: His WBC count is 9.6, hemoglobin 9.0, hematocrit 26.2, MCV 95, platelet count 181. Sodium 130, potassium 4.3, chloride 94, CO2 of 30, BUN 34, creatinine 0.53. IMPRESSION: 1. Hypercapnic respiratory failure. 2. Congestive heart failure. 3. Small pleural effusion. 4. Hyponatremia. 5. History of atrial flutter, status post pacemaker placement. 6. DO NOT RESUSCITATE. PLAN: I discussed with the patient, son, and [id number] at the bedside. The patient is now DNR. We will continue BiPAP. Continue aerosol treatment. If patient does not get better, they will decide for hospice. His overall prognosis is guarded. Further treatment on the hospital. Thank you, Dr. Finley, for this consult. MD IVAN Villalobos/erick , 07:57 PM , 08:07 PM
--- NOTE | 2018-06-11 21:02 | P.CONCC ---
History of Present Illness Primary Care Provider: Steven Milton DO History of Present Illness: 87-year-old male being admitted for hyponatremia. Patient was in his usual state of health until the day prior to admission as he was try to get off the toilet he fell as he was trying to get up off of it, misplaced his foot. He denies experiencing lightheadedness or chest pain surrounding the incident. Landed on his right knee. Has been taking Tylenol every 4 hours. Due to the persistent pain decided to come in the emergency department. He initially reported having worsening pain with weightbearing, had to call 911 to be transported to the hospital. Patient reports having a history of arthritis in both knees, used to get steroid shots in the right knee but says he was told it was rxtu-ub-oiev arthritis which would not respond to steroids. Denies having any arthroplasties or fracture repairs. In the emergency department plain film was obtained of the right knee which showed a prepatellar effusion, patient's INR was 4.7, has a history of A. fib for which he takes warfarin. Also has a pacemaker as well. His sales floor associate is Dr. Ramos. Patient noted to have a sodium of 123 in the emergency department, chronically his sodium fluctuates from 130-136. Apparently takes hydrochlorthiazide is at home blood pressure medication. We admitted to medicine, for IV fluid hydration and hyponatremia correction. However today in the afternoon he decompensated developing respiratory distress requiring placement of a BiPAP. Also his chest x-ray showed signs of fluid overload with pulmonary edema bilaterally. Patient has been transferred to ICU with critical care consultation in place. Review of Systems unobtainable due to mental status PMFSH - History History Provided By: Patient - Medical History Medical History: Medical History (Last Reviewed 06/11/18 @ 14:57 by Darlene Garcia) FH: cholecystectomy UTI (urinary tract infection) Afib BPH (benign prostatic hyperplasia) Depression Pacemaker - Surgical History Surgical History: Surgical History (Last Reviewed 06/11/18 @ 14:57 by Darlene Garcia) H/O hernia repair Hx of appendectomy Hx of colonoscopy - Family History Family History: Family History (Last Updated 06/07/18 @ 17:14 by Arnie Rodriguez MD) Other HTN (hypertension) - Tobacco History Second Hand Smoke Exposure: No Smoking Status: Former smoker - Alcohol History How Often Do You Have a Drink Containing Alcohol: Never - Substance Use History Substance History: No History of Abuse - Travel History Recent Travel in the [place] Within the Last 8 Weeks: No Recent Travel Out of the Country Within the Last 8 Weeks: No - Immunization History Tetanus Immunization: >5 Years Hx Influenza Vaccine This Season: Yes Medications and Allergies Active Medications: Active Medications Acetaminophen (Tylenol) 650 mg PO Q4H PRN PRN Reason: FEVER > 101 F Al Hydrox/Mg Hydrox/Simethicone (Mag-Al Plus Susp Liq) 30 ml PO Q6H PRN PRN Reason: DYSPEPSIA Al Hydroxide/Mg Hydroxide (Milk Of Magnesia Liq) 30 ml PO DAILY PRN PRN Reason: SEVERE CONSITIPATION Albuterol (Duoneb Neb (Prn)) 1 ampul NEB Q4HR NEB PRN PRN Reason: sob Last Admin: 06/11/18 04:36 Dose: 1 ampul Atorvastatin Calcium (Lipitor) 20 mg PO DAILY [facility] Last Admin: 06/11/18 08:47 Dose: Not Given Budesonide/Formoterol Fumarate (Symbicort 160/4.5 Mcg Inh) 2 puff INH Q12HR [facility] Last Admin: 06/11/18 08:48 Dose: Not Given Calcium Carbonate (Tums Chew) 1,000 mg CHEW TID PRN PRN Reason: DYSPEPSIA Docusate Sodium (Colace) 100 mg PO BID PRN PRN Reason: MILD CONSTIPATION Escitalopram Oxalate (Lexapro) 10 mg PO DAILY [facility] Last Admin: 06/11/18 08:47 Dose: Not Given Finasteride (Proscar) 5 mg PO DAILY [facility] Last Admin: 06/11/18 08:48 Dose: Not Given Ondansetron HCl (Zofran Inj) 4 mg IV.PUSH Q6H PRN PRN Reason: NAUSEA Pharmacy Profile Note (Coumadin Consult Pharmacy) 1 each OTHER UNSCH PRN PRN Reason: PHARMACY DOCUMENTATION Polyethylene Glycol (Miralax) 17 gm PO DAILY [facility] Last Admin: 06/11/18 08:48 Dose: Not Given Senna/Docusate Sodium (Emiliana-Colace) 1 tab PO BID PRN PRN Reason: MODERATE CONSTIPATION Sodium Chloride (Ns Flush) 2 ml IV.FLUSH BID [facility] Last Admin: 06/11/18 08:48 Dose: 2 ml Sodium Chloride (Ns Flush) 2 ml IV.FLUSH UNSCH PRN PRN Reason: FLUSH AFTER USING IV ACCESS Sodium Chloride (Sodium Chloride) 1 gm PO TID [facility] Last Admin: 06/11/18 17:57 Dose: Not Given Tamsulosin HCl (Flomax) 0.4 mg PO HS [facility] Last Admin: 06/10/18 22:15 Dose: 0.4 mg Vitamin D (Vitamin D3) 1,000 unit PO DAILY [facility] Last Admin: 06/11/18 08:49 Dose: Not Given Warfarin Sodium (Coumadin) 2.5 mg PO DAILY@1600 [facility] Last Admin: 06/11/18 17:57 Dose: Not Given Allergies Allergy/AdvReac Type Severity Reaction Status Date / Time Sulfa (Sulfonamide Allergy Severe RASH Verified 06/07/18 10:24 Antibiotics) aspirin AdvReac Severe STIOMACH Verified 06/07/18 10:24 PAIN morphine AdvReac Severe Hallucinati Verified 06/07/18 10:24 ons Home Medications Medication Instructions Recorded Confirmed Type atorvastatin 20 mg PO DAILY 06/07/18 06/07/18 History cholecalciferol (vitamin D3) 1,000 unit PO DAILY 06/07/18 06/07/18 History [Vitamin D3] escitalopram oxalate 10 mg PO DAILY 06/07/18 06/07/18 History finasteride 5 mg PO DAILY 06/07/18 06/07/18 History fluticasone-salmeterol [Advair 1 inh INHALATION Q12H 06/07/18 06/07/18 History Diskus] hydrochlorothiazide 12.5 mg PO DAILY 06/07/18 06/07/18 History sulfamethoxazole-trimethoprim 1 tab PO BID 06/07/18 06/07/18 History [Bactrim] warfarin 3 mg PO QTUTHSA 06/07/18 06/07/18 History warfarin 5 mg PO Q OTHER DAY 06/07/18 06/07/18 History Physical Exam Vital signs: Vital Signs 06/10/18 22:55 06/10/18 23:53 06/11/18 00:00 Temperature 97.8 F Pulse Rate 76 79 86 Respiratory Rate 16 17 Blood Pressure 159/90 H Pulse Oximetry 92 L 06/11/18 04:00 06/11/18 06:00 06/11/18 06:20 Temperature 97.8 F 98.3 F Pulse Rate 81 80 Respiratory Rate 19 20 Blood Pressure 157/86 H 152/88 H Pulse Oximetry 92 L 97 96 06/11/18 08:00 06/11/18 09:00 06/11/18 11:44 Temperature 98.8 F 98.4 F Pulse Rate 70 75 81 Respiratory Rate 22 20 Blood Pressure 141/81 H 139/79 Pulse Oximetry 97 93 L 06/11/18 12:00 06/11/18 16:00 06/11/18 18:33 Temperature 97.8 F Pulse Rate 73 75 Respiratory Rate 26 H Blood Pressure 148/84 H Pulse Oximetry 94 L 93 L 06/11/18 20:31 Temperature Pulse Rate Respiratory Rate Blood Pressure Pulse Oximetry 99 Intake & Output 06/11/18 06/11/18 06/12/18 06:59 18:59 06:59 Intake Total 1120 / 1120 1210 / 1210 Output Total 300 / 300 750 / 750 Balance 820 / 820 460 / 460 Weight 70.8 kg Intake: IV 1000 / 1000 1000 / 1000 NS Inj 1,000 ML @ 42 mls/hr IV. 1000 / 1000 1000 / 1000 CONT .[id number] [facility] Rx#:[id number] Oral 120 / 120 210 / 210 Output: Urine 300 / 300 Urine Amount (Catheter) 750 / 750 Indwelling Urethral Catheter 750 / 750 - Constitutional moderate distress - Routine HEENT Exam Head: Present: normocephalic Eye: Present: PERRL ENT: Present: mucous membranes moist - Routine Neck Exam Present: supple. Absent: JVD, carotid bruit - Routine Respiratory Exam Present: accessory muscle use, rales, rhonchi, crackles - Routine Cardiovascular Exam Present: tachycardia - Routine Abdominal Exam Present: soft, normoactive bowel sounds - Routine Extremities Exam Absent: cyanosis, clubbing - Routine Skin Exam Present: intact. Absent: cyanosis, erythema - Routine Neurological Exam Present: altered mental status, moving all extremities - Urinary Catheter Management Indwelling Urethral Catheter Cath placed during this visit: yes Urethral indwelling: Yes Reason for continuing: Decision to DC catheter Insertion date: 06/07/18 Insertion time: 14:45 Septic Shock Reassessment Septic shock perfusion: reassessment completed Assessment and Plan - Assessment and Plan Plan: Respiratory failure -Fluid overload -Gentle diuresis -Pulmonary edema on x-ray -Echo shows preserved EF 65% -Repeat CXR -Patient is DNR/DNI -BiPAP PRN to keep sats above 92 Acute Hyponatremia Possibly secondary to medication/hydrochlorothiazide -TSH/T4 within normal limits Holding home HCTZ -Continue NaCl tablets 1gm tid -Continue to monitor BMP Encephalopathy -secondary to hyponatremia -hypercarbia -Improving Intractable right knee pain with effusion -Secondary to contusion injury with effusion, compounded with supratherapeutic INR -Knee xray shows Moderate sized suprapatellar effusion. -Ice pack, -Pain medication -PT consult [place] fib -Supratherapeutic INR on admission and now improved -Continue Coumadin dosing per pharmacy BPH with urinary retention -Continue Finasteride, Flomax Depression/Anxiety -Continue home lexapro Hypercholesterolemia -Continue Lipitor Chronic Normocytic Anemia -Per chart review history of anemia - negative hemoccults - previously on iron supplement with no improvement -Monitor H&H and transfuse to keep hemoglobin above 7 Constipation -patient reports no BM in 4 days, although states he has chronic hx of constipation -give Miralax daily -monitor for BM DVT Prophylaxis -Coumadin -Regular diet 35 minutes of critical care
--- NOTE | 2018-06-11 21:11 | ECG ---
Date Performed: 06/10/2018 Time Performed: 21:41:09 PTAGE: 87 years EKG: ELECTRONIC VENTRICULAR PACEMAKER ABNORMAL RHYTHM ECG INTERPRETATION BASED ON A DEFAULT AGE OF 40 YEARS PREVIOUS TRACING : 08/10/2017 15.57 Since the previous tracing, no significant change not ed DOCTOR: Sandeep Calvin Interpretating Date/Time 06/11/2018 21:10:17
[2018-06-11] MEDS ORDERED: Morphine Inj 4 MG/ML Vial IV.PUSH ONE (21:45)
[2018-06-12] MEDS ORDERED: Chlorhexidine Gluconate 2% 1 Pack (2 Cloths) TOPICAL PRN (04:00)
[2018-06-12] MEDS: Chlorhexidine Gluconate 2% 1 Pack (2 Cloths) TOPICAL SCH (04:06)
[2018-06-12 06:17] LABS: INR 4.5 Ratio; Prothrombin Time 45.4 sec (9.8-11.6)
[2018-06-12 06:33] LABS: Anion Gap 7 meq/L (5-15); Blood Urea Nitrogen 34 mg/dL (7-18); Calcium 9.7 mg/dL (8.5-10.1); Carbon Dioxide 32.8 meq/L (21.0-32.0); Chloride 93 meq/L (98-107); Glomerular Filtration Rate Greater Than 89 mL/min (>89); Glucose,Random 116 mg/dL (74-106); Potassium 3.2 meq/L (3.5-5.1); Sodium 133 meq/L (136-145)
[2018-06-12] MEDS: Escitalopram 10 MG Tablet PO SCH (09:06)
[2018-06-12] MEDS: Polyethylene Glycol 3350 17 GM Packet PO SCH (09:07)
[2018-06-12] MEDS: Sodium Chloride 1 GM Tablet PO SCH ×3 (09:07→17:25)
[2018-06-12] MEDS: Budesonide-Formoterol 160/4.5 MCG 6 GM Inhaler INH SCH (09:07)
[2018-06-12] MEDS: Finasteride 5 MG Tablet PO SCH (09:07)
[2018-06-12] MEDS ORDERED: Magnesium Oxide 400 MG Tablet PO PRN (10:05)
[2018-06-12] MEDS ORDERED: Magnesium Sulfate Inj 2 GM in Sodium Chlor 0.9% Inj 96 ML IV.SIG PRN (10:05)
[2018-06-12] MEDS ORDERED: Potassium Chlor 20 mEq Premix 20 MEQ/100 ML PIGGYBACK IV.SIG PRN (10:05)
[2018-06-12] MEDS ORDERED: Potassium Phosphate Inj 30 MMOL in Sodium Chlor 0.9% Inj 250 ML IV.SIG PRN (10:05)
[2018-06-12] MEDS ORDERED: Potassium Phosphate 500 MG Soluble Tablet PO PRN ×2 (10:05)
[2018-06-12] MEDS ORDERED: Potassium Chloride 25 MEQ Effervescent Tablet PO PRN (10:05)
[2018-06-12] MEDS ORDERED: Sodium Phosphate Inj 30 MMOL in Sodium Chlor 0.9% Inj 250 ML IV.SIG PRN (10:05)
[2018-06-12] MEDS ORDERED: Magnesium Sulfate Inj 4 GM in Sodium Chlor 0.9% Inj 92 ML IV.SIG PRN (10:05)
[2018-06-12] MEDS ORDERED: Potassium Chlor 40 mEq Premix 40 MEQ/100 ML PIGGYBACK IV.SIG PRN ×2 (10:05)
[2018-06-12] MEDS: Potassium Chlor 20 mEq Premix 20 MEQ/100 ML PIGGYBACK IV.SIG PRN ×4 (10:30→17:30)
--- NOTE | 2018-06-12 10:56 | P.PNCC ---
Subjective Subjective Remarks/Hospital Course: 06/12: The patient remains lethargic on BiPAP currently. Overnight the patient was made DNR. Question with son at bedside, requesting palliative care/ possible hospice transition. Currently chest x-ray pending ABG pending rule out hypercarbia. Sodium level 134 today. Objective Vital Signs / I&O: Vital Signs 06/11/18 11:44 06/11/18 12:00 06/11/18 16:00 Temperature 98.4 F 97.8 F Pulse Rate 81 73 75 Respiratory Rate 20 26 H Blood Pressure 139/79 148/84 H Pulse Oximetry 93 L 94 L 06/11/18 18:33 06/11/18 19:19 06/11/18 20:00 Temperature 97.5 F L Pulse Rate 74 71 Respiratory Rate 42 H 66 H Blood Pressure Pulse Oximetry 93 L 96 98 06/11/18 20:31 06/11/18 21:00 06/11/18 21:01 Temperature Pulse Rate 69 69 Respiratory Rate 54 H 42 H Blood Pressure 151/71 H Pulse Oximetry 99 100 100 06/11/18 21:03 06/11/18 21:04 06/11/18 21:05 Temperature Pulse Rate 83 82 80 Respiratory Rate 41 H 36 H 35 H Blood Pressure 144/80 H 153/77 H 147/75 H Pulse Oximetry 100 100 100 06/11/18 21:06 06/11/18 22:00 06/11/18 22:10 Temperature Pulse Rate 80 70 69 Respiratory Rate 47 H 64 H 68 H Blood Pressure 153/74 H 143/67 H Pulse Oximetry 100 99 99 06/11/18 23:00 06/12/18 00:00 06/12/18 00:12 Temperature 98.6 F Pulse Rate 69 69 Respiratory Rate 69 H 71 H Blood Pressure 130/62 121/60 Pulse Oximetry 100 100 100 06/12/18 01:00 06/12/18 02:00 06/12/18 03:00 Temperature Pulse Rate 70 69 69 Respiratory Rate 38 H 46 H 49 H Blood Pressure 131/60 128/60 118/58 L Pulse Oximetry 99 98 98 06/12/18 04:00 06/12/18 05:00 06/12/18 07:25 Temperature 97.8 F Pulse Rate 72 69 Respiratory Rate 41 H 50 H Blood Pressure 122/60 110/55 L Pulse Oximetry 98 98 99 06/12/18 08:00 06/12/18 09:00 Temperature Pulse Rate 73 69 Respiratory Rate 43 H Blood Pressure 93/54 L Pulse Oximetry 98 Intake & Output 06/11/18 06/12/18 06/12/18 18:59 06:59 18:59 Intake Total 1210 / 1210 Output Total 750 / 750 500 / 500 Balance 460 / 460 -500 / -500 Weight 69.8 kg Intake: IV 1000 / 1000 NS Inj 1,000 ML @ 42 mls/hr IV. 1000 / 1000 CONT .[id number] [facility] Rx#:[id number] Oral 210 / 210 Output: Urine Amount (Catheter) 750 / 750 500 / 500 Condom 500 / 500 Indwelling Urethral Catheter 750 / 750 Result Diagrams: 06/11/18 06:30 06/12/18 05:38 Other Results: Laboratory Results WBC 9.6 th/mm3 (4.0-11.0) 06/11/18 06:30 RBC 2.74 mil/mm3 (4.50-5.90) L 06/11/18 06:30 Hgb 9.0 gm/dL (13.0-17.0) L 06/11/18 06:30 Hct 26.2 % (39.0-51.0) L 06/11/18 06:30 MCV 95.7 fL (80.0-100.0) 06/11/18 06:30 MCH 32.8 pg (27.0-34.0) 06/11/18 06:30 MCHC 34.3 % (32.0-36.0) 06/11/18 06:30 RDW 15.8 % (11.6-17.2) 06/11/18 06:30 Plt Count 181 th/mm3 (150-450) 06/11/18 06:30 MPV 7.9 fL (7.0-11.0) 06/11/18 06:30 Neut % (Auto) 91.9 % (16.0-70.0) H 06/11/18 06:30 Lymph % (Auto) 1.8 % (9.0-44.0) L 06/11/18 06:30 [place] % (Auto) 6.0 % (0.0-8.0) 06/11/18 06:30 Eos % (Auto) 0.0 % (0.0-4.0) 06/11/18 06:30 Baso % (Auto) 0.3 % (0.0-2.0) 06/11/18 06:30 Neut # (Auto) 8.8 th/mm3 (1.8-7.7) H 06/11/18 06:30 Lymph # (Auto) 0.2 th/mm3 (1.0-4.8) L 06/11/18 06:30 [place] # (Auto) 0.6 th/mm3 (0.0-0.9) 06/11/18 06:30 Eos # (Auto) 0.0 th/mm3 (0.0-0.4) 06/11/18 06:30 Baso # (Auto) 0.0 th/mm3 (0.0-0.2) 06/11/18 06:30 WBC Differential . 06/11/18 06:30 Differential Comment Auto diff final 06/11/18 06:30 PT 45.4 sec (9.8-11.6) H D 06/12/18 05:38 INR 4.5 Ratio 06/12/18 05:38 Puncture Site Right radial 06/11/18 17:26 Patient Temperature 98.6 06/11/18 17:26 O2 Saturation 90 % (90-100) 06/11/18 17:26 ABG pH 7.20 (7.380-7.420) L* 06/11/18 17:26 ABG pCO2 80 mmHg (38-42) H* 06/11/18 17:26 ABG pO2 80 mmHG (61-120) 06/11/18 17:26 ABG HCO3 30 mmol/L (22-26) H 06/11/18 17:26 ABG O2 Content 14.5 Vol % (12.0-20.0) 06/11/18 17:26 ABG Base Excess 2.8 mmol/L (-2-2) H 06/11/18 17:26 ABG Methemoglobin 1.5 % (0-2) 06/11/18 17:26 Shun Test Present 06/11/18 17:26 Hemoglobin 11.4 G/DL (12.0-16.0) L 06/11/18 17:26 Carboxyhemoglobin 0.8 % (0-4) 06/11/18 17:26 O2 Delivery Device Bipap 06/11/18 17:26 Liter Flow 6.00 L/M 06/11/18 05:04 Vent Setting Ipap10/[id number] 06/11/18 17:26 Inspired O2 45 % 06/11/18 17:26 Critical Value Yes 06/11/18 17:26 Sodium 133 meq/L (136-145) L 06/12/18 05:38 Potassium 3.2 meq/L (3.5-5.1) L D 06/12/18 05:38 Chloride 93 meq/L (98-107) L 06/12/18 05:38 Carbon Dioxide 32.8 meq/L (21.0-32.0) H 06/12/18 05:38 Anion Gap 7 meq/L (5-15) 06/12/18 05:38 BUN 34 mg/dL (7-18) H 06/12/18 05:38 Creatinine 0.59 mg/dL (0.60-1.30) L 06/12/18 05:38 Estimated GFR Greater than 89 mL/min (>89) 06/12/18 05:38 POC Glucose 166 mg/dl (68-110) H 06/11/18 18:37 Random Glucose 116 mg/dL (74-106) H 06/12/18 05:38 Hemoglobin A1c 5.2 % (4.3-6.0) 06/09/18 06:35 Uric Acid 3.0 mg/dl (2.6-7.2) 06/11/18 06:30 Calcium 9.7 mg/dL (8.5-10.1) 06/12/18 05:38 Phosphorus 3.0 mg/dL (2.5-4.9) 06/11/18 06:30 Magnesium 1.7 mg/dL (1.5-2.5) 06/10/18 04:47 Iron 17 mcg/dL (65-175) L 06/10/18 04:47 TIBC 193 mcg/dL (250-450) L 06/10/18 04:47 % Saturation 8.8 % (20-50) L 06/10/18 04:47 Ferritin 680 ng/mL (26-388) H 06/10/18 04:47 Total Bilirubin 1.1 mg/dL (0.2-1.0) H 06/10/18 04:47 AST 31 U/L (15-37) 06/10/18 04:47 ALT 29 U/L (12-78) 06/10/18 04:47 Alkaline Phosphatase 85 U/L (45-117) 06/10/18 04:47 Troponin I 0.15 ng/mL (0.02-0.05) H 06/11/18 06:30 Total Protein 6.3 g/dL (6.4-8.2) L 06/10/18 04:47 Albumin 2.9 g/dL (3.4-5.0) L 06/10/18 04:47 Vitamin B12 1198 pg/mL (193-986) H 06/10/18 04:47 Folate 11.3 ng/mL (3.1-17.5) 06/10/18 04:47 TSH 1.750 uIU/mL (0.358-3.740) 06/09/18 06:35 Free T4 1.29 ng/dL (0.76-1.46) 06/09/18 06:35 Urine Color Yellow (Yellw/Straw) 06/07/18 17:25 Urine Clarity Clear (Clear) 06/07/18 17:25 Urine pH 6.0 (5.0-8.5) 06/07/18 17:25 Ur Specific [place] 1.018 (1.002-1.035) 06/07/18 17:25 Urine Protein 30 mg/dL (Neg-Trace) H 06/07/18 17:25 Urine Glucose (UA) Negative mg/dL (Negative) 06/07/18 17:25 Urine Ketones 20 mg/dL (Negative) 06/07/18 17:25 Urine Occult Blood Moderate (Negative) H 06/07/18 17:25 Urine Nitrate Negative (Negative) 06/07/18 17:25 Urine Bilirubin Negative (Negative) 06/07/18 17:25 Urine Urobilinogen 4 or greater mg/dL (Less than 2) 06/07/18 17:25 Ur Leukocyte Esterase Negative (Negative) 06/07/18 17:25 Urine RBC 119 /hpf (0-3) H 06/07/18 17:25 Urine WBC 1 /hpf (0-5) 06/07/18 17:25 Ur Squamous Epith Cells <1 /hpf (0-5) 06/07/18 17:25 Urine Bacteria Occasional /hpf (None) H 06/07/18 17:25 Hyaline Casts 3 /lpf (0-3) 06/07/18 17:25 Urine Mucus Few /lpf (Occasional) H 06/07/18 17:25 Micro UA Comment Cath-culture ind 06/07/18 17:25 Ur Microscopic Review Not Reportable 06/07/18 17:25 Urine Culture Comments Cath-cult indicated 06/07/18 17:25 Nasal Screen MRSA (PCR) Not detected (Negative) 06/11/18 18:20 Impressions Ankle X-Ray 06/07/18 00:00 CONCLUSION: No evidence of recent bony injury. Femur X-Ray 06/07/18 00:00 CONCLUSION: No evidence of recent bony injury. Knee X-Ray 06/07/18 11:08 CONCLUSION: 1. Moderate sized suprapatellar effusion. 2. No acute fracture. Hip CT 06/09/18 00:00 CONCLUSION: 1. No evidence of fracture. 2. Minimal osteoarthritic findings of the hips. 3. Collapsed urinary bladder with Barnett catheter in place. Diffuse nonspecific urinary bladder wall thickening. Chest X-Ray 06/11/18 05:04 CONCLUSION: Radiographic pattern suggesting bibasilar intra-alveolar pulmonary edema with small effusions. Objective Remarks: GENERAL: This is a well-developed well-nourished elderly gentleman currently lethargic SKIN: Warm and dry. HEAD: Atraumatic. Normocephalic. EYES: Pupils equal and round. No scleral icterus. No injection or drainage. ENT: No nasal bleeding or discharge. Mucous membranes pink and moist. NECK: Trachea midline. No JVD. CARDIOVASCULAR: Normal rate, regular rhythm. RESPIRATORY: No accessory muscle use. Clear to auscultation. Breath sounds equal bilaterally. On BiPAP 18/5 .40% GASTROINTESTINAL: Abdomen soft, non-tender, nondistended. No guarding. MUSCULOSKELETAL: Extremities without clubbing, cyanosis, or edema. No obvious deformities. NEUROLOGICAL: Lethargic but arousable. No gross focal/sensory deficits. Follows commands in all 4 extremities. Assessment and Plan - Assessment and Plan Plan: Respiratory failure -Fluid overload -Gentle diuresis -06/11 Pulmonary edema on x-ray -Follow-up repeat chest x-ray this a.m. -Echo shows preserved EF 65% -Patient is DNR/DNI -BiPAP PRN to keep sats above 92 Acute Hyponatremia Possibly secondary to medication/hydrochlorothiazide -TSH/T4 within normal limits Holding home HCTZ -Continue NaCl tablets 1gm tid-currently on hold secondary to extreme lethargy. Sodium level 133 -Continue to monitor BMP Encephalopathy -secondary to hyponatremia -hypercarbia -Improving -Follow-up repeat ABG Intractable right knee pain with effusion -Secondary to contusion injury with effusion, compounded with supratherapeutic INR -Knee xray shows Moderate sized suprapatellar effusion. -Ice pack, -Pain medication -PT consult A. fib -Supratherapeutic INR on admission and now improved -Continue Coumadin dosing per pharmacy BPH with urinary retention -Continue Finasteride, Flomax Depression/Anxiety -Continue home lexapro Hypercholesterolemia -Continue Lipitor Chronic Normocytic Anemia -Per chart review history of anemia - negative hemoccult - previously on iron supplement with no improvement -Monitor H&H and transfuse to keep hemoglobin above 7 Constipation -patient reports no BM in 4 days, although states he has chronic hx of constipation -give Miralax daily -monitor for BM -Maintain n.p.o. secondary to lethargy DVT Prophylaxis -Coumadin Discussion with son no aggressive measures requested. Son/family considering hospice care at this time. Palliative care has been consulted hospice has been consulted. Possible transition to hospice today upon clarification of goals. Level 3 follow-up Code Status: DNR Discussed Condition With: Patient's son, and [employer] at bedside
[2018-06-12 11:02] LABS: ABG Base Excess 9.7 mmol/L (-2-2); ABG PCO2 67 mmHg (38-42); ABG PO2 135 mmHG (61-120)
--- NOTE | 2018-06-12 11:19 | XR ---
EXAM DATE: 06/12/2018 11:15 AM EST AGE/SEX: 87 years / Male INDICATIONS: Respiratory Failure. CLINICAL DATA: This is the patient's subsequent encounter. Patient reports that signs and symptoms h ave been present for 1 week and indicates a pain score of Nonresponsive. MEDICAL/SURGICAL HISTORY: . Cardiovascular disease. Skin cancer Pacemaker. COMPARISON: [facility] [place], CHEST 1V SINGLE AP, 06/11/2018. . FINDINGS: Left lung base opacity is present may be due to a combination of consolidation and or pleu ral effusion. Mild case of pulmonary edema is also suspected not significantly changed. CONCLUSION: No appreciable change. Electronically signed by: Hussain Webster MD Board Certified Radiologist 06/12/2018 11:17 AM EST
--- NOTE | 2018-06-12 11:50 | P.CONPAL ---
Consult Service: Palliative Care Requesting Physician: Faith Goodwin Reason for Consult: a. To assist with evaluation and management of symptoms including: dyspnea, pain b. To assist medical decision maker(s) with: better understanding of current medical conditions; weighing benefits/burdens of medical treatment options; making medical treatment decisions. Primary Care Provider: Steven Milton DO History of Present Illness History of Present Illness: Mr. Miller is an 87-year-old male patient who presented to [place] ED on 2018 with complaints of right knee pain after a fall the day before. Patient reported he lost his balance and fell while getting off of the toilet. He was having difficulty ambulating and the pain in the right knee was rated 10 out of 10. Patient denied hitting his head; denied LOC. Of note, patient reportedly has a history of arthritis in both knees. Patient was receiving steroid injections in the right knee but stopped when he was told he had [id number] arthritis in the right knee and steroids would not be beneficial. Patient denied any history of arthroplasties or fracture repairs. Diagnostic data: * Vital signs: Pulse 84, respirations 18, BP 132/98, oxygen saturation 95% on room air * WBC: 8.1, hemoglobin 11.8, hematocrit 33.1, platelets 209, neutrophils 82.9% * PT: 47.0, INR 4.7 * Sodium: 123, potassium 4.2, chloride 86, carbon dioxide 28.6, glucose 81, calcium 9.1 * BUN: 16, creatinine 0.70, GFR >89 * Urinalysis consistent with UTI; urine culture was negative at 48 hours * X-ray right femur showed no evidence of recent bony injury * Complete x-ray of the right knee showed no acute fracture; moderate sized suprapatellar effusion. Patient was admitted with intractable knee pain and hyponatremia. He had ongoing right lower extremity pain. CT right hip on 06/09/2018 showed no evidence of fracture; minimal osteoarthritic findings of the hips. Collapsed urinary bladder with Barnett catheter in place. Diffuse nonspecific urinary bladder wall thickening. Respiratory status deteriorated on 06/11/2017 requiring placement of BiPAP. Pulmonology was consulted. Patient's son and [id number] were at bedside; they stated they would not want the patient intubated if his condition were to further deteriorate. They asked that the patient's CODE STATUS be changed to NO CODE. Chest x-ray showed signs of fluid overload with bilateral pulmonary edema. The patient was transferred to the intensive care unit and critical care was consulted. An echocardiogram on 06/11/2018 showed normal left ventricular systolic function with an estimated EF of 60-65%. Chest x-ray suggesting bibasilar intra- alveolar pulmonary edema with small effusions. Patient remains on BiPAP this morning in the intensive care unit. A follow-up chest x-ray this morning showed no appreciable improvement. Palliative Care was consulted to assist with symptom management and to discuss with the family the benefits and burdens of his current illnesses and the options regarding future care. Function/Cognitive Trajectory: Patient was living alone until 6 months ago when he moved into independent living facility, [facility]. The patient's son states his father has been going downhill since his mother in November,. Patient has had 3 reported falls in the past month. He owns a motorized wheelchair, 4 wheeled walker and an elevated toilet seat. He has private caregivers 4 hours/day, 6 days weekly. Patient's son does not believe that his father ever completed written advanced directives, however throughout his life the patient had expressed on multiple occasions that he would not want his life to be prolonged artificially. Review of Systems Constitutional: Reports weight loss Gastrointestinal: Reports change in stools (Constipation versus diarrhea) Musculoskeletal: Reports decreased muscle mass, Reports joint pain (Bilateral knee pain; right < left), Reports muscle weakness, Reports other (Right lower extremity pain) Skin/Breast: Reports other Neurologic: Reports frequent falls (3 reported falls in the past month), Reports unsteadiness Psychiatric: Reports anxiety PMFSH - History History Provided By: Patient - Medical History Medical History: Medical History (Last Updated 06/12/18 @ 11:14 by YOSELIN Dai) COPD (chronic obstructive pulmonary disease) Coronary artery disease GERD (gastroesophageal reflux disease) Hyperlipidemia Presence of combination internal cardiac defibrillator (ICD) and pacemaker UTI (urinary tract infection) Afib BPH (benign prostatic hyperplasia) Depression - Surgical History Surgical History: Surgical History (Last Updated 06/12/18 @ 11:15 by YOSELIN Dai) H/O hernia repair History of bladder surgery History of cholecystectomy Hx of appendectomy Hx of colonoscopy - Family History Family History: Family History (Last Updated 06/12/18 @ 11:12 by YOSELIN Dai) Father Myocardial infarction Other HTN (hypertension) - Tobacco History Second Hand Smoke Exposure: No Smoking Status: Former smoker (Quit smoking approximately 50 years ago) - Alcohol History How Often Do You Have a Drink Containing Alcohol: 4 or more times a week - Substance Use History Substance History: No History of Abuse - Travel History Recent Travel in the [place] Within the Last 8 Weeks: No Recent Travel Out of the Country Within the Last 8 Weeks: No - Immunization History Tetanus Immunization: >5 Years Hx Influenza Vaccine This Season: Yes Medications and Allergies Active Medications: Active Medications Acetaminophen (Tylenol) 650 mg PO Q4H PRN PRN Reason: FEVER > 101 F Al Hydrox/Mg Hydrox/Simethicone (Mag-Al Plus Susp Liq) 30 ml PO Q6H PRN PRN Reason: DYSPEPSIA Al Hydroxide/Mg Hydroxide (Milk Of Magnesia Liq) 30 ml PO DAILY PRN PRN Reason: SEVERE CONSITIPATION Albuterol (Duoneb Neb (Prn)) 1 ampul NEB Q4HR NEB PRN PRN Reason: sob Last Admin: 06/11/18 04:36 Dose: 1 ampul Atorvastatin Calcium (Lipitor) 20 mg PO DAILY [facility] Last Admin: 06/12/18 09:06 Dose: Not Given Budesonide/Formoterol Fumarate (Symbicort 160/4.5 Mcg Inh) 2 puff INH Q12HR [facility] Last Admin: 06/12/18 09:07 Dose: Not Given Calcium Carbonate (Tums Chew) 1,000 mg CHEW TID PRN PRN Reason: DYSPEPSIA Chlorhexidine Gluconate (Chlorhexidine 2% Cloth) 3 pack TOPICAL DAILY@0400 [facility] Stop: 06/17/18 03:59 Last Admin: 06/12/18 04:06 Dose: 3 pack Chlorhexidine Gluconate (Chlorhexidine 2% Cloth) 3 pack TOPICAL DAILY@0400 PRN PRN Reason: Extra cloth needed Stop: 06/17/18 03:59 Docusate Sodium (Colace) 100 mg PO BID PRN PRN Reason: MILD CONSTIPATION Escitalopram Oxalate (Lexapro) 10 mg PO DAILY [facility] Last Admin: 06/12/18 09:06 Dose: Not Given Finasteride (Proscar) 5 mg PO DAILY [facility] Last Admin: 06/12/18 09:07 Dose: Not Given Magnesium Sulfate 4 gm/ Sodium (Chloride) 100 mls @ 50 mls/hr IV.SIG UNSCH PRN PRN Reason: For Magnesium 0.9 - 1.1 mg/dL Magnesium Sulfate 2 gm/ Sodium (Chloride) 100 mls @ 50 mls/hr IV.SIG UNSCH PRN PRN Reason: For Magnesium 1.2 - 1.6 mg/dL Potassium Chloride (Kcl 40 Meq Premix Inj) 40 meq in 100 mls @ 25 mls/hr IV.SIG Q2H PRN PRN Reason: For Potassium 2.8 - 3.2 mEq/L Potassium Chloride (Kcl 40 Meq Premix Inj) 40 meq in 100 mls @ 25 mls/hr IV.SIG UNSCH PRN PRN Reason: For Potassium 3.3 - 3.5 mEq/L Potassium Chloride (Kcl 20 Meq Premix Inj) 20 meq in 100 mls @ 50 mls/hr IV.SIG Q2H PRN PRN Reason: For Potassium 2.8 - 3.2 mEq/L Sodium Phosphate 30 mmol/ (Sodium Chloride) 260 mls @ 42 mls/hr IV.SIG UNSCH PRN PRN Reason: For Phosphorus < 2.5 mg/dL Potassium Chloride (Kcl 20 Meq Premix Inj) 20 meq in 100 mls @ 50 mls/hr IV.SIG Q2H PRN PRN Reason: For Potassium 3.3 - 3.5 mEq/L Potassium Phosphate 30 mmol/ (Sodium Chloride) 260 mls @ 42 mls/hr IV.SIG UNSCH PRN PRN Reason: SEE LABEL COMMENTS Magnesium Oxide (Mag-Ox) 800 mg PO UNSCH PRN PRN Reason: For Magnesium 1.2 - 1.6 mg/dL Ondansetron HCl (Zofran Inj) 4 mg IV.PUSH Q6H PRN PRN Reason: NAUSEA Pharmacy Profile Note (Coumadin Consult Pharmacy) 1 each OTHER UNSCH PRN PRN Reason: PHARMACY DOCUMENTATION Polyethylene Glycol (Miralax) 17 gm PO DAILY [facility] Last Admin: 06/12/18 09:07 Dose: Not Given Potassium Bicarb/Potassium Chloride (K-Lyte Cl Eff) 50 meq PO UNSCH PRN PRN Reason: For Potassium 3.3 - 3.5 mEq/L Potassium Phosphate (K-Phos Original) 2,000 mg PO Q4H PRN PRN Reason: Phosphorus Less Than 2.5 mg/dL Potassium Phosphate (K-Phos Original) 2,000 mg PO UNSCH PRN PRN Reason: SEE LABEL COMMENTS Senna/Docusate Sodium (Emiliana-Colace) 1 tab PO BID PRN PRN Reason: MODERATE CONSTIPATION Sodium Chloride (Ns Flush) 2 ml IV.FLUSH BID [facility] Last Admin: 06/12/18 09:06 Dose: 2 ml Sodium Chloride (Ns Flush) 2 ml IV.FLUSH UNSCH PRN PRN Reason: FLUSH AFTER USING IV ACCESS Sodium Chloride (Sodium Chloride) 1 gm PO TID [facility] Last Admin: 06/12/18 09:07 Dose: Not Given Tamsulosin HCl (Flomax) 0.4 mg PO HS [facility] Last Admin: 06/11/18 22:12 Dose: Not Given Vitamin D (Vitamin D3) 1,000 unit PO DAILY [facility] Last Admin: 06/12/18 09:07 Dose: Not Given Warfarin Sodium (Coumadin) 2.5 mg PO DAILY@1600 [facility] Allergies Allergy/AdvReac Type Severity Reaction Status Date / Time Sulfa (Sulfonamide Allergy Severe RASH Verified 06/07/18 10:24 Antibiotics) aspirin AdvReac Severe STIOMACH Verified 06/07/18 10:24 PAIN morphine AdvReac Severe Hallucinati Verified 06/07/18 10:24 ons Home Medications Medication Instructions Recorded Confirmed Type atorvastatin 20 mg PO DAILY 06/07/18 06/07/18 History cholecalciferol (vitamin D3) 1,000 unit PO DAILY 06/07/18 06/07/18 History [Vitamin D3] escitalopram oxalate 10 mg PO DAILY 06/07/18 06/07/18 History finasteride 5 mg PO DAILY 06/07/18 06/07/18 History fluticasone-salmeterol [Advair 1 inh INHALATION Q12H 06/07/18 06/07/18 History Diskus] hydrochlorothiazide 12.5 mg PO DAILY 06/07/18 06/07/18 History sulfamethoxazole-trimethoprim 1 tab PO BID 06/07/18 06/07/18 History [Bactrim] warfarin 3 mg PO QTUTHSA 06/07/18 06/07/18 History warfarin 5 mg PO Q OTHER DAY 06/07/18 06/07/18 History Advance Directives Family/friends goals: Patient's children would like to honor patient's previously verbalized wishes and transition to hospice services for end-of-life care and symptom management of dyspnea and pain. Son, Jose Angel, will be flying in from [place] tomorrow 2018. They would like to transition to hospice services after Jose Angel arrival to [place]. Ethical and Legal Issues: Per [place] statutes, in the absence of written advanced directives healthcare proxy decision making falls to the patient's 2 adult sons (Jin and Jose Angel). Physical Exam Vital Signs: Vital Signs - 24 hr 06/11/18 11:44 06/11/18 12:00 06/11/18 16:00 Temperature 98.4 F 97.8 F Pulse Rate 81 73 75 Respiratory Rate 20 26 H Blood Pressure 139/79 148/84 H Pulse Oximetry 93 L 94 L 06/11/18 18:33 06/11/18 19:19 06/11/18 20:00 Temperature 97.5 F L Pulse Rate 74 71 Respiratory Rate 42 H 66 H Blood Pressure Pulse Oximetry 93 L 96 98 06/11/18 20:31 06/11/18 21:00 06/11/18 21:01 Temperature Pulse Rate 69 69 Respiratory Rate 54 H 42 H Blood Pressure 151/71 H Pulse Oximetry 99 100 100 06/11/18 21:03 06/11/18 21:04 06/11/18 21:05 Temperature Pulse Rate 83 82 80 Respiratory Rate 41 H 36 H 35 H Blood Pressure 144/80 H 153/77 H 147/75 H Pulse Oximetry 100 100 100 06/11/18 21:06 06/11/18 22:00 06/11/18 22:10 Temperature Pulse Rate 80 70 69 Respiratory Rate 47 H 64 H 68 H Blood Pressure 153/74 H 143/67 H Pulse Oximetry 100 99 99 06/11/18 23:00 06/12/18 00:00 06/12/18 00:12 Temperature 98.6 F Pulse Rate 69 69 Respiratory Rate 69 H 71 H Blood Pressure 130/62 121/60 Pulse Oximetry 100 100 100 06/12/18 01:00 06/12/18 02:00 06/12/18 03:00 Temperature Pulse Rate 70 69 69 Respiratory Rate 38 H 46 H 49 H Blood Pressure 131/60 128/60 118/58 L Pulse Oximetry 99 98 98 06/12/18 04:00 06/12/18 05:00 06/12/18 07:25 Temperature 97.8 F Pulse Rate 72 69 Respiratory Rate 41 H 50 H Blood Pressure 122/60 110/55 L Pulse Oximetry 98 98 99 06/12/18 08:00 06/12/18 09:00 Temperature Pulse Rate 73 69 Respiratory Rate 43 H Blood Pressure 93/54 L Pulse Oximetry 98 I&O: Intake & Output 06/10/18 06/11/18 06/12/18 06/13/18 06:59 06:59 06:59 06:59 Intake Total 1720 / 1720 1700 / 1700 1210 / 1210 Output Total 1800 / 1800 1100 / 1100 1250 / 1250 Balance -80 / -80 600 / 600 -40 / -40 Weight 70 kg 70.8 kg 69.8 kg Physical Exam: CONSTITUTIONAL/GENERAL: This is a frail elderly male patient who appears uncomfortable on BiPAP TUBES/LINES/DRAINS: BiPAP, PIV, condom catheter SKIN: No jaundice, rashes, or lesions. Ecchymoses on upper extremities. No wounds seen anteriorly. Skin temperature appropriate. Not diaphoretic. HEAD: Atraumatic. Normocephalic. EYES: Pupils equal and round and reactive. No scleral icterus. No injection or drainage. Fundi not examined. ENT: Hearing grossly normal. Nose without bleeding or purulent drainage. NECK: Trachea midline. Supple, nontender. No palpable thyroid enlargement or nodularity. CARDIOVASCULAR: Regular rate and rhythm without murmurs, gallops, or rubs. No JVD. Peripheral pulses symmetric. RESPIRATORY/CHEST: Tachypneic on BiPAP. 15/5; 50% FiO2. No wheezes, rales, or rhonchi. GASTROINTESTINAL: Abdomen soft, non-tender, nondistended. No hepato-splenomegaly , or palpable masses. No guarding. Bowel sounds present. GENITOURINARY: Without palpable bladder distension. Condom catheter in place MUSCULOSKELETAL: Extremities without clubbing or cyanosis. Muscle wasting in extremities as well as the temporal region. Trace pedal edema in right foot LYMPHATICS: No palpable cervical or supraclavicular adenopathy. NEUROLOGICAL: Awake. Nods and shakes his head to some yes/no questions.unable to make needs known PSYCHIATRIC: No obvious anxiety/depression. No apparent hallucinations or other psychotic thought process. Diagnostic Tests Laboratory: Laboratory Results - last 72 hr 06/09/18 06/10/18 06/10/18 06:35 04:47 04:47 WBC 9.1 RBC 2.86 L Hgb 9.1 L Hct 27.1 L MCV 94.8 MCH 32.0 MCHC 33.8 RDW 15.8 Plt Count 162 MPV 8.1 Neut % (Auto) 90.2 H Lymph % (Auto) 3.6 L Clare % (Auto) 5.9 Eos % (Auto) 0.1 Baso % (Auto) 0.2 Neut # (Auto) 8.2 H Lymph # (Auto) 0.3 L Clare # (Auto) 0.5 Eos # (Auto) 0.0 Baso # (Auto) 0.0 WBC Differential . Differential Comment Auto diff final PT 20.7 H INR 2.0 Puncture Site Patient Temperature O2 Saturation ABG pH ABG pCO2 ABG pO2 ABG HCO3 ABG O2 Content ABG Base Excess ABG Methemoglobin Shun Test Hemoglobin Carboxyhemoglobin O2 Delivery Device Liter Flow Vent Setting Inspired O2 Critical Value Sodium Potassium Chloride Carbon Dioxide Anion Gap BUN Creatinine Estimated GFR POC Glucose Random Glucose Hemoglobin A1c 5.2 Uric Acid Calcium Phosphorus Magnesium Iron TIBC % Saturation Ferritin Total Bilirubin AST ALT Alkaline Phosphatase Troponin I Total Protein Albumin Vitamin B12 Folate Nasal Screen MRSA (PCR) 06/10/18 06/10/18 06/10/18 04:47 04:47 23:09 WBC RBC Hgb Hct MCV MCH MCHC RDW Plt Count MPV Neut % (Auto) Lymph % (Auto) Clare % (Auto) Eos % (Auto) Baso % (Auto) Neut # (Auto) Lymph # (Auto) Clare # (Auto) Eos # (Auto) Baso # (Auto) WBC Differential Differential Comment PT INR Puncture Site Patient Temperature O2 Saturation ABG pH ABG pCO2 ABG pO2 ABG HCO3 ABG O2 Content ABG Base Excess ABG Methemoglobin Shun Test Hemoglobin Carboxyhemoglobin O2 Delivery Device Liter Flow Vent Setting Inspired O2 Critical Value Sodium 126 L Potassium 4.1 Chloride 91 L Carbon Dioxide 27.3 Anion Gap 8 BUN 30 H Creatinine 0.63 Estimated GFR Greater than 89 POC Glucose Random Glucose 99 Hemoglobin A1c Uric Acid Calcium 9.3 Phosphorus 2.3 L Magnesium 1.7 Iron 17 L TIBC 193 L % Saturation 8.8 L Ferritin 680 H Total Bilirubin 1.1 H AST 31 ALT 29 Alkaline Phosphatase 85 Troponin I 0.08 H Total Protein 6.3 L Albumin 2.9 L Vitamin B12 1198 H Folate 11.3 Nasal Screen MRSA (PCR) 06/11/18 06/11/18 06/11/18 05:04 05:30 06:30 WBC RBC Hgb Hct MCV MCH MCHC RDW Plt Count MPV Neut % (Auto) Lymph % (Auto) Clare % (Auto) Eos % (Auto) Baso % (Auto) Neut # (Auto) Lymph # (Auto) Clare # (Auto) Eos # (Auto) Baso # (Auto) WBC Differential Differential Comment PT 25.9 H INR 2.6 Puncture Site Left radial Patient Temperature 98.6 O2 Saturation 93 ABG pH 7.33 L ABG pCO2 54 H* ABG pO2 84 ABG HCO3 28 H ABG O2 Content 11.4 L ABG Base Excess 2.3 H ABG Methemoglobin 1.2 Shun Test Present Hemoglobin 8.6 L Carboxyhemoglobin 1.6 O2 Delivery Device Nasal cannula Liter Flow 6.00 Vent Setting Inspired O2 Critical Value Yes Sodium Potassium Chloride Carbon Dioxide Anion Gap BUN Creatinine Estimated GFR POC Glucose 153 H Random Glucose Hemoglobin A1c Uric Acid Calcium Phosphorus Magnesium Iron TIBC % Saturation Ferritin Total Bilirubin AST ALT Alkaline Phosphatase Troponin I Total Protein Albumin Vitamin B12 Folate Nasal Screen MRSA (PCR) 06/11/18 06/11/18 06/11/18 06:30 06:30 06:30 WBC 9.6 RBC 2.74 L Hgb 9.0 L Hct 26.2 L MCV 95.7 MCH 32.8 MCHC 34.3 RDW 15.8 Plt Count 181 MPV 7.9 Neut % (Auto) 91.9 H Lymph % (Auto) 1.8 L Clare % (Auto) 6.0 Eos % (Auto) 0.0 Baso % (Auto) 0.3 Neut # (Auto) 8.8 H Lymph # (Auto) 0.2 L Clare # (Auto) 0.6 Eos # (Auto) 0.0 Baso # (Auto) 0.0 WBC Differential . Differential Comment Auto diff final PT INR Puncture Site Patient Temperature O2 Saturation ABG pH ABG pCO2 ABG pO2 ABG HCO3 ABG O2 Content ABG Base Excess ABG Methemoglobin Shun Test Hemoglobin Carboxyhemoglobin O2 Delivery Device Liter Flow Vent Setting Inspired O2 Critical Value Sodium 128 L Potassium 3.9 Chloride 94 L Carbon Dioxide 28.8 Anion Gap 5 BUN 31 H Creatinine 0.64 Estimated GFR Greater than 89 POC Glucose Random Glucose 137 H Hemoglobin A1c Uric Acid Calcium 9.0 Phosphorus Magnesium Iron TIBC % Saturation Ferritin Total Bilirubin AST ALT Alkaline Phosphatase Troponin I 0.15 H Total Protein Albumin Vitamin B12 Folate Nasal Screen MRSA (PCR) 06/11/18 06/11/18 06/11/18 06:30 13:20 17:26 WBC RBC Hgb Hct MCV MCH MCHC RDW Plt Count MPV Neut % (Auto) Lymph % (Auto) Clare % (Auto) Eos % (Auto) Baso % (Auto) Neut # (Auto) Lymph # (Auto) Clare # (Auto) Eos # (Auto) Baso # (Auto) WBC Differential Differential Comment PT INR Puncture Site Right radial Patient Temperature 98.6 O2 Saturation 90 ABG pH 7.20 L* ABG pCO2 80 H* ABG pO2 80 ABG HCO3 30 H ABG O2 Content 14.5 ABG Base Excess 2.8 H ABG Methemoglobin 1.5 Shun Test Present Hemoglobin 11.4 L Carboxyhemoglobin 0.8 O2 Delivery Device Bipap Liter Flow Vent Setting [id number] Inspired O2 45 Critical Value Yes Sodium 131 L Potassium 4.1 Chloride 95 L Carbon Dioxide 29.4 Anion Gap 7 BUN 31 H Creatinine 0.52 L Estimated GFR Greater than 89 POC Glucose Random Glucose 121 H Hemoglobin A1c Uric Acid 3.0 Calcium 9.5 Phosphorus 3.0 Magnesium Iron TIBC % Saturation Ferritin Total Bilirubin AST ALT Alkaline Phosphatase Troponin I Total Protein Albumin Vitamin B12 Folate Nasal Screen MRSA (PCR) 06/11/18 06/11/18 06/11/18 17:50 18:20 18:37 WBC RBC Hgb Hct MCV MCH MCHC RDW Plt Count MPV Neut % (Auto) Lymph % (Auto) Clare % (Auto) Eos % (Auto) Baso % (Auto) Neut # (Auto) Lymph # (Auto) Clare # (Auto) Eos # (Auto) Baso # (Auto) WBC Differential Differential Comment PT INR Puncture Site Patient Temperature O2 Saturation ABG pH ABG pCO2 ABG pO2 ABG HCO3 ABG O2 Content ABG Base Excess ABG Methemoglobin Shun Test Hemoglobin Carboxyhemoglobin O2 Delivery Device Liter Flow Vent Setting Inspired O2 Critical Value Sodium 130 L Potassium 4.3 Chloride 94 L Carbon Dioxide 30.6 Anion Gap 5 BUN 34 H Creatinine 0.53 L Estimated GFR Greater than 89 POC Glucose 166 H Random Glucose 151 H Hemoglobin A1c Uric Acid Calcium 9.8 Phosphorus Magnesium Iron TIBC % Saturation Ferritin Total Bilirubin AST ALT Alkaline Phosphatase Troponin I Total Protein Albumin Vitamin B12 Folate Nasal Screen MRSA (PCR) Not detected 06/12/18 06/12/18 06/12/18 05:38 05:38 10:50 WBC RBC Hgb Hct MCV MCH MCHC RDW Plt Count MPV Neut % (Auto) Lymph % (Auto) Clare % (Auto) Eos % (Auto) Baso % (Auto) Neut # (Auto) Lymph # (Auto) Clare # (Auto) Eos # (Auto) Baso # (Auto) WBC Differential Differential Comment PT 45.4 H D INR 4.5 Puncture Site Right radial Patient Temperature 98.6 O2 Saturation 96 ABG pH 7.35 L ABG pCO2 67 H* ABG pO2 135 H ABG HCO3 36 H ABG O2 Content 16.3 ABG Base Excess 9.7 H ABG Methemoglobin 1.5 Shun Test Present Hemoglobin 11.9 L Carboxyhemoglobin 0.9 O2 Delivery Device Bipap Liter Flow Vent Setting [id number] Inspired O2 40 Critical Value Yes Sodium 133 L Potassium 3.2 L D Chloride 93 L Carbon Dioxide 32.8 H Anion Gap 7 BUN 34 H Creatinine 0.59 L Estimated GFR Greater than 89 POC Glucose Random Glucose 116 H Hemoglobin A1c Uric Acid Calcium 9.7 Phosphorus Magnesium Iron TIBC % Saturation Ferritin Total Bilirubin AST ALT Alkaline Phosphatase Troponin I Total Protein Albumin Vitamin B12 Folate Nasal Screen MRSA (PCR) Result Diagrams: 06/11/18 06:30 06/12/18 05:38 Microbiology: Microbiology 06/07/18 17:25 Urine Culture - Final Catheterized Urine No growth in 48 hours Imaging: Ankle X-Ray 06/07/18 00:00 CONCLUSION: No evidence of recent bony injury. Femur X-Ray 06/07/18 00:00 CONCLUSION: No evidence of recent bony injury. Knee X-Ray 06/07/18 11:08 CONCLUSION: 1. Moderate sized suprapatellar effusion. 2. No acute fracture. Hip CT 06/09/18 00:00 CONCLUSION: 1. No evidence of fracture. 2. Minimal osteoarthritic findings of the hips. 3. Collapsed urinary bladder with Barnett catheter in place. Diffuse nonspecific urinary bladder wall thickening. Chest X-Ray 06/12/18 10:47 CONCLUSION: No appreciable change. Patient/Family Conference Present at Family Conference: Met with patient's son (Luis) at patient's bedside and again in the family conference room. Family Conference Location: Bedside, Hallway Issues Discussed: * Palliative care role, purpose, approach * Additional medical, psychosocial, and spiritual history * Patients general health, functional status, and cognitive changes in the months leading up to the current hospitalization * Patient/family understanding of the current medical problems * Patient/family understanding of prognosis * Patients goals of care as best understood from advance directives and/or conversations and/or values * Current medical treatment options and benefits/burdens of those options * Likely scenarios comparing ongoing aggressive care with a transition to comfort measures only * Questions answered to the best of my ability * Palliative care contact information provided Assessment and Plan Pertinent Non-Medical Issues: Psychosocial: Patient is originally from the [place]. When he got he and his (Dahiana) moved to [facility]. Patient had several different jobs. 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 He and his moved to [place] when they retired in the early . Patient's on [facility] in November,. They had been for approximately 60 years. He and his had 2 sons. Spiritual: Scientology sabra Legal: Per [place] statutes, in the absence of written advanced directives healthcare proxy decision making falls to the patient's 2 adult sons. Ethical issues impacting care: No known ethical issues impacting care at this time. Important Contacts: Jose Angel Miller, son: [phone] Luis Miller, son: [phone] Prognosis: Patient is an 87-year-old male who is currently in the intensive care unit on BiPAP. Recent chest x-ray showed signs of fluid overload with bilateral pulmonary edema. PMH: COPD, CAD, recurrent UTI, atrial fibrillation on anticoagulation therapy. Patient is currently on Coumadin due to his atrial fibrillation; this puts him at high risk for complications given his recent functional decline and history of frequent falls. Code Status: No Code DNR Plan: * NO CODE-DNR/DNI * Per [place] statutes, in the absence of written advanced directives healthcare proxy decision making falls to the patient's 2 adult sons. * Discussed patient with RN, Charity. * Patient's children would like to honor patient's previously verbalized wishes and transition to hospice services for end-of-life care and symptom management of dyspnea and pain. Son, Jose Angel, will be flying in from [place] tomorrow 2018. They would like to transition to hospice services after risks arrival to [place]. * Hospice consult pending. Discussed patient with hospice intake as well as hospice admission nurse, Valentino. * Palliative care contact information was provided to the patient's son, Luis. * Symptom management-dyspnea: Patient's respiratory status deteriorated on 2018 requiring BiPAP placement. Pulmonology was consulted. Patient's son and [id number] were at bedside; they stated they would not want the patient intubated if his condition were to further deteriorate. Chest x-ray showed signs of fluid overload with bilateral pulmonary edema. Currently on Symbicort 12 hours and PRN duo nebs. Received Bumex x2 and furosemide x3 on 06/11/2018; received Diamox x1 on 06/12/2018. 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 He was receiving steroid injections in his right knee but stopped when he was told he had [id number] arthritis in the right knee and steroids would not be beneficial. He is now complaining of right lower extremity pain. X -ray right femur showed no evidence of recent bony injury. Complete x-ray of the right knee revealed moderate sized suprapatellar effusion, but no fracture. CT hip minimal osteoarthritic findings of the hips. Currently only PRN acetaminophen is ordered. Per notes, patient had adverse reactions to [place] and is allergic to morphine. * Palliative care will continue to follow this patient throughout his hospitalization to establish stress, assist with symptom management and clarification of medical treatment goals. Appreciation Thank you for the opportunity to participate in the care of Steve Miller. Attestation Attestation: To help prompt me to consider important information that might be impacting today's encounter and assessment, information from prior notes written by myself or my colleagues may have been "brought forward" into today's note. My signature on this note, however, is an attestation that I personally performed the exam, history, and/or decision-making noted today, and, unless otherwise indicated, the interactions with patient, family, and staff as well as the review of records all occurred today. I also attest that the listed assessment and stated plan reflect my best clinical judgment today based on the combination of historical information, prior notes, and today's exam/ interactions. When time spent is documented, it refers only to time spent today by the signer, or if indicated, combined time spent today by collaborating physician/nurse practitioner.
--- NOTE | 2018-06-12 19:36 | P.PNPL ---
Subjective Interval history: 87 YOWM with RF, on CPAP Requiring Fi02 100% Obtunded Palliative care evaluatig pt Physical Exam Vital signs: Vital Signs 06/11/18 20:00 06/11/18 20:31 06/11/18 21:00 Temperature 97.5 F L Pulse Rate 71 69 Respiratory Rate 66 H 54 H Blood Pressure Pulse Oximetry 98 99 100 06/11/18 21:01 06/11/18 21:03 06/11/18 21:04 Temperature Pulse Rate 69 83 82 Respiratory Rate 42 H 41 H 36 H Blood Pressure 151/71 H 144/80 H 153/77 H Pulse Oximetry 100 100 100 06/11/18 21:05 06/11/18 21:06 06/11/18 22:00 Temperature Pulse Rate 80 80 70 Respiratory Rate 35 H 47 H 64 H Blood Pressure 147/75 H 153/74 H Pulse Oximetry 100 100 99 06/11/18 22:10 06/11/18 23:00 06/12/18 00:00 Temperature 98.6 F Pulse Rate 69 69 69 Respiratory Rate 68 H 69 H 71 H Blood Pressure 143/67 H 130/62 121/60 Pulse Oximetry 99 100 100 06/12/18 00:12 06/12/18 01:00 06/12/18 02:00 Temperature Pulse Rate 70 69 Respiratory Rate 38 H 46 H Blood Pressure 131/60 128/60 Pulse Oximetry 100 99 98 06/12/18 03:00 06/12/18 04:00 06/12/18 05:00 Temperature 97.8 F Pulse Rate 69 72 69 Respiratory Rate 49 H 41 H 50 H Blood Pressure 118/58 L 122/60 110/55 L Pulse Oximetry 98 98 98 06/12/18 07:25 06/12/18 08:00 06/12/18 09:00 Temperature Pulse Rate 73 69 Respiratory Rate 43 H Blood Pressure 93/54 L Pulse Oximetry 99 98 06/12/18 11:40 06/12/18 12:00 06/12/18 16:00 Temperature 97.8 F 98.6 F Pulse Rate 71 69 Respiratory Rate 38 H 32 H Blood Pressure 148/67 H 139/64 Pulse Oximetry 98 98 98 06/12/18 16:35 06/12/18 16:51 Temperature Pulse Rate Respiratory Rate Blood Pressure Pulse Oximetry 98 99 Intake & Output 06/12/18 06/12/1806/13/19 06:59 18:59 06:59 Intake Total 400 / 400 Output Total 500 / 500 1450 / 1450 Balance -500 / -500 -1050 / -1050 Weight 69.8 kg Intake: IV 400 / 400 KCl 20 mEq Premix Inj 20 meq In 400 / 400 100 ml @ 50 mls/hr IV.SIG Q2H PRN Rx#:[id number] Oral 0 / 0 Output: Urine Amount (Catheter) 500 / 500 1450 / 1450 Condom 500 / 500 1450 / 1450 Other: # Bowel Movements 0 GENERAL: Elderly WM on BIPAP SKIN: Warm and dry. HEAD: Normocephalic. EYES: No scleral icterus. No injection or drainage. NECK: Supple, trachea midline. No JVD or lymphadenopathy. CARDIOVASCULAR: Regular rate and rhythm without murmurs, gallops, or rubs. RESPIRATORY: Breath sounds equal bilaterally. No accessory muscle use. GASTROINTESTINAL: Abdomen soft, non-tender, nondistended. MUSCULOSKELETAL: No cyanosis, or edema. BACK: Nontender without obvious deformity. No CVA tenderness. - Urinary Catheter Management Indwelling Urethral Catheter Cath placed during this visit: yes Urethral indwelling: Yes Reason for continuing: Decision to DC catheter Insertion date: 06/07/18 Insertion time: 14:45 Condom Cath placed during this visit: yes, but has since been removed by the nurse Reason for continuing: Decision to DC catheter Removal date: 06/11/18 Removal time: 18:00 Assessment and Plan - Plan IMPRESSION: 1. Hypercapnic respiratory failure. 2. Congestive heart failure. 3. Small pleural effusion. 4. Hyponatremia. 5. History of atrial flutter, status post pacemaker placement. 6. DO NOT RESUSCITATE. PLAN: Cont BIPAP fi02 100% Aerosol nebs DNR Palliative care evaluating Family considering Hospice after his son arrives from [place]
[2018-06-13] MEDS: Budesonide-Formoterol 160/4.5 MCG 6 GM Inhaler INH SCH ×2 (03:41→08:00)
[2018-06-13] MEDS: Chlorhexidine Gluconate 2% 1 Pack (2 Cloths) TOPICAL SCH (05:12)
[2018-06-13 07:56] LABS: Baso % (Auto) 0.1 % (0.0-2.0); Hematocrit 27.7 % (39.0-51.0); Hemoglobin 9.2 gm/dL (13.0-17.0); Lymph # (Auto) 0.2 th/mm3 (1.0-4.8); Mean Corpuscular HGB Conc 33.2 % (32.0-36.0); Mean Corpuscular Hemoglobin 32.2 pg (27.0-34.0); Mean Corpuscular Volume 96.8 fL (80.0-100.0); Mean Platelet Volume 8.1 fL (7.0-11.0); Mono # (Auto) 1.2 th/mm3 (0.0-0.9); Mono % (Auto) 7.5 % (0.0-8.0); Neut # (Auto) 14.4 th/mm3 (1.8-7.7); Neut % (Auto) 91.4 % (16.0-70.0); Platelet Count 225 th/mm3 (150-450); Red Blood Count 2.86 mil/mm3 (4.50-5.90); White Blood Count 15.8 th/mm3 (4.0-11.0)
[2018-06-13] MEDS: Polyethylene Glycol 3350 17 GM Packet PO SCH (08:00)
[2018-06-13] MEDS: Sodium Chloride 1 GM Tablet PO SCH ×2 (08:00→12:49)
[2018-06-13] MEDS: Escitalopram 10 MG Tablet PO SCH (08:00)
[2018-06-13] MEDS: Finasteride 5 MG Tablet PO SCH (08:00)
[2018-06-13 08:03] LABS: Prothrombin Time 86.1 sec (9.8-11.6)
[2018-06-13 08:20] LABS: INR 8.6 Ratio
[2018-06-13 08:27] LABS: Calcium 9.8 mg/dL (8.5-10.1); Carbon Dioxide 34.3 meq/L (21.0-32.0); Magnesium 2.2 mg/dL (1.5-2.5); Phosphorus 3.2 mg/dL (2.5-4.9); Potassium 3.7 meq/L (3.5-5.1)
--- NOTE | 2018-06-13 12:13 | P.PNCC ---
Subjective Subjective Remarks/Hospital Course: 06/12: The patient remains lethargic on BiPAP currently. Overnight the patient was made DNR. Question with son at bedside, requesting palliative care/ possible hospice transition. Currently chest x-ray pending ABG pending rule out hypercarbia. Sodium level 134 today. 06/13: Patient required last evening increasing oxygen. Throughout the night the patient became hypotensive, noted family was at bedside. Per palliative care report and discussion with patient's son plan is for possible transfer to hospice care facility today. Hyponatremia resolved. The patient remains n.p.o. and on BiPAP to maintain oxygenation. INR noted to be significantly elevated, repeat labs underway. 06/13: Noted repeat INR supratherapeutic. Discussion with family regarding treatment, utilizing Kcentra. Family refused, decided no further aggressive measures. At approximately 1500, no family present in room, decision made by patient and family removal of BiPAP. Refusal of all medical interventions at this time. Requested comfort care measures be instituted at this time. Hospice enroute. Patient and family decision to remain in hospital, decision made not to transfer to outside hospice facility. Upon arrival of hospice nurse, I discussed the family's decision. Family also informed hospice nurse. Patient will be discharged to inpatient hospice at this time. Comfort care measures have been initiated. Objective Vital Signs / I&O: Vital Signs 06/12/18 11:40 06/12/18 12:00 06/12/18 16:00 Temperature 97.8 F 98.6 F Pulse Rate 71 69 Respiratory Rate 38 H 32 H Blood Pressure 148/67 H 139/64 Pulse Oximetry 98 98 98 06/12/18 16:35 06/12/18 16:51 06/12/18 19:49 Temperature Pulse Rate Respiratory Rate Blood Pressure Pulse Oximetry 98 99 98 06/12/18 20:00 06/12/18 23:40 06/13/18 00:00 Temperature 97.7 F 97.7 F Pulse Rate 69 69 Respiratory Rate 28 H 28 H Blood Pressure 64/34 L 94/50 L Pulse Oximetry 98 100 98 06/13/18 03:55 06/13/18 04:00 06/13/18 07:35 Temperature 99 F Pulse Rate 69 Respiratory Rate 28 H Blood Pressure 104/58 L Pulse Oximetry 98 98 98 06/13/18 08:00 06/13/18 09:00 06/13/18 11:01 Temperature 99.5 F Pulse Rate 69 69 Respiratory Rate 43 H Blood Pressure 105/55 L Pulse Oximetry 96 97 Intake & Output 06/12/18 06/13/18 06/13/18 18:59 06:59 18:59 Intake Total 400 / 400 0 / 0 Output Total 1450 / 1450 250 / 250 Balance -1050 / -1050 -250 / -250 Weight 67.3 kg Intake: IV 400 / 400 KCl 20 mEq Premix Inj 20 meq In 400 / 400 100 ml @ 50 mls/hr IV.SIG Q2H PRN Rx#:[id number] Oral 0 / 0 0 / 0 Output: Urine Amount (Catheter) 1450 / 1450 250 / 250 Condom 1450 / 1450 250 / 250 Other: Date of Last Bowel Movement 06/07/18 # Bowel Movements 0 0 Result Diagrams: 06/13/18 07:04 06/13/18 07:04 Other Results: Laboratory Results WBC 15.8 th/mm3 (4.0-11.0) H 06/13/18 07:04 RBC 2.86 mil/mm3 (4.50-5.90) L 06/13/18 07:04 Hgb 9.2 gm/dL (13.0-17.0) L 06/13/18 07:04 Hct 27.7 % (39.0-51.0) L 06/13/18 07:04 MCV 96.8 fL (80.0-100.0) 06/13/18 07:04 MCH 32.2 pg (27.0-34.0) 06/13/18 07:04 MCHC 33.2 % (32.0-36.0) 06/13/18 07:04 RDW 16.0 % (11.6-17.2) 06/13/18 07:04 Plt Count 225 th/mm3 (150-450) 06/13/18 07:04 MPV 8.1 fL (7.0-11.0) 06/13/18 07:04 Neut % (Auto) 91.4 % (16.0-70.0) H 06/13/18 07:04 Lymph % (Auto) 1.0 % (9.0-44.0) L 06/13/18 07:04 [place] % (Auto) 7.5 % (0.0-8.0) 06/13/18 07:04 Eos % (Auto) 0.0 % (0.0-4.0) 06/13/18 07:04 Baso % (Auto) 0.1 % (0.0-2.0) 06/13/18 07:04 Neut # (Auto) 14.4 th/mm3 (1.8-7.7) H 06/13/18 07:04 Lymph # (Auto) 0.2 th/mm3 (1.0-4.8) L 06/13/18 07:04 [place] # (Auto) 1.2 th/mm3 (0.0-0.9) H 06/13/18 07:04 Eos # (Auto) 0.0 th/mm3 (0.0-0.4) 06/13/18 07:04 Baso # (Auto) 0.0 th/mm3 (0.0-0.2) 06/13/18 07:04 WBC Differential . 06/13/18 07:04 Differential Comment Auto diff final 06/13/18 07:04 PT 86.1 sec (9.8-11.6) H D 06/13/18 07:04 INR 8.6 Ratio H* 06/13/18 07:04 Puncture Site Right radial 06/12/18 10:50 Patient Temperature 98.6 06/12/18 10:50 O2 Saturation 96 % (90-100) 06/12/18 10:50 ABG pH 7.35 (7.380-7.420) L 06/12/18 10:50 ABG pCO2 67 mmHg (38-42) H* 06/12/18 10:50 ABG pO2 135 mmHG (61-120) H 06/12/18 10:50 ABG HCO3 36 mmol/L (22-26) H 06/12/18 10:50 ABG O2 Content 16.3 Vol % (12.0-20.0) 06/12/18 10:50 ABG Base Excess 9.7 mmol/L (-2-2) H 06/12/18 10:50 ABG Methemoglobin 1.5 % (0-2) 06/12/18 10:50 Shun Test Present 06/12/18 10:50 Hemoglobin 11.9 G/DL (12.0-16.0) L 06/12/18 10:50 Carboxyhemoglobin 0.9 % (0-4) 06/12/18 10:50 O2 Delivery Device Bipap 06/12/18 10:50 Liter Flow 6.00 L/M 06/11/18 05:04 Vent Setting [id number] 06/12/18 10:50 Inspired O2 40 % 06/12/18 10:50 Critical Value Yes 06/12/18 10:50 Sodium 138 meq/L (136-145) 06/13/18 07:04 Potassium 3.7 meq/L (3.5-5.1) 06/13/18 07:04 Chloride 96 meq/L (98-107) L 06/13/18 07:04 Carbon Dioxide 34.3 meq/L (21.0-32.0) H 06/13/18 07:04 Anion Gap 8 meq/L (5-15) 06/13/18 07:04 BUN 67 mg/dL (7-18) H 06/13/18 07:04 Creatinine 1.09 mg/dL (0.60-1.30) 06/13/18 07:04 Estimated GFR 64 mL/min (>89) L 06/13/18 07:04 POC Glucose 166 mg/dl (68-110) H 06/11/18 18:37 Random Glucose 98 mg/dL (74-106) 06/13/18 07:04 Hemoglobin A1c 5.2 % (4.3-6.0) 06/09/18 06:35 Uric Acid 3.0 mg/dl (2.6-7.2) 06/11/18 06:30 Calcium 9.8 mg/dL (8.5-10.1) 06/13/18 07:04 Phosphorus 3.2 mg/dL (2.5-4.9) 06/13/18 07:04 Magnesium 2.2 mg/dL (1.5-2.5) 06/13/18 07:04 Iron 17 mcg/dL (65-175) L 06/10/18 04:47 TIBC 193 mcg/dL (250-450) L 06/10/18 04:47 % Saturation 8.8 % (20-50) L 06/10/18 04:47 Ferritin 680 ng/mL (26-388) H 06/10/18 04:47 Total Bilirubin 1.1 mg/dL (0.2-1.0) H 06/10/18 04:47 AST 31 U/L (15-37) 06/10/18 04:47 ALT 29 U/L (12-78) 06/10/18 04:47 Alkaline Phosphatase 85 U/L (45-117) 06/10/18 04:47 Troponin I 0.15 ng/mL (0.02-0.05) H 06/11/18 06:30 Total Protein 6.3 g/dL (6.4-8.2) L 06/10/18 04:47 Albumin 2.9 g/dL (3.4-5.0) L 06/10/18 04:47 Vitamin B12 1198 pg/mL (193-986) H 06/10/18 04:47 Folate 11.3 ng/mL (3.1-17.5) 06/10/18 04:47 TSH 1.750 uIU/mL (0.358-3.740) 06/09/18 06:35 Free T4 1.29 ng/dL (0.76-1.46) 06/09/18 06:35 Urine Color Yellow (Yellw/Straw) 06/07/18 17:25 Urine Clarity Clear (Clear) 06/07/18 17:25 Urine pH 6.0 (5.0-8.5) 06/07/18 17:25 Ur Specific [place] 1.018 (1.002-1.035) 06/07/18 17:25 Urine Protein 30 mg/dL (Neg-Trace) H 06/07/18 17:25 Urine Glucose (UA) Negative mg/dL (Negative) 06/07/18 17:25 Urine Ketones 20 mg/dL (Negative) 06/07/18 17:25 Urine Occult Blood Moderate (Negative) H 06/07/18 17:25 Urine Nitrate Negative (Negative) 06/07/18 17:25 Urine Bilirubin Negative (Negative) 06/07/18 17:25 Urine Urobilinogen 4 or greater mg/dL (Less than 2) 06/07/18 17:25 Ur Leukocyte Esterase Negative (Negative) 06/07/18 17:25 Urine RBC 119 /hpf (0-3) H 06/07/18 17:25 Urine WBC 1 /hpf (0-5) 06/07/18 17:25 Ur Squamous Epith Cells <1 /hpf (0-5) 06/07/18 17:25 Urine Bacteria Occasional /hpf (None) H 06/07/18 17:25 Hyaline Casts 3 /lpf (0-3) 06/07/18 17:25 Urine Mucus Few /lpf (Occasional) H 06/07/18 17:25 Micro UA Comment Cath-culture ind 06/07/18 17:25 Ur Microscopic Review Not Reportable 06/07/18 17:25 Urine Culture Comments Cath-cult indicated 06/07/18 17:25 Nasal Screen MRSA (PCR) Not detected (Negative) 06/11/18 18:20 Impressions Ankle X-Ray 06/07/18 00:00 CONCLUSION: No evidence of recent bony injury. Femur X-Ray 06/07/18 00:00 CONCLUSION: No evidence of recent bony injury. Knee X-Ray 06/07/18 11:08 CONCLUSION: 1. Moderate sized suprapatellar effusion. 2. No acute fracture. Hip CT 06/09/18 00:00 CONCLUSION: 1. No evidence of fracture. 2. Minimal osteoarthritic findings of the hips. 3. Collapsed urinary bladder with Barnett catheter in place. Diffuse nonspecific urinary bladder wall thickening. Chest X-Ray 06/12/18 10:47 CONCLUSION: No appreciable change. Objective Remarks: GENERAL: This is a well-developed well-nourished elderly gentleman currently slightly more alert SKIN: Warm and dry. HEAD: Atraumatic. Normocephalic. EYES: Pupils equal and round. No scleral icterus. No injection or drainage. ENT: No nasal bleeding or discharge. Mucous membranes pink and moist. NECK: Trachea midline. No JVD. CARDIOVASCULAR: Normal rate, regular rhythm. RESPIRATORY: No accessory muscle use. Clear to auscultation. Breath sounds equal bilaterally. On BiPAP 18/5 .40% GASTROINTESTINAL: Abdomen soft, non-tender, nondistended. No guarding. MUSCULOSKELETAL: Extremities without clubbing, cyanosis, or edema. No obvious deformities. NEUROLOGICAL: Lethargic but arousable. No gross focal/sensory deficits. Follows commands in all 4 extremities. Assessment and Plan - Assessment and Plan Plan: Respiratory failure -Fluid overload -Gentle diuresis -06/11 Pulmonary edema on x-ray -Echo shows preserved EF 65% -Patient is DNR/DNI -BiPAP PRN to keep sats above 92 Acute Hyponatremia Possibly secondary to medication/hydrochlorothiazide -TSH/T4 within normal limits Holding home HCTZ -Continue NaCl tablets 1gm tid-currently on hold secondary to extreme lethargy. Sodium level 133 -Continue to monitor BMP Encephalopathy -secondary to hyponatremia -hypercarbia -Improving -Follow-up repeat ABG Intractable right knee pain with effusion -Secondary to contusion injury with effusion, compounded with supratherapeutic INR -Knee xray shows Moderate sized suprapatellar effusion. -Ice pack, -Pain medication -PT consult A. fib -Supratherapeutic INR now 8.6 -Coumadin on hold-patient has not been taking anything by mouth for greater than 72-hour BPH with urinary retention -Continue Finasteride, Flomax Depression/Anxiety -Continue home lexapro Hypercholesterolemia -Continue Lipitor Chronic Normocytic Anemia -Per chart review history of anemia - negative hemoccult - previously on iron supplement with no improvement -Monitor H&H and transfuse to keep hemoglobin above 7 Constipation -patient reports no BM in 4 days, although states he has chronic hx of constipation -give Miralax daily -monitor for BM -Maintain n.p.o. secondary to lethargy DVT Prophylaxis -Coumadin Discussion with son no aggressive measures requested. Son/family considering hospice care at this time. Palliative care has been consulted hospice has been consulted. Per palliative care report patient to be transferred possibly to hospice center this afternoon Level 3 follow-up Code Status: DNR/DNI Discussed Condition With: SALARY MANAGER at bedside
[2018-06-13 12:40] VITALS: RESP 24; TEMP 99.2
[2018-06-13 13:06] LABS: INR 11.6 Ratio
[2018-06-13 13:21] LABS: Albumin 2.4 g/dL (3.4-5.0)
[2018-06-13 13:22] LABS: Total Protein 6.3 g/dL (6.4-8.2)
[2018-06-13] MEDS ORDERED: Bisacodyl 10 MG Supp RECTAL PRN (15:02)
[2018-06-13] MEDS ORDERED: HYDROmorphone PF Inj 1 MG/ML Ampul IV.PUSH PRN (15:02)
[2018-06-13] MEDS ORDERED: Hyoscyamine Inj 0.5 MG/ML Ampul IV.PUSH PRN (15:02)
[2018-06-13] MEDS ORDERED: Acetaminophen 650 MG Supp RECTAL PRN (15:02)
[2018-06-13] MEDS: fentaNYL Citrate Inj 100 MCG/2 ML Ampul IV.PUSH ONE ×2 (15:20→16:27)
--- NOTE | 2018-06-13 16:20 | P.DN ---
- Provider Primary care physician: Steven Milton DO Admitting clinician: Arnie Rodriguez Attending physician on admission: Casey Vaughn Consults: 06/11/18 11:35 Consult to Pulmonology Routine Consulting Provider: Hector Woody Preferred Custom Applicator:: Hector Woody Reason for Consultation: resp dostress , Dr Woody made aware Notified:: Office Spoke with:: Matthew Date Notified:: 06/11/18 Time Notified:: 11:53 Ordering Provider: LALY 06/11/18 18:34 Consult to Equipment Sterilizer Stat Consulting Provider: Casey Vaughn For STAT consult, spoke directly to:: Billy Schwartz Reason for Consultation: Respiratory Acidosis Spoke with:: verified dr to dr with Dr vaughn Date Notified:: 06/11/18 Time Notified:: 22:00 Ordering Provider: LLAY 06/12/18 10:48 Consult to Palliative Care Routine Consulting Provider: Cristo Chen Reason for Consultation: Goals of care, patient currently in respiratory distress family's deciding whether to have hospice care. Patient made DNR during the night Notified:: Service Spoke with:: Lula Date Notified:: 06/12/18 Time Notified:: 10:55 Ordering Provider: JOHNY Pronouncing clinician: aFith Goodwin - Admitting Diagnosis (1) Acute respiratory failure with hypercapnia - Date and Time Date of admission: 06/07/18 12:55 - Summary Procedures: None Brief History: 87-year-old white male being admitted for hyponatremia. Patient was in his usual state of health until yesterday as he was try to get off the toilet he fell as he was trying to get up off of it, misplaced his foot. He denies experiencing lightheadedness or chest pain surrounding the incident. Landed on his right knee. Has been taking Tylenol every 4 hours to no avail. Due to the persistent pain decided to come in today. Reports having worsening pain with weightbearing, had to call 911 to be transported to the hospital today. Patient reports having a history of arthritis in both knees, used to get steroid shots in the right knee but says he was told it was [id number] arthritis which would not respond to steroids. Denies having any arthroplasties or fracture repairs. In the emergency department plain film was obtained of the right knee which showed a prepatellar effusion, patient's INR was 4.7, has a history of A. fib for which he takes warfarin. Also has a pacemaker as well. His overhead worker is Dr. Ramos. Patient noted to have a sodium of 123 in the emergency department, chronically his sodium fluctuates from 130-136. Apparently takes hydrochlorthiazide is at home blood pressure medication. ER nurse also noted that the patient had trouble urinating, bladder scan demonstrated 800 cc, had a Barnett placed. Result Diagrams: 06/13/18 07:04 06/13/18 07:04 Significant Findings: Abnormal Lab Results 06/12/18 06/13/18 06/13/18 22:39 07:04 07:04 WBC RBC Hgb Hct MCV MCH MCHC RDW Plt Count MPV Neut % (Auto) Lymph % (Auto) [place] % (Auto) Eos % (Auto) Baso % (Auto) Neut # (Auto) Lymph # (Auto) [place] # (Auto) Eos # (Auto) Baso # (Auto) WBC Differential Differential Comment PT 86.1 H D INR 8.6 H* Sodium 138 Potassium 4.1 D 3.7 Chloride 96 L Carbon Dioxide 34.3 H Anion Gap 8 BUN 67 H Creatinine 1.09 Estimated GFR 64 L Random Glucose 98 Calcium 9.8 Phosphorus 3.2 Magnesium 2.2 Total Bilirubin Direct Bilirubin Indirect Bilirubin AST ALT Alkaline Phosphatase Total Protein Albumin 06/13/18 06/13/18 06/13/18 07:04 12:38 12:38 WBC 15.8 H RBC 2.86 L Hgb 9.2 L Hct 27.7 L MCV 96.8 MCH 32.2 MCHC 33.2 RDW 16.0 Plt Count 225 MPV 8.1 Neut % (Auto) 91.4 H Lymph % (Auto) 1.0 L [place] % (Auto) 7.5 Eos % (Auto) 0.0 Baso % (Auto) 0.1 Neut # (Auto) 14.4 H Lymph # (Auto) 0.2 L [place] # (Auto) 1.2 H Eos # (Auto) 0.0 Baso # (Auto) 0.0 WBC Differential . Differential Comment Auto diff final PT 115.0 H D INR 11.6 H* Sodium Potassium Chloride Carbon Dioxide Anion Gap BUN Creatinine Estimated GFR Random Glucose Calcium Phosphorus Magnesium Total Bilirubin 0.9 Direct Bilirubin 0.4 H Indirect Bilirubin 0.5 AST 26 ALT 43 Alkaline Phosphatase 117 Total Protein 6.3 L Albumin 2.4 L Hospital Course: 06/12: The patient remains lethargic on BiPAP currently. Overnight the patient was made DNR. Question with son at bedside, requesting palliative care/ possible hospice transition. Currently chest x-ray pending ABG pending rule out hypercarbia. Sodium level 134 today. 06/13: Patient required last evening increasing oxygen. Throughout the night the patient became hypotensive, noted family was at bedside. Per palliative care report and discussion with patient's son plan is for possible transfer to hospice care facility today. Hyponatremia resolved. The patient remains n.p.o. and on BiPAP to maintain oxygenation. INR noted to be significantly elevated, repeat labs underway. 06/13: Noted repeat INR supratherapeutic. Discussion with family regarding treatment, utilizing Kcentra. Family refused, decided no further aggressive measures. At approximately 1500, no family present in room, decision made by patient and family removal of BiPAP. Refusal of all medical interventions at this time. Requested comfort care measures be instituted at this time. Hospice enroute. Patient and family decision to remain in hospital, decision made not to transfer to outside hospice facility. Upon arrival of hospice nurse, I discussed the family's decision. Family also informed hospice nurse. Patient will be discharged to inpatient hospice at this time. Comfort care measures have been initiated.
[2018-06-13 16:38] VITALS: BP 109/58; PULSE 72; O2SAT 67
== END 2018-06-13 16:08 | disposition expired | DRG 640 ==
LOC: NEPC 10:12 → NEDA 12:55 → HCIN 22:02 → N04 06-08 22:19 → HCIS 06-11 05:59 → HIMC 06-11 18:25
PROVIDERS: ADMIT Internal Medicine Critical Care Medicine; ATTEND Internal Medicine Critical Care Medicine
CPT/HCPCS: 36600; 71010; 71045; 73552; 73564; 73600; 73701; 80048; 80053; 80076; 81001; 82607; 82728; 82746; 82805; 82948; 82962; 83036; 83540; 83550; 83735; 84100; 84132; 84439; 84443; 84484; 84550; 85025; 85610; 87086; 87641; 93005; 93306; 94002; 94003; 94656; 94657; 94664; 97162; 97167; 99285; J1120; J1940; J2060; J2270; J3010; J3480; J7030; Q9967